=== PATIENT | female | born 1950 | race Caucasian/White ===

== ENCOUNTER 2019-12-02 22:12 | Emergency (ER) | payer MEDICARE, OTHER, SELFPAY ==
[2019-12-02 22:20] VITALS: BP 183/81; PULSE 78; RESP 16; TEMP 36.6; O2SAT 99; BMI 18.3
--- NOTE | 2019-12-03 00:01 | ED_ITS ---
Entered by Katina Raymundo, acting as scribe for Bill Lovelace MD Dec 02, 2019 22:12 HPI - General Adult General: Chief complaint: General Medical Stated complaint: sob, panic Time Seen by Provider: 12/02/19 23:56 Source: patient Mode of arrival: EMS Limitations: no limitations History of Present Illness: HPI narrative: 69 yo f came to the er pov with family for sob and panic attack. Onset was today. Pt states that she has also had a cough and that when she coughs it is tight. Pt denies a fever at this time. Pt states that she has had cancer in the past. MD complaint: shortness of breath, cough Onset (ago): day(s) (today) Radiation: non-radiation Relieving factors: none Exacerbating factors: none Associated symptoms: Reports chest pain, dyspnea and short of breath; Deny headache(s), rash or vomiting Treatments prior to arrival: none Review of Systems Const: Denies: fever or chills Eyes: Denies: change in vision ENMT: Denies: throat pain or mouth pain Card: Reports: chest pain Resp: Reports: shortness of breath GI: Denies: vomiting : Denies: difficulty urinating Musc: Denies: back pain or joint pain Skin/Breast: Denies: rash Neuro: Denies: headache Psych: Denies: depression Endo: Denies: excessive urination Leland/Lymph: Denies: easy bruising All/Imm: Denies: hives PFSH ED PFSH: Statuses (acute, chronic, etc) shown below reflect problem list status as previously entered and may not be historically accurate Social History Smoking and tobacco status: former smoker Physical Exam Const: COMMON NORMALS: no apparent distress and healthy appearing HENMT: COMMON NORMALS: normocephalic and external nose normal HEAD & SCALP: normocephalic NOSE: external nose normal and no nasal discharge (nasal dischage) Eye: COMMON NORMALS: PERRL PUPIL: Yes PERRL Neck/C-Spine: COMMON NORMALS: full ROM and no lymphadenopathy Chest: COMMONS NORMALS: inspection of chest normal Resp: COMMON NORMALS: normal respiratory effort and clear to auscultation bilaterally AUSCULTATION: clear to auscultation bilaterally Cardio: COMMON NORMALS: regular rate and regular rhythm RATE: regular rate RHYTHM: regular rhythm GI: COMMON NORMALS: soft to palpation PALPATION: Yes soft Extremity: COMMON NORMALS: normal to inspection, full ROM and normal capillary refill Psych: COMMON NORMALS: mental status grossly normal and cooperative Skin: COMMON NORMALS: no rashes or lesions noted GENERAL SKIN EXAM: no rashes or lesions noted Course Vital Signs: Vital signs: Vital Signs Temperature 97.9 F 12/02/19 22:20 Pulse Rate 84 12/03/19 00:30 Respiratory Rate 16 12/03/19 00:30 Blood Pressure 183/81 12/02/19 22:20 Pulse Oximetry 98 12/03/19 00:30 MDM - General Adult MDM Narrative: Medical decision making narrative: Patient presents here with dyspnea along with chest pain is atypical in nature. She has had anxiety along with a slight cough. X-ray and EKG are normal and troponins are normal as well. She has no signs of acute coronary cause or pulmonary embolism. Patient is stable for discharge and is to follow-up with primary care doctor in 3 to 5 days and is return to ER if worsening. She understands and agrees to plan. Lab Data: Labs: Lab Results 12/03/19 12/03/19 12/03/19 Range/Units 00:22 00:22 00:22 WBC 2.6 L (4.0-10.0) 10^3/ uL RBC 3.24 L (4.1-5.3) 10^6/u L Hgb 11.0 L (11.5-15.3) g/dL Hct 32.7 L (37.0-47.0) % MCV 100.9 H (81-99) fL MCH 34.0 (28.0-34.0) pg MCHC 33.6 (30.0-36.0) g/dL RDW 12.2 (12.1-15.1) % Plt Count 133 (130-400) 10^3/c mm MPV 9.5 (7.4-10.4) fL Neut % (Auto) 73.0 % Lymph % (Auto) 9.7 % Laurens % (Auto) 13.5 % Eos % (Auto) 1.5 % Baso % (Auto) 0.8 % Neut # (Auto) 1.9 (1.8-7.7) 10^3/u L Lymph # (Auto) 0.3 L (0.8-4.8) 10^3/u L Laurens # (Auto) 0.4 (0.2-0.9) 10^3/u L Eos # (Auto) 0.0 (0.0-0.8) 10^3/u L Baso # (Auto) 0.0 (0.0-0.1) 10^3/u L Nucleated RBC % (a uto) 0 % Nucleated RBCs # 0.0 /100WBC Sodium 138 (136-145) mmol/L Potassium 3.7 (3.5-5.1) mmol/L Chloride 102 (98-107) mmol/L Carbon Dioxide 23 (22-29) mmol/L Anion Gap 16.7 (5-19) BUN 14 (8-23) mg/dL Creatinine 1.1 H (0.5-0.9) mg/dL GFR Calculation 49.5 L (90-130) mL/min Glucose 101 (74-106) mg/dL Calcium 9.8 (8.8-10.2) mg/Dl Total Bilirubin 0.2 (0.15-1.2) mg/dL AST 20 (0-32) U/L ALT 17 (0-33) U/L Alkaline Phosphata se 42 (35-105) IU/L Troponin T Baselin e 13 H (0-10) ng/mL Troponin T 120 Min mary (0-10) ng/mL Delta Troponin T (0-10) ABS# Total Protein 6.7 (6.6-8.7) g/dL Albumin 4.9 (3.5-5.2) g/dL Globulin 1.8 (1.3-4.6) g/dL 12/03/19 Range/Units 02:06 WBC (4.0-10.0) 10^3/ uL RBC (4.1-5.3) 10^6/u L Hgb (11.5-15.3) g/dL Hct (37.0-47.0) % MCV (81-99) fL MCH (28.0-34.0) pg MCHC (30.0-36.0) g/dL RDW (12.1-15.1) % Plt Count (130-400) 10^3/c mm MPV (7.4-10.4) fL Neut % (Auto) % Lymph % (Auto) % Laurens % (Auto) % Eos % (Auto) % Baso % (Auto) % Neut # (Auto) (1.8-7.7) 10^3/u L Lymph # (Auto) (0.8-4.8) 10^3/u L Laurens # (Auto) (0.2-0.9) 10^3/u L Eos # (Auto) (0.0-0.8) 10^3/u L Baso # (Auto) (0.0-0.1) 10^3/u L Nucleated RBC % (a uto) % Nucleated RBCs # /100WBC Sodium (136-145) mmol/L Potassium (3.5-5.1) mmol/L Chloride (98-107) mmol/L Carbon Dioxide (22-29) mmol/L Anion Gap (5-19) BUN (8-23) mg/dL Creatinine (0.5-0.9) mg/dL GFR Calculation (90-130) mL/min Glucose (74-106) mg/dL Calcium (8.8-10.2) mg/Dl Total Bilirubin (0.15-1.2) mg/dL AST (0-32) U/L ALT (0-33) U/L Alkaline Phosphata se (35-105) IU/L Troponin T Baselin e (0-10) ng/mL Troponin T 120 Min mary 9.63 (0-10) ng/mL Delta Troponin T -3.37 L (0-10) ABS# Total Protein (6.6-8.7) g/dL Albumin (3.5-5.2) g/dL Globulin (1.3-4.6) g/dL Imaging Data^: CXR: Attestation: I personally reviewed and interpreted this imaging study as follows: My impression: no acute abnormality EKG Data^: EKG 1: Attestation: I personally reviewed and interpreted this EKG as follows: EKG interpretation date: 12/03/19 EKG interpretation time: 00:16 Interpretation: nsr hr [address] or t wave abnormalities qrs 106 qtc 412 EKG 2: EKG interpretation date: 12/03/19 EKG interpretation time: 02:18 Interpretation: nsr hr [address] or t wave abnormalities qrs 103 qtc 411 Discharge Plan Discharge Patient Disposition: Home, Self-Care Clinical Impression: Atypical chest pain Condition: Stable Prescriptions: No Action alprazolam 1 mg Tablet 1 mg PO DAILY RF: 0 Discharge Orders: Discharge Order (Routine); Ordered 12/03/19 Ordered By: Bill Lovelace Referrals: Ruy Haro MD [Primary Care Provider] - 4-7 days () Discharge Diet: Advance as tolerated Discharge Activity: Resume usual activity Patient Instructions: Chest Pain (ED) Coding Level of Care Code ED Corn Breeder for Chg Fwd Exam Problem Focused The documentation recorded by the Zackary delcid Stephanie Lyn, accurately reflects the service I personally performed and the decisions made by Radu nunes Korby, MD Dec 02, 2019 22:12
--- NOTE | 2019-12-03 00:04 | XR_ITS ---
WS: [id number] PORTABLE CHEST HISTORY: dyspnea COMPARISON: 11/08/2018 Hyperexpanded lungs with changes suspicious for emphysema. Similar to prior studies. No pneumonia. No rmal vasculature. No pleural effusion or pneumothorax. Cardiac size: Normal. Mediastinum/Aorta: Normal mediastinum. No osseous abnormality seen. XR/XR chest 1V portable [id number] IMPRESSION: Chronic emphysema with no pneumonia.
[2019-12-03] MEDS: LORazepam 2 mg/mL INJ 1 mL 0.5 MG IVP (00:05)
[2019-12-03 00:30] VITALS: PULSE 84; RESP 16; O2SAT 98
[2019-12-03 00:48] LABS: Alanine Aminotransferase 17 U/L (0-33); Albumin Level 4.9 g/dL (3.5-5.2); Alkaline Phosphatase 42 IU/L (35-105); Anion Gap 16.7 (5-19); Aspartate Amino Transferase 20 U/L (0-32); Blood Urea Nitrogen 14 mg/dL (8-23); Calcium 9.8 mg/Dl (8.8-10.2); Carbon Dioxide 23 mmol/L (22-29); Chloride 102 mmol/L (98-107); Globulin 1.8 g/dL (1.3-4.6); Glomerular Filtration Rate 49.5 mL/min (90-130); Glucose 101 mg/dL (74-106); Potassium 3.7 mmol/L (3.5-5.1); Sodium 138 mmol/L (136-145); Total Bilirubin 0.2 mg/dL (0.15-1.2); Total Protein 6.7 g/dL (6.6-8.7)
[2019-12-03 00:52] LABS: Troponin(5th) Baseline 13 ng/mL (0-10)
[2019-12-03 01:16] LABS: Basophils % 0.8 %; Eosinophils % 1.5 %; Hematocrit 32.7 % (37.0-47.0); Lymphocytes # 0.3 10^3/uL (0.8-4.8); Lymphocytes % 9.7 %; Mean Corpuscular HGB Conc 33.6 g/dL (30.0-36.0); Mean Corpuscular Volume 100.9 fL (81-99); Mean Platelet Volume 9.5 fL (7.4-10.4); Monocytes # 0.4 10^3/uL (0.2-0.9); Monocytes % 13.5 %; Neutrophils # 1.9 10^3/uL (1.8-7.7); Nucleated Red Blood Cells % 0 %; Platelet Count 133 10^3/cmm (130-400); Red Blood Count 3.24 10^6/uL (4.1-5.3); Red Cell Distribution Width 12.2 % (12.1-15.1); White Blood Count 2.6 10^3/uL (4.0-10.0)
--- NOTE | 2019-12-03 02:05 | ECG_ITS ---
Measurements Intervals Frannie Rate: 66 P: 72 IN: 105 QRS: -27 QRSD: 103 T: 64 QT: 398 QTc: 417 SINUS RHYTHM WITH SHORT IN INTERVAL BORDERLINE LEFT AXIS DEVIATION [QRS AXIS < -20] Compared to ECG 11/08/2018 09:36:08 Short IN interval now present Electronically Signed On 12-03-2019 19:23:03 SCREW MACHINE HAND by Triston Livingston M.D. [email or web address]
[2019-12-03 03:39] LABS: Troponin 5 2HR 9.63 ng/mL (0-10)
[2019-12-03 03:43] LABS: Troponin 5 2HR Delta -3.37 ABS# (0-10)
[2019-12-03 03:57] VITALS: BP 158/75; PULSE 78; RESP 19; TEMP 36.4; O2SAT 96
--- NOTE | 2019-12-03 06:05 | ECG_ITS ---
Measurements Intervals Witten Rate: 61 P: 71 OH: 108 QRS: -20 QRSD: 106 T: 64 QT: 409 QTc: 414 SINUS RHYTHM WITH SHORT OH INTERVAL Compared to ECG 11/08/2018 09:36:08 Short OH interval now present Electronically Signed On 12-03-2019 19:22:54 RESPIRATORY THERAPY INSTRUCTOR by Triston Livingston M.D. [email or web address]
== END 2019-12-03 03:58 | disposition home or self-care (01) ==
PROVIDERS: Emergency Provider Emergency Medicine; Family Provider Family Medicine; PCP Family Medicine
DX: R07.89 Other chest pain (principal); Z87.891 Personal history of nicotine dependence
CPT/HCPCS: 36415; 71045; 80053; 84484; 85025; 93005; 99282; 99283; J2060

== ENCOUNTER → 2019-12-10 11:13 | Outpatient (BNVA) | payer MEDICARE, OTHER, SELFPAY | PROVIDERS: Family Provider Family Medicine; PCP Family Medicine; Visit Provider Otolaryngology | DX: H93.93 Unspecified disorder of ear, bilateral (principal); H60.503 Unspecified acute noninfective otitis externa, bilateral; H61.23 Impacted cerumen, bilateral; H92.03 Otalgia, bilateral; H90.2 Conductive hearing loss, unspecified | CPT/HCPCS: 69210; 99214 ==

== ENCOUNTER 2019-12-12 08:14 | Outpatient (CLI) | payer MEDICARE, OTHER, SELFPAY ==
[2019-12-12 08:54] LABS: Basophils % 0.8 %; Hematocrit 32.2 % (37.0-47.0); Hemoglobin 10.6 g/dL (11.5-15.3); Lymphocytes # 0.4 10^3/uL (0.8-4.8); Lymphocytes % 11.1 %; Mean Corpuscular HGB Conc 32.9 g/dL (30.0-36.0); Mean Corpuscular Hemoglobin 32.6 pg (28.0-34.0); Mean Corpuscular Volume 99.1 fL (81-99); Monocytes # 0.5 10^3/uL (0.2-0.9); Monocytes % 12.9 %; Neutrophils # 2.9 10^3/uL (1.8-7.7); Neutrophils % 73.2 %; Nucleated Red Blood Cells % 0 %; Platelet Count 170 10^3/cmm (130-400); Red Blood Count 3.25 10^6/uL (4.1-5.3); Red Cell Distribution Width 12.2 % (12.1-15.1); White Blood Count 3.9 10^3/uL (4.0-10.0)
[2019-12-12 09:49] LABS: Alanine Aminotransferase 11 U/L (0-33); Albumin Level 4.3 g/dL (3.5-5.2); Alkaline Phosphatase 37 IU/L (35-105); Aspartate Amino Transferase 15 U/L (0-32); Blood Urea Nitrogen 10 mg/dL (8-23); Calcium 9.5 mg/Dl (8.8-10.2); Carbon Dioxide 22 mmol/L (22-29); Chloride 104 mmol/L (98-107); Globulin 2.1 g/dL (1.3-4.6); Glomerular Filtration Rate 62.5 mL/min (90-130); Glucose 87 mg/dL (74-106); Sodium 137 mmol/L (136-145); Total Bilirubin 0.2 mg/dL (0.15-1.2); Total Protein 6.4 g/dL (6.6-8.7)
[2019-12-12] MEDS: diphenhydrAMINE 25 mg Capsule PO (09:49)
[2019-12-12] MEDS: acetaminophen 325 mg Tablet 650 MG PO (09:49)
[2019-12-12] MEDS: sodium chloride 0.9% 250 ML 75 ML IV (09:59)
[2019-12-12] MEDS: dexamethasone 20 MG in sodium chloride 0.9% 50 ML 187 MG IV (09:59)
[2019-12-12 12:13] LABS: Ferritin 58 ng/mL (15-150); Iron 59 ug/dL (37-145); Percent Saturation 20.2 % (20-50); Total Iron Binding Capacity 291 mg/dL; Unsaturated Iron Binding 232 ug/dL (112-347)
[2019-12-12 12:29] LABS: Vitamin B12 529 pg/mL (232-1245)
== END 2019-12-12 08:15 | disposition home or self-care (01) ==
LOC: ONCMED 08:20
PROVIDERS: Internal Medicine Medical Oncology; Family Provider Family Medicine; PCP Family Medicine; Visit Provider Nurse Practitioner
DX: D80.1 Nonfamilial hypogammaglobulinemia (principal); C83.33 Diffuse large B-cell lymphoma, intra-abdominal lymph nodes
CPT/HCPCS: 80053; 82607; 82728; 83540; 83550; 85025; 96365; 96366; 96367; J1100; J1561; J7050

== ENCOUNTER → 2019-12-19 10:05 | Outpatient (BNVA) | payer MEDICARE, OTHER, SELFPAY | PROVIDERS: Family Provider Family Medicine; PCP Family Medicine; Referring Provider Family Medicine; Visit Provider Otolaryngology | DX: H60.393 Other infective otitis externa, bilateral (principal); H61.23 Impacted cerumen, bilateral; H92.03 Otalgia, bilateral; H90.2 Conductive hearing loss, unspecified | CPT/HCPCS: 69210; 99214 ==

== ENCOUNTER → 2019-12-26 10:51 | Outpatient (BNVA) | payer MEDICARE, OTHER, SELFPAY | PROVIDERS: Family Provider Family Medicine; PCP Family Medicine; Referring Provider Family Medicine; Visit Provider Otolaryngology | DX: H92.01 Otalgia, right ear (principal); H93.91 Unspecified disorder of right ear; H61.21 Impacted cerumen, right ear; H60.393 Other infective otitis externa, bilateral | CPT/HCPCS: 69210; 99214 ==

== ENCOUNTER 2020-01-13 10:00 | Outpatient (CLI) | payer MEDICARE, OTHER, SELFPAY ==
[2020-01-13] MEDS: dexamethasone 20 MG in sodium chloride 0.9% 50 ML 150 MG IV (10:37)
[2020-01-13] MEDS: diphenhydrAMINE 25 mg Capsule PO (10:37)
[2020-01-13] MEDS: acetaminophen 325 mg Tablet 650 MG PO (10:37)
[2020-01-13] MEDS: sodium chloride 0.9% 250 ML IV (10:37)
== END 2020-01-13 10:01 | disposition home or self-care (01) ==
LOC: ONCMED 10:01
PROVIDERS: Family Provider Family Medicine; PCP Family Medicine; Visit Provider Internal Medicine Medical Oncology
DX: D80.1 Nonfamilial hypogammaglobulinemia (principal)
CPT/HCPCS: 96365; 96366; 96367; J1100; J1561; J7050

== ENCOUNTER 2020-02-11 08:47 | Outpatient (CLI) | payer MEDICARE, OTHER, SELFPAY ==
[2020-02-11] MEDS: diphenhydrAMINE 25 mg Capsule PO (09:15)
[2020-02-11] MEDS: acetaminophen 325 mg Tablet 650 MG PO (09:15)
[2020-02-11] MEDS: sodium chloride 0.9% 250 ML 75 ML IV (09:20)
[2020-02-11] MEDS: dexamethasone 20 MG in sodium chloride 0.9% 50 ML 150 MG IV (09:20)
== END 2020-02-11 08:48 | disposition home or self-care (01) ==
LOC: ONCMED 08:47
PROVIDERS: Family Provider Family Medicine; PCP Family Medicine; Visit Provider Internal Medicine Medical Oncology
DX: D80.1 Nonfamilial hypogammaglobulinemia (principal)
CPT/HCPCS: 96365; J1100; J1561; J7050

== ENCOUNTER 2020-03-18 15:55 | Outpatient (CLI) | payer MEDICARE, OTHER, SELFPAY ==
[2020-03-18 19:31] LABS: Basophils % 0.6 %; Eosinophils # 0.1 10^3/uL (0.0-0.8); Eosinophils % 1.6 %; Hematocrit 31.4 % (37.0-47.0); Hemoglobin 10.5 g/dL (11.5-15.3); Lymphocytes # 0.5 10^3/uL (0.8-4.8); Lymphocytes % 15.1 %; Mean Corpuscular HGB Conc 33.4 g/dL (30.0-36.0); Mean Corpuscular Hemoglobin 35.1 pg (28.0-34.0); Monocytes # 0.4 10^3/uL (0.2-0.9); Monocytes % 13.5 %; Neutrophils # 2.1 10^3/uL (1.8-7.7); Neutrophils % 68.2 %; Nucleated Red Blood Cells % 0 %; Platelet Count 143 10^3/cmm (130-400); Red Blood Count 2.99 10^6/uL (4.1-5.3); White Blood Count 3.1 10^3/uL (4.0-10.0)
[2020-03-18 20:02] LABS: Alanine Aminotransferase 11 U/L (0-33); Albumin Level 4.1 g/dL (3.5-5.2); Alkaline Phosphatase 32 IU/L (35-105); Aspartate Amino Transferase 15 U/L (0-32); Blood Urea Nitrogen 15 mg/dL (8-23); Calcium 9.2 mg/dL (8.5-10.5); Carbon Dioxide 24 mmol/L (22-29); Chloride 106 mmol/L (98-107); Globulin 2.4 g/dL (1.3-4.6); Glomerular Filtration Rate 62.5 mL/min (90-130); Glucose 71 mg/dL (65-115); Lactate Dehydrogenase 186 U/L (135-214); Osmolality Calculated 289 mOsm/kg (285-295); Sodium 142 mmol/L (136-145); Total Bilirubin 0.2 mg/dL (0.15-1.2); Total Protein 6.5 g/dL (6.6-8.7)
[2020-03-19 10:11] LABS: Vitamin B12 337 pg/mL (232-1245)
== END 2020-03-18 15:56 | disposition home or self-care (01) ==
LOC: ONCMED 03-19 09:42
PROVIDERS: Family Provider Family Medicine; PCP Family Medicine; Visit Provider Internal Medicine Medical Oncology
DX: C83.33 Diffuse large B-cell lymphoma, intra-abdominal lymph nodes (principal); D80.1 Nonfamilial hypogammaglobulinemia
CPT/HCPCS: 80053; 82607; 83615; 85025

== ENCOUNTER 2020-03-19 08:00 | Outpatient (CLI) | payer MEDICARE, OTHER, SELFPAY ==
[2020-03-19] MEDS: dexamethasone 20 MG in sodium chloride 0.9% 50 ML 150 MG IV (09:00)
[2020-03-19] MEDS: diphenhydrAMINE 25 mg Capsule PO (10:09)
[2020-03-19] MEDS: acetaminophen 325 mg Tablet 650 MG PO (10:11)
--- NOTE | 2020-03-21 08:21 | ONC FU_ITS ---
Dr. Fontanez Patient Follow-Up Note Patient: Kaylah Arce Unit #: [id number]: 1950 Dicatated By: Nghia Fontanez M.D.Date of Visit:Mar 19, 2020 Onc Med Follow-up/Prog Note Chief Complaint: Non-Hodgkin's lymphoma. History of Present Illness: This is a 69 year-old woman with relapsed diffuse large B-cell lymphoma. In May 2017 she had presented to the emergency room with complaints of feeling nauseated and sick. She thought she was having a reaction to medication. She was found to be significantly hypokalemic. A contrast-enhanced CT of the abdomen/pelvis showed moderate colonic fecal debris and prominent abdominal aortic vessel calcifications. There were no other acute findings. Her symptoms continued to worsen, and she eventually became aware of a knot in her abdomen, which she thought was a hernia. She was then seen by Dr. Haro, and a repeat CT of the abdomen on 08/18/2017 showed interval development of extensive retroperitoneal and periaortic lymphadenopathy, felt to be most consistent with lymphoma. The largest lymph node measured in the range of 3-[address] directed core needle biopsy of the abdominal mass on 08/28/2017. The final pathology report indicated diffuse large B-cell lymphoma, germinal center phenotype. The tumor cells were positive for CD20, CD10, BCL 6, MUM1, and BCL-2. They were negative for CD3, CD5, cyclin D1, and FANG. The Ki-67 was estimated at 60-80%. Bone marrow aspiration/biopsy on 09/08/2017 showed no obvious involvement with lymphoma. Staging PET/CT on 09/09/2017 showed bulky retroperitoneal adenopathy and matted mesenteric adenopathy with greatest axial dimension of 9.3 cm, SUV 30.2. Also noted was a 1.1 cm mediastinal lymph node with SUV 11.9, a 1.2 cm slightly higher posterior mediastinal lymph node with SUV 11.4, and a 1.2 cm retrocrural node with SUV 14.6. She began a course of treatment R-CHOP chemotherapy, cycle 1 beginning on 09/14/2017. She did receive first cycle prophylaxis with Neulasta. She was severely neutropenic at day 8 with absolute neutrophil count 100. She recovered uneventfully, and she was able to proceed with cycle 2 on 10/05/2017. She was seen for a scheduled visit on 10/26/2017. Her blood counts at that point were adequate, but her treatment was delayed one week due to poor performance status. At that point she did start on prednisone 20 mg daily. She had restaging PET/CT on 10/28/2017. It showed significant response to chemotherapy with only retroperitoneal lymph nodes remaining as represented by 1.5 cm left sided infrarenal node with SUV 2.9 compared to 4.1 cm with SUV 22.8 on the pretreatment study. She continued with cycle 3 of R-CHOP on 11/01/2017 and was cycle 4 on 01/23/2017. Following cycle 4, she had significant worsening of fatigue, nausea/vomiting, and anorexia, requiring admission to the hospital on 11/29/2017. She was severely neutropenic, ANC 100. She was not febrile at that time. She was started on prophylactic antibiotic therapy, and by 12/03/2017 her white count was back up to 7700. She was still moderately anemic, which she was feeling better and she was then discharged home. On 12/06/2017 she was readmitted to the hospital with persistent nausea, severe fatigue, and low-grade fever. Her white cell count was elevated at 10,900. Her urine culture grew Escherichia coli, ESBL. Her blood cultures were negative. She was discharged on 12/08/2017. Her fever persisted, and her port was subsequently removed as an outpatient. I had seen her for a follow-up visit on 12/20/2017. At that point she was still very weak. She had significant nausea/anorexia. I opted to stop her chemotherapy, as I did not feel she would be able to tolerate further treatment. She did agree to try Compazine in combination with Marinol for the nausea/anorexia. She had restaging CT of the chest, abdomen, and pelvis on 12/22/2017. There was no evidence of lymphadenopathy in the chest. There were multiple indeterminate pulmonary nodules, all less than 5 mm, felt to most likely represent benign lesions. There was markedly improved mesenteric and retroperitoneal lymphadenopathy, but with residual left periaortic and central mesenteric soft tissue measuring 1.7 x 1.8 cm and 1.3 x 3.1 cm respectively. At that time she declined any further evaluation. A repeat PET/CT on 03/10/2018 showed abnormal activity in the retroperitoneum and mesenteric territories consistent with recurrent lymphoma. Hypermetabolic lymph nodes were noted in the retrocaval, left periaortic, and mesenteric territories. An index left periaortic lymph node measured 2.3 cm at SUV 22.0. At that point she did agree to referral to [facility]. She then underwent salvage chemotherapy with R-ICE in preparation for high-dose chemotherapy/stem cell transplant. She began cycle 1 on 04/11/2018. She required hospital admission on 04/15/2018 for nausea/vomiting. She then became severely neutropenic, but she recovered uneventfully. She continued with cycle 2 on 05/02/2018. Repeat PET/CT on 05/23/2018 showed progressive disease. In May she began the process of Car T therapy with pheresis of lymphocytes on 06/14/2018. She then underwent lymphodepleting chemotherapy 07/11- 07/13/2018 and she received Yescarta infusion on 07/16/2018. She had evidence of complete remission on her day 64 PET/CT. Her treatment was complicated by pancytopenia and persistent neutropenia, requiring growth factor support with Neupogen. She did show significant recovery of her neutrophil count in the latter part of October. Her other medical illnesses include hypertension and GERD. She has history of smoking 1 pack of cigarettes daily for 25 years. She quit smoking in 2013. INTERIM HISTORY: Her restaging PET/CT on 12/01/2018 continued to show FDG negative retroperitoneal and mesenteric lymph nodes and no findings to indicate active lymphoma. At her follow-up visit at [facility] on 12/31/2018 she had complained of double vision, and arrangements were made for neurology referral to evaluate for myasthenia gravis. Her blood counts were adequate. However, she was found to have hypogammaglobulinemia with her IgG level low at 341 mg/dL, and she was recommended to receive replacement IVIG monthly for 6 months. She received the initial infusion on 01/14/2019. She tolerated it well, and she then continued the IVIG infusions monthly. She completed her 6th infusion on 06/03/2019. She had a follow-up visit at [facility] on 05/27/2019. Her PET/CT at that time showed continued complete response. She continued on observation/expectant management. She was recommended to have one more PET/CT at a 3-month follow-up interval, but that was denied by her insurance. At her follow-up visit at [facility] in November 2019 they found no evidence of recurrence of her lymphoma. She still had significant hypogammaglobulinemia, and it was recommended that she continue replacement IVIG for another 6 months. She is seen for a scheduled visit. She has now completed 3 of 6 planned monthly IVIG infusions. She has been tolerating the treatment well. She has been feeling good generally, though she has not been very active. Her ECOG score is 1. She has good appetite. She has no fever or night sweats. She still is having double vision, and she does seem to have headache associated with it. She recently had an episode of shortness of breath which lasted for 2 to 3 days. She was having cough with it. She was seen in the emergency room and her evaluation was unrevealing. Those symptoms have improved, though she still has some sinus drainage and cough. She does not complain of chest pain. She still has a little nausea. She has a tinge of heartburn. Bowel function has been okay. She has no complaints. She has a little bit of joint pain. She has some orthostatic lightheadedness. She has occasional tingling. She has no other focal neurologic symptoms. She does have significant anxiety, but it is managed adequately with alprazolam. Medications: ALPRAZolam 1 Tablet (of 1 mg) Oral at bedtime PRN, Excedrin Extra Strength 2 Tablet (of 250-250-65 mg) Oral daily Allergies: BACTRIM and Metoprolol Tartrate. Review of Systems: Constitutional - Her energy is OK, but she is not very activy. Appetite is good and weight is stable. No fever, night sweats, or hot flashes. ECOG score is 1, Eyes - She still has double vision, ENMT - She has some sinus drainage. No mouth sores. No sore throat or difficulty swallowing, Hematologic/Lymphatic - She has easy bruising, Respiratory - She recently had shortness of breath lasting 2 or 3 days. She also has had some cough. No pleuritic pain or hemoptysis, Cardiovascular - No angina pain. No palpitations, Gastrointestinal - She still has a little nausea. She has a tinge of heartburn. Bowels have been OK. No blood in the stool or black stools, Genitourinary (F) - No dysuria or hematuria. No urinary frequency. No urgency or incontinence, Musculoskeletal - She has a little bit of joint pain, Integumentary - No skin complications, Neurologic - She has headaches. She has some orthostatic lightheadedness. She occasionally has tingling, Psychiatric - She has anxiety. She has insomnia. Vital Signs: Performed on Mar 19, 2020 08:06 Height - 65.50 in Weight - 117.6 lbs (HIGH) BSA - 1.59 sq.m BMI - 19.27 Temperature - 98.4 F Pulse - 62 /min Respiration - 18 /min BP - 133/64 mm(hg) O2 Sat - 100 % Pain - 0 Physical Examination: Constitutional - She looks pretty good generally, Eyes - Sclerae nonicteric. Conjunctivae clear, ENMT - No lesions noted in the oral cavity, Hematologic/Lymphatic - She has slightly prominent submandibular glands. There is no cervical, clavicular, or axillary adenopathy, Respiratory - Lungs are clear with good air movement bilaterally, Cardiovascular - Heart rhythm is regular. There is no murmur, gallop, or rub noted, Abdomen - Soft. Liver and spleen are not enlarged. There is no abdominal mass or ascites noted. There is no inguinal adenopathy, Extremities - No edema, Neurologic - No focal neurologic deficits noted. Lab/Imaging: Test performed on Mar 18, 2020 15:55 LDH (Total) 186 U/L Sodium 142 mmol/L Potassium 4.0 mmol/L Chloride 106 mmol/L CO2 24 mmol/L Anion Gap 16.0 BUN 15 mg/dL Creatinine 0.9 mg/dL Cr Clearance (Est) 49.6900 mL/min eGFR 62.5 mL/min Glucose 71 mg/dL Calcium 9.2 mg/dL Protein, Total 6.5 g/dL Albumin 4.1 g/dL Globulin 2.4 g/dL Bilirubin, Total 0.2 mg/dL ALT (SGPT) 11 U/L AST (SGOT) 15 U/L Alkaline Phosphatase 32 IU/L WBC 3.1 10 3/uL RBC 2.99 10 6/uL HGB 10.5 g/dL HCT 31.4 % MCV 105.0 fL MCH 35.1 pg MCHC 33.4 g/dL RDW 12.0 % Platelet Count 143 10 3/cmm MPV 10.0 fL Neutrophils 2.1 10 3/uL Lymphocytes 0.5 10 3/uL Monocytes 0.4 10 3/uL Eosinophils 0.1 10 3/uL Basophils 0.0 10 3/uL Neutrophil % 68.2 % Lymphocyte % 15.1 % Monocyte % 13.5 % Eosinophil % 1.6 % Basophils % 0.6 % Impression: 1. Patient with diffuse large B-cell lymphoma, germinal center phenotype, presenting as rapidly enlarging abdominal mass. By clinical evaluation her disease was stage IIIB. It was high risk with NCCN-IPI score of 6. 2. She was treated with R-CHOP chemotherapy beginning in August 2017. She appeared to have complete response by follow-up PET/CT after 3 cycles. She had multiple treatment related toxicities, and her chemotherapy was stopped after the 4th cycle, which she received on 11/22/2018. 3. Repeat CT on 12/22/2017 showed evidence of residual left periaortic and central mesenteric soft tissue suggestive of residual lymphadenopathy. She initially declined further evaluation. Restaging PET/CT on 03/10/2018 showed abnormal activity in the retroperitoneum and mesenteric territories consistent with recurrent lymphoma. 4. With her PET/CT showing evidence of disease progression, she was referred to [facility]. She underwent salvage chemotherapy with 2 cycles of R-ICE in preparation for high-dose chemotherapy/stem cell transplant. However, her restaging PET/CT on 05/23/2018 showed disease progression. 5. She then underwent Car T therapy with pheresis of lymphocytes for Yescarta production on 06/14/2018, infusion of lymphodepleting chemotherapy 07/11 -07/13/2018, and Yescarta infusion on 07/16/2018. Her other medical illnesses include: 6. Hypertension. 7. GERD. 8. Chronic anxiety. She had developed pancytopenia and prolonged neutropenia following the Car T therapy, requiring growth factor support with Neupogen, but her neutrophil count did recover in the latter part of October. Her restaging PET/CT on 12/01/2018 showed sustained complete response to the Car T therapy. At her follow-up visit at [facility] in December 2018 she was found to have hypogammaglobulinemia. This was presumed to be secondary to the Car T therapy. She was given replacement IVIG monthly for 6 cycles, which she completed last month. Her restaging PET/CT at [facility] on 05/27/2019 showed continued complete response. She had gradual recovery following the Car T therapy. Her main problem has been persistent double vision. She was recommended to have additional evaluation including nerve conduction studies and MRI, which she has thus far declined. A 3-month interval restaging PET/CT was also recommended, but that study was denied by her insurance. At her follow-up visit at [facility] in November 2019 there was no evidence of recurrence of the lymphoma, but she still had significant hypogammaglobulinemia, and she was recommended to continue monthly replacement IVIG for an additional 6 months. She has been tolerating this well. Overall, she appears to be doing very well clinically. Plan: She remains on observation/expectant management for the lymphoma. She will continue with her 4th of 6 planned monthly IVIG infusions. She will return monthly for her IVIG. I will see her again in 3 months. Signed By: Nghia Fontanez M.D. <<Signature on File>>
== END 2020-03-19 08:01 | disposition home or self-care (01) ==
LOC: ONCMED 08:01
PROVIDERS: Family Provider Family Medicine; PCP Family Medicine; Visit Provider Internal Medicine Medical Oncology
DX: D80.1 Nonfamilial hypogammaglobulinemia (principal); C83.33 Diffuse large B-cell lymphoma, intra-abdominal lymph nodes; I10 Essential (primary) hypertension; K21.9 Gastro-esophageal reflux disease without esophagitis; F41.9 Anxiety disorder, unspecified; Z92.21 Personal history of antineoplastic chemotherapy; Z79.899 Other long term (current) drug therapy
CPT/HCPCS: 96365; 96366; 96367; G0463; J1100; J1561

== ENCOUNTER → 2020-04-06 08:37 | Outpatient (BNVA) | payer MEDICARE, OTHER, SELFPAY | PROVIDERS: Family Provider Family Medicine; PCP Family Medicine; Visit Provider Social Worker | DX: F33.1 Major depressive disorder, recurrent, moderate (principal); F41.1 Generalized anxiety disorder | CPT/HCPCS: 90834 ==

== ENCOUNTER 2020-04-17 07:57 | Outpatient (CLI) | payer MEDICARE, OTHER, SELFPAY ==
[2020-04-17] MEDS: sodium chloride 0.9% 250 ML 999 ML IV (08:30)
[2020-04-17] MEDS: acetaminophen 325 mg Tablet 650 MG PO (08:45)
[2020-04-17] MEDS: dexamethasone 20 MG in sodium chloride 0.9% 50 ML 187 MG IV (08:50)
[2020-04-17] MEDS: diphenhydrAMINE 25 mg Capsule PO (10:32)
== END 2020-04-17 07:58 | disposition home or self-care (01) ==
LOC: ONCMED 08:02
PROVIDERS: PCP Family Medicine; Visit Provider Internal Medicine Medical Oncology
DX: D80.1 Nonfamilial hypogammaglobulinemia (principal); C83.33 Diffuse large B-cell lymphoma, intra-abdominal lymph nodes; R19.00 Intra-abdominal and pelvic swelling, mass and lump, unspecified site; R11.0 Nausea; R63.0 Anorexia
CPT/HCPCS: 96361; 96365; 96366; 96367; J1100; J1561; J7050

== ENCOUNTER 2020-06-04 09:19 | Outpatient (CLI) | payer MEDICARE, OTHER, SELFPAY ==
--- NOTE | 2020-06-04 09:27 | MM_ITS ---
WS: [id number] BILATERAL DIGITAL SCREENING MAMMOGRAPHY WITH CAD CLINICAL INFORMATION: SCREENING HISTORY: Screening mammogram. No current complaints. COMPARISON: TECHNIQUE: Bilateral CC and MLO views. FINDINGS: The breasts are composed of heterogeneous fibroglandular density tissue, which can limit the detectio n of small underlying mass lesions. No suspicious mass, asymmetry, calcifications, or architectural d istortion. No evidence of malignancy. Vascular calcification MM/[id number] IMPRESSION: BI-RADS: 2-Benign FOLLOW UP: 1 Year Follow-up Recommend return to annual screening mammography.
== END 2020-06-04 09:20 | disposition home or self-care (01) ==
LOC: RADSHAW 09:24
PROVIDERS: PCP Family Medicine; Visit Provider Family Medicine
DX: Z12.31 Encounter for screening mammogram for malignant neoplasm of breast (principal)
CPT/HCPCS: 77067

== ENCOUNTER → 2020-06-10 14:00 | Outpatient (BNVA) | payer MEDICARE, OTHER, SELFPAY | PROVIDERS: PCP Family Medicine; Visit Provider Obstetrics & Gynecology | DX: Z12.4 Encounter for screening for malignant neoplasm of cervix (principal) | CPT/HCPCS: 88175 ==

== ENCOUNTER 2020-08-12 13:47 | Outpatient (CLI) | payer MEDICARE, OTHER, SELFPAY ==
[2020-08-12 14:11] LABS: Basophils % 1.6 %; Eosinophils # 0.1 10^3/uL (0.0-0.8); Eosinophils % 2.7 %; Hematocrit 34.8 % (37.0-47.0); Hemoglobin 11.6 g/dL (11.5-15.3); Lymphocytes # 0.5 10^3/uL (0.8-4.8); Mean Corpuscular HGB Conc 33.3 g/dL (30.0-36.0); Mean Corpuscular Hemoglobin 34.1 pg (28.0-34.0); Mean Corpuscular Volume 102.4 fL (81-99); Mean Platelet Volume 9.3 fL (7.4-10.4); Monocytes # 0.3 10^3/uL (0.2-0.9); Monocytes % 11.7 %; Neutrophils # 1.67 10^3/uL (1.8-7.7); Neutrophils % 65.2 %; Nucleated Red Blood Cells % 0 %; Platelet Count 140 10^3/cmm (130-400); White Blood Count 2.6 10^3/uL (4.0-10.0)
[2020-08-12 14:36] LABS: Alanine Aminotransferase 13 U/L (0-33); Albumin Level 4.4 g/dL (3.5-5.2); Alkaline Phosphatase 34 IU/L (35-105); Anion Gap 15.1 (5-19); Aspartate Amino Transferase 13 U/L (0-32); Blood Urea Nitrogen 13 mg/dL (8-23); Calcium 9.5 mg/dL (8.5-10.5); Carbon Dioxide 24 mmol/L (22-29); Chloride 104 mmol/L (98-107); Globulin 2.2 g/dL (1.3-4.6); Glomerular Filtration Rate 55.3 mL/min (90-130); Glucose 101 mg/dL (65-115); Immunoglobulin IGG 444 mg/dL (700-1600); Immunoglobulin IGM 28 mg/dL (40-230); Osmolality Calculated 288 mOsm/kg (285-295); Potassium 4.1 mmol/L (3.5-5.1); Sodium 139 mmol/L (136-145); Total Bilirubin 0.2 mg/dL (0.15-1.2); Total Protein 6.6 g/dL (6.6-8.7)
[2020-08-12 14:47] LABS: Lactate Dehydrogenase 187 U/L (135-214); Thyroid Stimulating Hormone 1.07 uIU/mL (0.27-4.20)
[2020-08-12 15:09] LABS: Ferritin 69 ng/mL (15-150); Iron 95 ug/dL (37-145); Percent Saturation 32.4 % (20-50); Total Iron Binding Capacity 293 mcg/dl; Unsaturated Iron Binding 198 ug/dL (112-347)
[2020-08-12 15:39] LABS: Immunoglobulin IGA < 50 mg/dL (70-400)
[2020-08-12 16:33] LABS: Folate Level > 20.0 ng/mL (4.8-37.3)
--- NOTE | 2020-08-19 11:02 | ONC FU_ITS ---
[facility] Patient Note Patient: Kaylah Arce Unit #: [id number]: 1950 Dictated By: Kristie CasillasDate of Visit: Aug 12, 2020 Onc MED Follow-Up/Prog Note Chief Complaint: Non-Hodgkin's lymphoma. History of Present Illness: Ms Arce is a 69 year-old woman with relapsed diffuse large B-cell lymphoma. In May 2017 she had presented to the emergency room with complaints of feeling nauseated and sick. She thought she was having a reaction to medication. She was found to be significantly hypokalemic. A contrast-enhanced CT of the abdomen/pelvis showed moderate colonic fecal debris and prominent abdominal aortic vessel calcifications. There were no other acute findings. Her symptoms continued to worsen, and she eventually became aware of a knot in her abdomen, which she thought was a hernia. She was then seen by Dr. Haro, and a repeat CT of the abdomen on 08/18/2017 showed interval development of extensive retroperitoneal and periaortic lymphadenopathy, felt to be most consistent with lymphoma. The largest lymph node measured in the range of 3-[address] directed core needle biopsy of the abdominal mass on 08/28/2017. The final pathology report indicated diffuse large B-cell lymphoma, germinal center phenotype. The tumor cells were positive for CD20, CD10, BCL 6, MUM1, and BCL-2. They were negative for CD3, CD5, cyclin D1, and FANG. The Ki-67 was estimated at 60-80%. Bone marrow aspiration/biopsy on 09/08/2017 showed no obvious involvement with lymphoma. Staging PET/CT on 09/09/2017 showed bulky retroperitoneal adenopathy and matted mesenteric adenopathy with greatest axial dimension of 9.3 cm, SUV 30.2. Also noted was a 1.1 cm mediastinal lymph node with SUV 11.9, a 1.2 cm slightly higher posterior mediastinal lymph node with SUV 11.4, and a 1.2 cm retrocrural node with SUV 14.6. She began a course of treatment R-CHOP chemotherapy, cycle 1 beginning on 09/14/2017. She did receive first cycle prophylaxis with Neulasta. She was severely neutropenic at day 8 with absolute neutrophil count 100. She recovered uneventfully, and she was able to proceed with cycle 2 on 10/05/2017. She was seen for a scheduled visit on 10/26/2017. Her blood counts at that point were adequate, but her treatment was delayed one week due to poor performance status. At that point she did start on prednisone 20 mg daily. She had restaging PET/CT on 10/28/2017. It showed significant response to chemotherapy with only retroperitoneal lymph nodes remaining as represented by 1.5 cm left sided infrarenal node with SUV 2.9 compared to 4.1 cm with SUV 22.8 on the pretreatment study. She continued with cycle 3 of R-CHOP on 11/01/2017 and was cycle 4 on 01/23/2017. Following cycle 4, she had significant worsening of fatigue, nausea/vomiting, and anorexia, requiring admission to the hospital on 11/29/2017. She was severely neutropenic, ANC 100. She was not febrile at that time. She was started on prophylactic antibiotic therapy, and by 12/03/2017 her white count was back up to 7700. She was still moderately anemic, which she was feeling better and she was then discharged home. On 12/06/2017 she was readmitted to the hospital with persistent nausea, severe fatigue, and low-grade fever. Her white cell count was elevated at 10,900. Her urine culture grew Escherichia coli, ESBL. Her blood cultures were negative. She was discharged on 12/08/2017. Her fever persisted, and her port was subsequently removed as an outpatient. I had seen her for a follow-up visit on 12/20/2017. At that point she was still very weak. She had significant nausea/anorexia. Dr Fontanez opted to stop her chemotherapy, as it was felt that she would not be able to tolerate any further treatment. She did agree to try Compazine in combination with Marinol for the nausea/anorexia. She had restaging CT of the chest, abdomen, and pelvis on 12/22/2017. There was no evidence of lymphadenopathy in the chest. There were multiple indeterminate pulmonary nodules, all less than 5 mm, felt to most likely represent benign lesions. There was markedly improved mesenteric and retroperitoneal lymphadenopathy, but with residual left periaortic and central mesenteric soft tissue measuring 1.7 x 1.8 cm and 1.3 x 3.1 cm respectively. At that time she declined any further evaluation. A repeat PET/CT on 03/10/2018 showed abnormal activity in the retroperitoneum and mesenteric territories consistent with recurrent lymphoma. Hypermetabolic lymph nodes were noted in the retrocaval, left periaortic, and mesenteric territories. An index left periaortic lymph node measured 2.3 cm at SUV 22.0. At that point she did agree to referral to [facility]. She then underwent salvage chemotherapy with R-ICE in preparation for high-dose chemotherapy/stem cell transplant. She began cycle 1 on 04/11/2018. She required hospital admission on 04/15/2018 for nausea/vomiting. She then became severely neutropenic, but she recovered uneventfully. She continued with cycle 2 on 05/02/2018. Repeat PET/CT on 05/23/2018 showed progressive disease. In May she began the process of Car T therapy with pheresis of lymphocytes on 06/14/2018. She then underwent lymphodepleting chemotherapy 07/11- 07/13/2018 and she received Yescarta infusion on 07/16/2018. She had evidence of complete remission on her day 64 PET/CT. Her treatment was complicated by pancytopenia and persistent neutropenia, requiring growth factor support with Neupogen. She did show significant recovery of her neutrophil count in the latter part of October. Her other medical illnesses include hypertension and GERD. She has history of smoking 1 pack of cigarettes daily for 25 years. She quit smoking in 2013. INTERIM HISTORY: Her restaging PET/CT on 12/01/2018 continued to show FDG negative retroperitoneal and mesenteric lymph nodes and no findings to indicate active lymphoma. At her follow-up visit at [facility] on 12/31/2018 she had complained of double vision, and arrangements were made for neurology referral to evaluate for myasthenia gravis. Her blood counts were adequate. However, she was found to have hypogammaglobulinemia with her IgG level low at 341 mg/dL, and she was recommended to receive replacement IVIG monthly for 6 months. She received the initial infusion on 01/14/2019. She tolerated it well, and she then continued the IVIG infusions monthly. She completed her 6th infusion on 06/03/2019. She had a follow-up visit at [facility] on 05/27/2019. Her PET/CT at that time showed continued complete response. She continued on observation/expectant management. She was recommended to have one more PET/CT at a 3-month follow-up interval, but that was denied by her insurance. At her follow-up visit at [facility] in November 2019 they found no evidence of recurrence of her lymphoma. She still had significant hypogammaglobulinemia, and it was recommended that she continue replacement IVIG for another 6 months. Ms. Arce request a urgent unscheduled visit. She states that she is just having severe fatigue and just does not feel that she is bouncing back like she should be. She denies any fever or chills. She has had no exposure that she is aware of to COVID-19 and displays no current symptoms. She states she is just tired. She states she walks about 1.1 miles a day and has done this for several weeks and does does not feel she is gaining any strength. She has no specific complaints other than just being tired. She denies any new pain. She is had no fever or chills. She states her appetite is good. Her energy at home is fair-she can get her chores done but has to rest in between at times. She denies any new shortness of breath or orthopnea. She denies chest pain or palpitations. She states her bowels and bladder are normal for her. She denies any lower extremity edema. She is had no abdominal pain. She denies headaches or vision changes. She has had no speech problems or new forgetfulness. She denies any mouth sores or sore throat. She is had no skin rashes or lesions. She states she is had some non-specific, generalized muscle discomfort off and on the discomfort comes and goes. She states she cannot pinpoint any particular pattern and is goes away on its own as well. But she states is just been muscle aches off and on but this is gone on for the last several months and has not worsened. She has no specific complaints other than just significant fatigue. She states she is due to be seen back in [place] within the next month or so and believe she is scheduled for follow-up PET/CT at that time. Her ECOG is 1 Past Medical History: Gastroesophageal reflux disease Hypertension Past Surgical History: Breast biopsy - BENIGN [facility] Allergies: BACTRIM and Metoprolol Tartrate. Medications: ALPRAZolam 1 Tablet (of 1 mg) Oral at bedtime PRN B-12 1 Tablet (of 500 mcg) Oral daily C 1000 1 Tablet (of 1000 mg) Oral daily Excedrin Extra Strength 2 Tablet (of 250-250-65 mg) Oral daily Family History: Ms. Arce's mother is alive. Ms. Arce's father is : coronary artery disease. Her paternal grandmother is . Ms. Arce has 2 brothers: 2 alive. Her father had heart disease and he of cancer, possibly kidney cancer, but that is uncertain. Her mother still living at age 88. Two brothers are in good health. Social History: Ms. Arce is single. Ms. Arce quit smoking 4 years ago but had smoked 1.0 pack/day for 25 years. She has no history of drinking. She has history of smoking 1 pack of cigarettes daily for 25 years. She quit smoking in 2013. She does not drink alcohol. Review Of Symptoms: Constitutional Denies fevers, chills, night sweats, or weight loss. Fatigue-see above Allergic/Immunologic No reactions. Eyes Denies significant visual changes. No diplopia. No amaurosis. ENMT Denies changes in hearing, sore throat, mouth sores, difficulty or changes in swallowing ability, and/or sinus drainage. Endocrine No diabetes, thyroid disease or hormone replacement. Denies hot flashes or night sweats. Hematologic/Lymphatic Denies easy bruising or bleeding. The patient denies any tender or palpable lymph nodes. Respiratory Denies dyspnea on exertion, chest pain, cough or hemoptysis. Denies orthopnea. Cardiovascular Denies anginal chest pain, palpitations or orthopnea. Gastrointestinal Denies nausea, vomiting, diarrhea, GI bleeding, or constipation. Denies change in bowel habits and/or stool color, no heartburn or early satiety. Genitourinary (F) No hematuria, hesitancy, incontinence, vaginal bleeding, discharge or other problems with urination. Musculoskeletal Denies joint pain, swelling or redness. No decreased range of motion. Intermittent, random muscle pain for several months-no worse-no better. Integumentary Denies chronic rashes, inflammation, ulcerations or skin changes. Neurologic Denies headache, blurred vision, and no areas of focal weakness or numbness. Normal gait. No sensory problems. Psychiatric Denies insomnia, depression, melodie or mood swings. Vital Signs: Performed on Aug 12, 2020 14:34 Height - 65.50 in Weight - 116.4 lbs (LOW) BSA - 1.58 sq.m BMI - 19.08 Temperature - 98.0 F (LOW) Pulse - 64 /min Respiration - 16 /min BP - 137/64 mm(hg) O2 Sat - 98 % Pain - 0,1 - No physically strenuous activity, but ambulatory and able to carry out light or sedentary work (e.g. office work, light house work). (ECOG) Physical Examination: Constitutional Alert, oriented, no acute distress. Skin pink, warm and dry. Weak overall. Head Normocephalic; atraumatic. Eyes Conjunctivae and sclerae are clear and without icterus. Pupils are reactive and equal. ENMT No oral exudates, ulcers, masses, thrush or mucositis. Oropharynx clear. Tongue normal. Neck Supple without masses or thyromegaly. No jugular venous distension. Hematologic/Lymphatic No petechiae or purpura. No tender or palpable lymph nodes in the cervical, supraclavicular, or axillary area. Respiratory Lungs are clear to auscultation without rhonchi or wheezing. Cardiovascular Regular rate and rhythm of heart without murmurs,clicks, gallops or rubs. Abdomen Non-tender, non-distended, no masses, ascites/ Good bowel sounds noted in all quads. No guarding or rebound tenderness. No pulsatile masses. Back/Spine Non-tender to palpation. Extremities No visible deformities, no cyanosis, clubbing or edema. Musculoskeletal No tenderness or swelling, normal range of motion. Normal gait. Integumentary No rashes or lesions. Neurologic No sensory or motor deficits, normal cerebellar function, normal gait. Psychiatric Alert and oriented times three. Coherent speech. Verbalizes understanding of our discussions today. Laboratory:Test performed on Aug 12, 2020 14:00 Ferritin 69 ng/mL Folate, Serum > 20.0 ng/mL Iron 95 mcg/dL LDH (Total) 187 U/L Sodium 139 mmol/L TSH 1.07 uIU/mL Iron Binding Capacity (TIBC) 293 mcg/dl Potassium 4.1 mmol/L % Iron Saturation 32.4 % Chloride 104 mmol/L CO2 24 mmol/L UIBC 198 mcg/dL Anion Gap 15.1 BUN 13 mg/dL Creatinine 1.0 mg/dL Cr Clearance (Est) 45.5000 mL/min eGFR 55.3 mL/min Glucose 101 mg/dL Osmolality - Calculated 288 mOsm/kg Calcium 9.5 mg/dL Protein, Total 6.6 g/dL Albumin 4.4 g/dL Globulin 2.2 g/dL Bilirubin, Total 0.2 mg/dL ALT (SGPT) 13 U/L AST (SGOT) 13 U/L Alkaline Phosphatase 34 IU/L WBC 2.6 10 3/uL RBC 3.40 10 6/uL HGB 11.6 g/dL HCT 34.8 % MCV 102.4 fL MCH 34.1 pg MCHC 33.3 g/dL RDW 12.0 % Platelet Count 140 10 3/cmm MPV 9.3 fL Neutrophils 1.67 10 3/uL Lymphocytes 0.5 10 3/uL Monocytes 0.3 10 3/uL Eosinophils 0.1 10 3/uL Basophils 0.0 10 3/uL Neutrophil % 65.2 % Lymphocyte % 18.0 % Monocyte % 11.7 % Eosinophil % 2.7 % Basophils % 1.6 % NRBC % 0 % IgA < 50 mg/dL IgG 444 mg/dL IgM 28 mg/dL Test performed on Mar 18, 2020 15:55 Vitamin B12 337 pg/mL Impression: 1. Patient with diffuse large B-cell lymphoma, germinal center phenotype, presenting as rapidly enlarging abdominal mass. By clinical evaluation her disease was stage IIIB. It was high risk with NCCN-IPI score of 6. 2. She was treated with R-CHOP chemotherapy beginning in August 2017. She appeared to have complete response by follow-up PET/CT after 3 cycles. She had multiple treatment related toxicities, and her chemotherapy was stopped after the 4th cycle, which she received on 11/22/2018. 3. Repeat CT on 12/22/2017 showed evidence of residual left periaortic and central mesenteric soft tissue suggestive of residual lymphadenopathy. She initially declined further evaluation. Restaging PET/CT on 03/10/2018 showed abnormal activity in the retroperitoneum and mesenteric territories consistent with recurrent lymphoma. 4. With her PET/CT showing evidence of disease progression, she was referred to [facility]. She underwent salvage chemotherapy with 2 cycles of R-ICE in preparation for high-dose chemotherapy/stem cell transplant. However, her restaging PET/CT on 05/23/2018 showed disease progression. 5. She then underwent Car T therapy with pheresis of lymphocytes for Yescarta production on 06/14/2018, infusion of lymphodepleting chemotherapy 07/11 -07/13/2018, and Yescarta infusion on 07/16/2018. Her other medical illnesses include: 6. Hypertension. 7. GERD. 8. Chronic anxiety. She had developed pancytopenia and prolonged neutropenia following the Car T therapy, requiring growth factor support with Neupogen, but her neutrophil count did recover in the latter part of October. Her restaging PET/CT on 12/01/2018 showed sustained complete response to the Car T therapy. At her follow-up visit at [facility] in December 2018 she was found to have hypogammaglobulinemia. This was presumed to be secondary to the Car T therapy. She was given replacement IVIG monthly for 6 cycles, which she completed last month. Her restaging PET/CT at [facility] on 05/27/2019 showed continued complete response. She had gradual recovery following the Car T therapy. Her main problem has been persistent double vision. She was recommended to have additional evaluation including nerve conduction studies and MRI, which she has thus far declined. A 3-month interval restaging PET/CT was also recommended, but that study was denied by her insurance. At her follow-up visit at [facility] in November 2019 there was no evidence of recurrence of the lymphoma, but she still had significant hypogammaglobulinemia, and she was recommended to continue monthly replacement IVIG for an additional 6 months. She has been tolerating this well. Overall, she appears to be doing very well clinically. She completed her second 6-month dosing of IVIG in March 2020. Plan: 1. In anticipation of her visit for fatigue, I had requested a CBC CMP type and ask her if no globulin levels iron studies as she has been iron deficient in the past, TSH and LDH. It was noted on her CBC that her MCV is 102.4 and MCHC is 34. I did request a vitamin B12 MMA and homocystine be added to the blood lab if possible. I did also add a vitamin D level for myalgia and weakness. 2. Her hemoglobin is 11.6, platelets 148,000 ANC is 1700, creatinine 1.0 random glucose 101 LFTs were normal her IgA remains low at 50 IgG is 444, and IgM was 28. Her iron saturation is 32.4% ferritin 69 TSH was normal at 1.07 and her LDH was normal at 187. 3. She is due for follow-up PET/CT imaging with [facility] within the next 4 to 6 weeks and she states she is comfortable waiting for this that she has no specific complaints. 4. We discussed at length the possibility of adding cancer rehab to see if this will help her energy and build up some stamina for her. She states this has helped her in the past and she is willing to pursue this if her insurance will help cover it. A referral was made to cancer rehab here at [facility]. 5. She is current on her bilateral digital screening mammogram. This was last performed on June 04, 2020 with BI-RADS 2???benign follow-up in 1 year. Signed By: Kristie Casillas-, [facility] Nghia Fontanez MD <<Signature on File>>
== END 2020-08-12 13:48 | disposition home or self-care (01) ==
LOC: ONCMED 13:49
PROVIDERS: PCP Family Medicine; Visit Provider Nurse Practitioner
DX: C83.33 Diffuse large B-cell lymphoma, intra-abdominal lymph nodes (principal); D80.1 Nonfamilial hypogammaglobulinemia; D64.9 Anemia, unspecified; R53.83 Other fatigue; R53.1 Weakness; M79.10 Myalgia, unspecified site; I10 Essential (primary) hypertension; K21.9 Gastro-esophageal reflux disease without esophagitis; F41.9 Anxiety disorder, unspecified; Z86.39 Personal history of other endocrine, nutritional and metabolic disease; Z87.891 Personal history of nicotine dependence
CPT/HCPCS: 36415; 80053; 82728; 82746; 82784; 83540; 83550; 83615; 84443; 85025; 99214

== ENCOUNTER 2020-08-18 06:00 | Outpatient (RCR) | payer MEDICARE, OTHER, SELFPAY | END 2020-08-26 23:59 | disposition home or self-care (01) | LOC: SPT 06:00 | PROVIDERS: PCP Family Medicine; Referring Provider Nurse Practitioner; Visit Provider Nurse Practitioner | DX: C85.90 Non-Hodgkin lymphoma, unspecified, unspecified site (principal) | CPT/HCPCS: 97110; 97161 ==

== ENCOUNTER 2020-08-27 06:00 | Outpatient (RCR) | payer MEDICARE, OTHER, SELFPAY | END 2020-09-26 23:59 | disposition home or self-care (01) | LOC: SPT 06:00 | PROVIDERS: PCP Family Medicine; Referring Provider Nurse Practitioner; Visit Provider Nurse Practitioner | DX: C85.90 Non-Hodgkin lymphoma, unspecified, unspecified site (principal) | CPT/HCPCS: 97110 ==

== ENCOUNTER 2020-09-27 06:00 | Outpatient (RCR) | payer MEDICARE, OTHER, SELFPAY | END 2020-10-20 23:00 | disposition home or self-care (01) | LOC: SPT 06:00 | PROVIDERS: PCP Family Medicine; Referring Provider Nurse Practitioner; Visit Provider Nurse Practitioner | DX: Z51.89 Encounter for other specified aftercare (principal); C85.90 Non-Hodgkin lymphoma, unspecified, unspecified site | CPT/HCPCS: 97110 ==

== ENCOUNTER → 2020-10-13 12:46 | Outpatient (BNVA) | payer MEDICARE, OTHER, SELFPAY | PROVIDERS: PCP Family Medicine; Visit Provider Family Medicine | DX: Z20.828 Contact with and (suspected) exposure to other viral communicable diseases (principal) | CPT/HCPCS: 87635 ==

== ENCOUNTER 2021-01-26 14:27 | Outpatient (CLI) | payer MEDICARE, OTHER, SELFPAY ==
--- NOTE | 2021-01-26 14:38 | CT_ITS ---
WS: [id number] CT HEAD NONCONTRAST AND CONTRAST TECHNIQUE: Noncontrast and contrast-enhanced CT of the head. CLINICAL INFORMATION: HEADACHE ATYPICAL, VERTIGO COMPARISON: CT October 2018 DLP: 1984.[address] scans at [facility] use at least one of these dose optimization techniques: automat ed exposure control; mA and/or kV adjustment per patient size (includes targeted exams where dose is matched to clinical indication); or iterative reconstruction. FINDINGS: No evidence of intracranial hemorrhage or mass effect. Ventricular system and basal cisterns are kelly nt. Mild small vessel changes. Moderate parenchymal volume loss. Mastoid air cells are well aerated. Paranasal sinuses are well aerated. No abnormal intracranial enhancement. Intracranial vascular calcification. No other significant findings. CT/CT head wo/w con [id number] IMPRESSION: 1. No evidence of intracranial hemorrhage or mass effect. 2. Mild small vessel changes with moderate parenchymal volume loss. 3. No abnormal intracranial enhancement. 4. No acute intracranial findings.
[2021-01-26 15:09] LABS: Blood Urea Nitrogen 12 mg/dL (8-23); Glomerular Filtration Rate 62.3 mL/min (90-130)
[2021-01-26] MEDS: iohexol 300 mg/mL 100 mL Btl IV (15:23)
== END 2021-01-26 14:28 | disposition home or self-care (01) ==
LOC: RADWPI 14:31
PROVIDERS: PCP Family Medicine; Visit Provider Family Medicine
DX: R51.9 Headache, unspecified (principal); R42 Dizziness and giddiness
CPT/HCPCS: 70470; 82565; 84520; Q9967

== ENCOUNTER 2021-05-25 13:22 | Outpatient (CLI) | payer MEDICARE, OTHER, SELFPAY ==
[2021-05-25 14:40] LABS: Basophils % 1.3 %; Eosinophils # 0.1 10^3/uL (0.0-0.8); Eosinophils % 3.5 %; Hematocrit 35.7 % (37.0-47.0); Hemoglobin 11.9 g/dL (11.5-15.3); Lymphocytes # 0.5 10^3/uL (0.8-4.8); Lymphocytes % 21.6 %; Mean Corpuscular HGB Conc 33.3 g/dL (30.0-36.0); Mean Corpuscular Hemoglobin 33.4 pg (28.0-34.0); Mean Corpuscular Volume 100.3 fL (81-99); Mean Platelet Volume 9.8 fL (7.4-10.4); Monocytes # 0.4 10^3/uL (0.2-0.9); Monocytes % 15.6 %; Neutrophils # 1.33 10^3/uL (1.8-7.7); Neutrophils % 57.6 %; Nucleated Red Blood Cells % 0 %; Platelet Count 129 10^3/cmm (130-400); Red Blood Count 3.56 10^6/uL (4.1-5.3); Red Cell Distribution Width 11.7 % (12.1-15.1); White Blood Count 2.3 10^3/uL (4.0-10.0)
[2021-05-25 15:21] LABS: Alanine Aminotransferase 11 U/L (0-33); Albumin Level 4.4 g/dL (3.5-5.2); Alkaline Phosphatase 35 IU/L (35-105); Anion Gap 17.2 (5-19); Aspartate Amino Transferase 18 U/L (0-32); Blood Urea Nitrogen 10 mg/dL (8-23); Calcium 9.3 mg/dL (8.5-10.5); Carbon Dioxide 24 mmol/L (22-29); Chloride 103 mmol/L (98-107); Globulin 1.8 g/dL (1.3-4.6); Glomerular Filtration Rate 71.3 mL/min (90-130); Glucose 86 mg/dL (65-115); Lactate Dehydrogenase 206 U/L (135-214); Osmolality Calculated 288 mOsm/kg (285-295); Potassium 4.2 mmol/L (3.5-5.1); Sodium 140 mmol/L (136-145); Thyroid Stimulating Hormone 0.93 uIU/mL (0.27-4.20); Total Bilirubin 0.2 mg/dL (0.15-1.2); Total Protein 6.2 g/dL (6.6-8.7)
[2021-05-25 15:28] LABS: Erythrocyte Sedimentation Rate 26 mm/hr (0-15)
--- NOTE | 2021-05-28 14:26 | ONC FU_ITS ---
Dr. Fontanez Patient Follow-Up Note Patient: Kaylah Arce Unit #: [id number]: 1950 Dicatated By: Nghia Fontanez M.D.Date of Visit:May 25, 2021 Onc Med Follow-up/Prog Note Chief Complaint: Non-Hodgkin's lymphoma. History of Present Illness: This is a 70 year-old woman with relapsed diffuse large B-cell lymphoma. In May 2017 she had presented to the emergency room with complaints of feeling nauseated and sick. She thought she was having a reaction to medication. She was found to be significantly hypokalemic. A contrast-enhanced CT of the abdomen/pelvis showed moderate colonic fecal debris and prominent abdominal aortic vessel calcifications. There were no other acute findings. Her symptoms continued to worsen, and she eventually became aware of a knot in her abdomen, which she thought was a hernia. She was then seen by Dr. Haro, and a repeat CT of the abdomen on 08/18/2017 showed interval development of extensive retroperitoneal and periaortic lymphadenopathy, felt to be most consistent with lymphoma. The largest lymph node measured in the range of 3-[address] directed core needle biopsy of the abdominal mass on 08/28/2017. The final pathology report indicated diffuse large B-cell lymphoma, germinal center phenotype. The tumor cells were positive for CD20, CD10, BCL 6, MUM1, and BCL-2. They were negative for CD3, CD5, cyclin D1, and FANG. The Ki-67 was estimated at 60-80%. Bone marrow aspiration/biopsy on 09/08/2017 showed no obvious involvement with lymphoma. Staging PET/CT on 09/09/2017 showed bulky retroperitoneal adenopathy and matted mesenteric adenopathy with greatest axial dimension of 9.3 cm, SUV 30.2. Also noted was a 1.1 cm mediastinal lymph node with SUV 11.9, a 1.2 cm slightly higher posterior mediastinal lymph node with SUV 11.4, and a 1.2 cm retrocrural node with SUV 14.6. She began a course of treatment R-CHOP chemotherapy, cycle 1 beginning on 09/14/2017. She did receive first cycle prophylaxis with Neulasta. She was severely neutropenic at day 8 with absolute neutrophil count 100. She recovered uneventfully, and she was able to proceed with cycle 2 on 10/05/2017. She was seen for a scheduled visit on 10/26/2017. Her blood counts at that point were adequate, but her treatment was delayed one week due to poor performance status. At that point she did start on prednisone 20 mg daily. She had restaging PET/CT on 10/28/2017. It showed significant response to chemotherapy with only retroperitoneal lymph nodes remaining as represented by 1.5 cm left sided infrarenal node with SUV 2.9 compared to 4.1 cm with SUV 22.8 on the pretreatment study. She continued with cycle 3 of R-CHOP on 11/01/2017 and was cycle 4 on 01/23/2017. Following cycle 4, she had significant worsening of fatigue, nausea/vomiting, and anorexia, requiring admission to the hospital on 11/29/2017. She was severely neutropenic, ANC 100. She was not febrile at that time. She was started on prophylactic antibiotic therapy, and by 12/03/2017 her white count was back up to 7700. She was still moderately anemic, which she was feeling better and she was then discharged home. On 12/06/2017 she was readmitted to the hospital with persistent nausea, severe fatigue, and low-grade fever. Her white cell count was elevated at 10,900. Her urine culture grew Escherichia coli, ESBL. Her blood cultures were negative. She was discharged on 12/08/2017. Her fever persisted, and her port was subsequently removed as an outpatient. I had seen her for a follow-up visit on 12/20/2017. At that point she was still very weak. She had significant nausea/anorexia. I opted to stop her chemotherapy, as I did not feel she would be able to tolerate further treatment. She did agree to try Compazine in combination with Marinol for the nausea/anorexia. She had restaging CT of the chest, abdomen, and pelvis on 12/22/2017. There was no evidence of lymphadenopathy in the chest. There were multiple indeterminate pulmonary nodules, all less than 5 mm, felt to most likely represent benign lesions. There was markedly improved mesenteric and retroperitoneal lymphadenopathy, but with residual left periaortic and central mesenteric soft tissue measuring 1.7 x 1.8 cm and 1.3 x 3.1 cm respectively. At that time she declined any further evaluation. A repeat PET/CT on 03/10/2018 showed abnormal activity in the retroperitoneum and mesenteric territories consistent with recurrent lymphoma. Hypermetabolic lymph nodes were noted in the retrocaval, left periaortic, and mesenteric territories. An index left periaortic lymph node measured 2.3 cm at SUV 22.0. At that point she did agree to referral to [facility]. She then underwent salvage chemotherapy with R-ICE in preparation for high-dose chemotherapy/stem cell transplant. She began cycle 1 on 04/11/2018. She required hospital admission on 04/15/2018 for nausea/vomiting. She then became severely neutropenic, but she recovered uneventfully. She continued with cycle 2 on 05/02/2018. Repeat PET/CT on 05/23/2018 showed progressive disease. In May she began the process of Car T therapy with pheresis of lymphocytes on 06/14/2018. She then underwent lymphodepleting chemotherapy 07/11- 07/13/2018 and she received Yescarta infusion on 07/16/2018. She had evidence of complete remission on her day 64 PET/CT. Her treatment was complicated by pancytopenia and persistent neutropenia, requiring growth factor support with Neupogen. She did show significant recovery of her neutrophil count in the latter part of October. Her restaging PET/CT on 12/01/2018 continued to show FDG negative retroperitoneal and mesenteric lymph nodes and no findings to indicate active lymphoma. At her follow-up visit at [facility] on 12/31/2018 she had complained of double vision, and arrangements were made for neurology referral to evaluate for myasthenia gravis. Her blood counts were adequate. However, she was found to have hypogammaglobulinemia with her IgG level low at 341 mg/dL, and she was recommended to receive replacement IVIG monthly for 6 months. She received the initial infusion on 01/14/2019. She tolerated it well, and she then continued the IVIG infusions monthly. She completed her 6th infusion on 06/03/2019. She had a follow-up visit at [facility] on 05/27/2019. Her PET/CT at that time showed continued complete response. She continued on observation/expectant management. She was recommended to have one more PET/CT at a 3-month follow-up interval, but that was denied by her insurance. At her follow-up visit at [facility] in November 2019 they found no evidence of recurrence of her lymphoma. She still had significant hypogammaglobulinemia, and it was recommended that she continue replacement IVIG for another 6 months. She completed that treatment in March 2020. Her other medical illnesses include hypertension and GERD. She has history of smoking 1 pack of cigarettes daily for 25 years. She quit smoking in 2013. INTERIM HISTORY: As of her follow-up visit at [facility] on 02/03/2021 there was no evidence of recurrence of lymphoma, and it was recommended that she continue expectant management. She is seen for a scheduled visit. She has been feeling pretty good generally. Her energy has been getting better gradually, but her activity tolerance is still limited, as she tends to get tired and does not have good stamina. Her ECOG score is 1. She has good appetite. She has no fever or night sweats. She continues to have some double vision, which she describes as an up-and-down rather than [id number] phenomenon. She complains that her nose runs a lot and she sometimes has sore throat. She also has some associated cough. She does not complain of shortness of breath or chest pain. She still has nausea occasionally and she has occasional acid reflux. She also still has some constipation. Bladder function remains adequate, though she sometimes has hesitancy with urination. She has a little bit of joint pain. She has a pounding headache a lot of the time. She manages it with Excedrin. She also has had dizziness, but that has improved significantly with physical therapy. She has numbness/tingling in her feet and toes and she also has some numbness in the ulnar distribution of the left hand. Medications: ALPRAZolam 1 Tablet (of 1 mg) Oral at bedtime PRN, B-12 1 Tablet (of 500 mcg) Oral daily, C 1000 1 Tablet (of 1000 mg) Oral daily, Excedrin Extra Strength 2 Tablet (of 250-250-65 mg) Oral daily Allergies: BACTRIM and Metoprolol Tartrate. Vital Signs: Performed on May 25, 2021 14:23 Height - 65.50 in Weight - 117.6 lbs (HIGH) BSA - 1.59 sq.m BMI - 19.27 Temperature - 97.2 F (LOW) Pulse - 86 /min Respiration - 18 /min BP - 131/84 mm(hg) O2 Sat - 98 % Pain - 2 Fatigue - 3 Physical Examination: Constitutional - She looks pretty good generally, Eyes - Sclerae nonicteric. Conjunctivae clear, ENMT - No lesions noted in the oral cavity, Hematologic/Lymphatic - No cervical, clavicular, or axillary adenopathy, Respiratory - Lungs are clear with good air movement bilaterally, Cardiovascular - Heart rhythm is regular. There is no murmur, gallop, or rub noted, Abdomen - Soft. Liver and spleen are not enlarged. There is no abdominal mass or ascites noted. There is no inguinal adenopathy, Extremities - No edema, Neurologic - No focal neurologic deficits noted. Lab/Imaging: Test performed on May 25, 2021 14:25 LDH (Total) 206 U/L Sodium 140 mmol/L TSH 0.93 uIU/mL Potassium 4.2 mmol/L Chloride 103 mmol/L CO2 24 mmol/L Anion Gap 17.2 BUN 10 mg/dL Creatinine 0.8 mg/dL Cr Clearance (Est) 56.6800 mL/min eGFR 71.3 mL/min Glucose 86 mg/dL Osmolality - Calculated 288 mOsm/kg Calcium 9.3 mg/dL Protein, Total 6.2 g/dL Albumin 4.4 g/dL Globulin 1.8 g/dL Bilirubin, Total 0.2 mg/dL ALT (SGPT) 11 U/L AST (SGOT) 18 U/L Alkaline Phosphatase 35 IU/L ESR (Sed Rate) 26 mm/hr WBC 2.3 10 3/uL RBC 3.56 10 6/uL HGB 11.9 g/dL HCT 35.7 % MCV 100.3 fL MCH 33.4 pg MCHC 33.3 g/dL RDW 11.7 % Platelet Count 129 10 3/cmm MPV 9.8 fL Neutrophils 1.33 10 3/uL Lymphocytes 0.5 10 3/uL Monocytes 0.4 10 3/uL Eosinophils 0.1 10 3/uL Basophils 0.0 10 3/uL Neutrophil % 57.6 % Lymphocyte % 21.6 % Monocyte % 15.6 % Eosinophil % 3.5 % Basophils % 1.3 % NRBC % 0 % Problem List: 1. Diffuse large B-cell lymphoma, germinal center phenotype, presenting as rapidly enlarging abdominal mass. By clinical evaluation her disease was stage IIIB at initial diagnosis in August 2017. Her disease was high risk with NCCN-IPI score of 6. 2. She developed treatment related hypogammaglobulinemia, requiring replacement therapy. 3. Hypertension. 4. GERD. 5. Chronic anxiety. Problems Addressed with this Encounter and Plan: 1. Patient with diffuse large B-cell lymphoma, germinal center phenotype, presenting as rapidly enlarging abdominal mass. By clinical evaluation her disease was stage IIIB. It was high risk with NCCN-IPI score of 6. She was treated with R-CHOP chemotherapy beginning in August 2017. She appeared to have complete response by follow-up PET/CT after 3 cycles. She had multiple treatment related toxicities, and her chemotherapy was stopped after the 4th cycle, which she received on 11/22/2018. Restaging PET/CT on 03/10/2018 showed abnormal activity in the retroperitoneum and mesenteric territories consistent with recurrent lymphoma. She was referred to [facility]. She underwent salvage chemotherapy with 2 cycles of R-ICE in preparation for high-dose chemotherapy/stem cell transplant. However, her restaging PET/CT on 05/23/2018 showed disease progression. She then underwent Car T therapy with pheresis of lymphocytes for Yescarta production on 06/14/2018, infusion of lymphodepleting chemotherapy 07/11 -07/13/2018, and Yescarta infusion on 07/16/2018. She had developed pancytopenia and prolonged neutropenia following the Car T therapy, requiring growth factor support with Neupogen, but her neutrophil count did recover in the latter part of October 2018. As of November 2019 her restaging PET/CT continued to show sustained complete response to the Car T therapy. During follow-up she has had ongoing complaints of fatigue, headache, and double vision, but she has had gradual improvement in her performance status. Overall, under the circumstances, she is doing very well clinically, thus far with no evidence for any further recurrence of her lymphoma. She continues on expectant management. We are not planning any further routine surveillance imaging. I will see her again in 3 months. 2. At her follow-up visit at [facility] in December 2018 she was found to have hypogammaglobulinemia. This was presumed to be secondary to the Car T therapy. She was given replacement IVIG monthly, which she eventually completed in March 2020. Signed By: Nghia Fontanez M.D. <<Signature on File>>
== END 2021-05-25 13:23 | disposition home or self-care (01) ==
PROVIDERS: PCP Family Medicine; Visit Provider Internal Medicine Medical Oncology
DX: Z08 Encounter for follow-up examination after completed treatment for malignant neoplasm (principal); Z85.72 Personal history of non-Hodgkin lymphomas; D80.1 Nonfamilial hypogammaglobulinemia; I10 Essential (primary) hypertension; K21.9 Gastro-esophageal reflux disease without esophagitis; F41.9 Anxiety disorder, unspecified; Z79.899 Other long term (current) drug therapy; Z92.21 Personal history of antineoplastic chemotherapy
CPT/HCPCS: 36415; 80053; 83615; 84443; 85025; 85651; G0463

== ENCOUNTER 2021-08-23 09:24 | Outpatient (CLI) | payer MEDICARE, OTHER, SELFPAY ==
[2021-08-23 10:50] LABS: Basophils % 1.7 %; Eosinophils # 0.1 10^3/uL (0.0-0.8); Eosinophils % 2.6 %; Hematocrit 35.5 % (37.0-47.0); Hemoglobin 11.9 g/dL (11.5-15.3); Lymphocytes # 0.4 10^3/uL (0.8-4.8); Lymphocytes % 15.9 %; Mean Corpuscular HGB Conc 33.5 g/dL (30.0-36.0); Mean Corpuscular Hemoglobin 34.6 pg (28.0-34.0); Mean Corpuscular Volume 103.2 fl (81-99); Mean Platelet Volume 9.7 fL (7.4-10.4); Monocytes # 0.4 10^3/uL (0.2-0.9); Monocytes % 15.1 %; Neutrophils # 1.46 10^3/uL (1.8-7.7); Nucleated Red Blood Cells % 0 %; Platelet Count 151 10^3/cmm (130-400); Red Blood Count 3.44 10^6/uL (4.1-5.3); Red Cell Distribution Width 11.9 % (12.1-15.1); White Blood Count 2.3 10^3/uL (4.0-10.0)
--- NOTE | 2021-08-23 10:52 | ONC FU_ITS ---
Dr. Fontanez Patient Follow-Up Note Patient: Kaylah Arce Unit #: [id number]: 1950 Dicatated By: Nghia Fontanez M.D.Date of Visit:Aug 23, 2021 Onc Med Follow-up/Prog Note Chief Complaint: Non-Hodgkin's lymphoma. History of Present Illness: This is a 70 year-old woman with relapsed diffuse large B-cell lymphoma. In May 2017 she had presented to the emergency room with complaints of feeling nauseated and sick. She thought she was having a reaction to medication. She was found to be significantly hypokalemic. A contrast-enhanced CT of the abdomen/pelvis showed moderate colonic fecal debris and prominent abdominal aortic vessel calcifications. There were no other acute findings. Her symptoms continued to worsen, and she eventually became aware of a knot in her abdomen, which she thought was a hernia. She was then seen by Dr. Haro, and a repeat CT of the abdomen on 08/18/2017 showed interval development of extensive retroperitoneal and periaortic lymphadenopathy, felt to be most consistent with lymphoma. The largest lymph node measured in the range of 3-[address] directed core needle biopsy of the abdominal mass on 08/28/2017. The final pathology report indicated diffuse large B-cell lymphoma, germinal center phenotype. The tumor cells were positive for CD20, CD10, BCL 6, MUM1, and BCL-2. They were negative for CD3, CD5, cyclin D1, and FANG. The Ki-67 was estimated at 60-80%. Bone marrow aspiration/biopsy on 09/08/2017 showed no obvious involvement with lymphoma. Staging PET/CT on 09/09/2017 showed bulky retroperitoneal adenopathy and matted mesenteric adenopathy with greatest axial dimension of 9.3 cm, SUV 30.2. Also noted was a 1.1 cm mediastinal lymph node with SUV 11.9, a 1.2 cm slightly higher posterior mediastinal lymph node with SUV 11.4, and a 1.2 cm retrocrural node with SUV 14.6. She began a course of treatment R-CHOP chemotherapy, cycle 1 beginning on 09/14/2017. She did receive first cycle prophylaxis with Neulasta. She was severely neutropenic at day 8 with absolute neutrophil count 100. She recovered uneventfully, and she was able to proceed with cycle 2 on 10/05/2017. She was seen for a scheduled visit on 10/26/2017. Her blood counts at that point were adequate, but her treatment was delayed one week due to poor performance status. At that point she did start on prednisone 20 mg daily. She had restaging PET/CT on 10/28/2017. It showed significant response to chemotherapy with only retroperitoneal lymph nodes remaining as represented by 1.5 cm left sided infrarenal node with SUV 2.9 compared to 4.1 cm with SUV 22.8 on the pretreatment study. She continued with cycle 3 of R-CHOP on 11/01/2017 and was cycle 4 on 01/23/2017. Following cycle 4, she had significant worsening of fatigue, nausea/vomiting, and anorexia, requiring admission to the hospital on 11/29/2017. She was severely neutropenic, ANC 100. She was not febrile at that time. She was started on prophylactic antibiotic therapy, and by 12/03/2017 her white count was back up to 7700. She was still moderately anemic, which she was feeling better and she was then discharged home. On 12/06/2017 she was readmitted to the hospital with persistent nausea, severe fatigue, and low-grade fever. Her white cell count was elevated at 10,900. Her urine culture grew Escherichia coli, ESBL. Her blood cultures were negative. She was discharged on 12/08/2017. Her fever persisted, and her port was subsequently removed as an outpatient. I had seen her for a follow-up visit on 12/20/2017. At that point she was still very weak. She had significant nausea/anorexia. I opted to stop her chemotherapy, as I did not feel she would be able to tolerate further treatment. She did agree to try Compazine in combination with Marinol for the nausea/anorexia. She had restaging CT of the chest, abdomen, and pelvis on 12/22/2017. There was no evidence of lymphadenopathy in the chest. There were multiple indeterminate pulmonary nodules, all less than 5 mm, felt to most likely represent benign lesions. There was markedly improved mesenteric and retroperitoneal lymphadenopathy, but with residual left periaortic and central mesenteric soft tissue measuring 1.7 x 1.8 cm and 1.3 x 3.1 cm respectively. At that time she declined any further evaluation. A repeat PET/CT on 03/10/2018 showed abnormal activity in the retroperitoneum and mesenteric territories consistent with recurrent lymphoma. Hypermetabolic lymph nodes were noted in the retrocaval, left periaortic, and mesenteric territories. An index left periaortic lymph node measured 2.3 cm at SUV 22.0. At that point she did agree to referral to [facility]. She then underwent salvage chemotherapy with R-ICE in preparation for high-dose chemotherapy/stem cell transplant. She began cycle 1 on 04/11/2018. She required hospital admission on 04/15/2018 for nausea/vomiting. She then became severely neutropenic, but she recovered uneventfully. She continued with cycle 2 on 05/02/2018. Repeat PET/CT on 05/23/2018 showed progressive disease. In May she began the process of Car T therapy with pheresis of lymphocytes on 06/14/2018. She then underwent lymphodepleting chemotherapy 07/11- 07/13/2018 and she received Yescarta infusion on 07/16/2018. She had evidence of complete remission on her day 64 PET/CT. Her treatment was complicated by pancytopenia and persistent neutropenia, requiring growth factor support with Neupogen. She did show significant recovery of her neutrophil count in the latter part of October. Her restaging PET/CT on 12/01/2018 continued to show FDG negative retroperitoneal and mesenteric lymph nodes and no findings to indicate active lymphoma. At her follow-up visit at [facility] on 12/31/2018 she had complained of double vision, and arrangements were made for neurology referral to evaluate for myasthenia gravis. Her blood counts were adequate. However, she was found to have hypogammaglobulinemia with her IgG level low at 341 mg/dL, and she was recommended to receive replacement IVIG monthly for 6 months. She received the initial infusion on 01/14/2019. She tolerated it well, and she then continued the IVIG infusions monthly. She completed her 6th infusion on 06/03/2019. She had a follow-up visit at [facility] on 05/27/2019. Her PET/CT at that time showed continued complete response. She continued on observation/expectant management. She was recommended to have one more PET/CT at a 3-month follow-up interval, but that was denied by her insurance. At her follow-up visit at [facility] in November 2019 they found no evidence of recurrence of her lymphoma. She still had significant hypogammaglobulinemia, and it was recommended that she continue replacement IVIG for another 6 months. She completed that treatment in March 2020. Her other medical illnesses include hypertension and GERD. She has history of smoking 1 pack of cigarettes daily for 25 years. She quit smoking in 2013. INTERIM HISTORY: As of her follow-up visit at [facility] on 02/03/2021 there was no evidence of recurrence of lymphoma, and it was recommended that she continue expectant management. She is seen for a scheduled visit. She says she is feeling a lot better now, she is continued to have gradual improvement in her energy/activity tolerance. She still has occasional periods where she does not feel good, but she is pretty much back to normal activity now. ECOG score is 0. Her appetite is very good. She does not have fever or night sweats. She still has some double vision. She says her nose runs all the time. She has not had sore mouth or throat. She does have some cough. She does not complain of shortness of breath or chest pain. She occasionally has nausea. She has some acid indigestion at times. She takes Prevacid as needed. Her bowels tend to move frequently when she eats a lot of fruit. She is otherwise prone to having constipation. She has had occasional episodes with symptoms of urinary tract infection, though with no associated findings on urinalysis. The symptoms, though, have improved with empiric antibiotic therapy. She has been having arthritis pain in her hands and other joints. Thus far she has just been taking Excedrin when she needs to. She says she has headaches all the time and she has some ongoing issues with balance/equilibrium. She has some residual numbness in her toes and fingertips. She still has some anxiety, that is also much better now. Medications: ALPRAZolam 1 Tablet (of 1 mg) Oral at bedtime PRN, B-12 1 Tablet (of 500 mcg) Oral daily, C 1000 1 Tablet (of 1000 mg) Oral daily, Excedrin Extra Strength 2 Tablet (of 250-250-65 mg) Oral daily Allergies: BACTRIM and Metoprolol Tartrate. Vital Signs: Performed on Aug 23, 2021 10:27 Height - 65.50 in Weight - 119 lbs (HIGH) BSA - 1.60 sq.m BMI - 19.50 Temperature - 96.6 F (LOW) Pulse - 64 /min Respiration - 18 /min BP - 132/80 mm(hg) O2 Sat - 98 % Pain - 6 Fatigue - 5 Physical Examination: Constitutional - She looks good generally, Eyes - Sclerae nonicteric. Conjunctivae clear, ENMT - No lesions noted in the oral cavity, Hematologic/Lymphatic - No cervical, clavicular, or axillary adenopathy, Respiratory - Lungs are clear with good air movement bilaterally, Cardiovascular - Heart rhythm is regular. There is no murmur, gallop, or rub noted, Abdomen - Soft. Liver and spleen are not enlarged. There is no abdominal mass or ascites noted. There is no inguinal adenopathy, Extremities - No edema, Neurologic - No focal neurologic deficits noted. Problem List: 1. Diffuse large B-cell lymphoma, germinal center phenotype, presenting as rapidly enlarging abdominal mass. By clinical evaluation her disease was stage IIIB at initial diagnosis in August 2017. Her disease was high risk with NCCN-IPI score of 6. 2. She developed treatment related hypogammaglobulinemia, requiring replacement therapy. 3. Hypertension. 4. GERD. 5. Chronic anxiety. Problems Addressed with this Encounter and Plan: 1. Patient with diffuse large B-cell lymphoma, germinal center phenotype, presenting as rapidly enlarging abdominal mass. By clinical evaluation her disease was stage IIIB. It was high risk with NCCN-IPI score of 6. She was treated with R-CHOP chemotherapy beginning in August 2017. She appeared to have complete response by follow-up PET/CT after 3 cycles. She had multiple treatment related toxicities, and her chemotherapy was stopped after the 4th cycle, which she received on 11/22/2018. Restaging PET/CT on 03/10/2018 showed abnormal activity in the retroperitoneum and mesenteric territories consistent with recurrent lymphoma. She was referred to [facility]. She underwent salvage chemotherapy with 2 cycles of R-ICE in preparation for high-dose chemotherapy/stem cell transplant. However, her restaging PET/CT on 05/23/2018 showed disease progression. She then underwent Car T therapy with pheresis of lymphocytes for Yescarta production on 06/14/2018, infusion of lymphodepleting chemotherapy 07/11 -07/13/2018, and Yescarta infusion on 07/16/2018. She had developed pancytopenia and prolonged neutropenia following the Car T therapy, requiring growth factor support with Neupogen, but her neutrophil count did recover in the latter part of October 2018. As of November 2019 her restaging PET/CT continued to show sustained complete response to the Car T therapy. During follow-up she has had ongoing complaints of fatigue, headache, and double vision. She also has reported having significant joint pain. However, she has continued to show gradual improvement and at this point she is feeling a lot better. Thus far there has been no evidence for any further recurrence of her lymphoma. In the absence of any significant changes in her lab studies, I will just plan to see her again in 6 months. She will be due for follow-up at [facility] in October or November. 2. At her follow-up visit at [facility] in December 2018 she was found to have hypogammaglobulinemia. This was presumed to be secondary to the Car T therapy. She was given replacement IVIG monthly, which she eventually completed in March 2020. Signed By: Nghia Fontanez M.D. <<Signature on File>>
[2021-08-23 11:26] LABS: Alanine Aminotransferase 11 U/L (0-33); Albumin Level 4.1 g/dL (3.5-5.2); Alkaline Phosphatase 32 IU/L (35-105); Aspartate Amino Transferase 16 U/L (0-32); Blood Urea Nitrogen 10 mg/dL (8-23); Calcium 8.9 mg/dL (8.5-10.5); Carbon Dioxide 25 mmol/L (22-29); Chloride 103 mmol/L (98-107); Globulin 1.9 g/dL (1.3-4.6); Glomerular Filtration Rate 71.3 mL/min (90-130); Glucose 82 mg/dL (65-115); Lactate Dehydrogenase 186 U/L (135-214); Osmolality Calculated 284 mOsm/kg (285-295); Sodium 138 mmol/L (136-145); Thyroid Stimulating Hormone 1.65 uIU/mL (0.27-4.20); Total Bilirubin 0.2 mg/dL (0.15-1.2)
== END 2021-08-23 09:25 | disposition home or self-care (01) ==
LOC: ONCMED 09:28
PROVIDERS: PCP Family Medicine; Visit Provider Internal Medicine Medical Oncology
DX: C83.39 Diffuse large B-cell lymphoma, extranodal and solid organ sites (principal); D80.1 Nonfamilial hypogammaglobulinemia; I10 Essential (primary) hypertension; K21.9 Gastro-esophageal reflux disease without esophagitis; F41.8 Other specified anxiety disorders; Z79.899 Other long term (current) drug therapy
CPT/HCPCS: 36415; 80053; 83615; 84443; 85025; 99214

== ENCOUNTER → 2021-10-01 10:45 | Outpatient (BNVA) | payer MEDICARE, OTHER, SELFPAY | PROVIDERS: PCP Family Medicine; Visit Provider Obstetrics & Gynecology | DX: R30.0 Dysuria (principal) | CPT/HCPCS: 81000; 87086 ==

== ENCOUNTER → 2021-12-10 09:40 | Outpatient (BNVA) | payer MEDICARE, OTHER, SELFPAY | PROVIDERS: PCP Family Medicine; Visit Provider Obstetrics & Gynecology | DX: R39.15 Urgency of urination (principal) | CPT/HCPCS: 81000; 87077; 87086; 87184 ==

== ENCOUNTER → 2022-01-13 10:07 | Outpatient (BNVA) | payer MEDICARE, OTHER, SELFPAY | PROVIDERS: PCP Family Medicine; Visit Provider Obstetrics & Gynecology | DX: N39.0 Urinary tract infection, site not specified (principal) | CPT/HCPCS: 81000; 87086 ==

== ENCOUNTER → 2022-02-02 18:32 | Outpatient (BNVA) | payer MEDICARE, OTHER, SELFPAY | PROVIDERS: PCP Family Medicine; Visit Provider Nurse Practitioner Family | DX: N39.0 Urinary tract infection, site not specified (principal) | CPT/HCPCS: 81000 ==

== ENCOUNTER → 2022-02-08 09:59 | Outpatient (BNVA) | payer MEDICARE, OTHER, SELFPAY | PROVIDERS: PCP Family Medicine; Visit Provider Obstetrics & Gynecology | DX: R39.9 Unspecified symptoms and signs involving the genitourinary system (principal) | CPT/HCPCS: 81000; 87086 ==

== ENCOUNTER 2022-02-18 10:51 | Outpatient (CLI) | payer MEDICARE, OTHER, SELFPAY ==
[2022-02-18 11:25] LABS: Basophils % 1.1 %; Eosinophils # 0.1 10^3/uL (0.0-0.8); Eosinophils % 2.6 %; Hematocrit 36.7 % (37.0-47.0); Hemoglobin 12.3 g/dL (11.5-15.3); Lymphocytes # 0.5 10^3/uL (0.8-4.8); Lymphocytes % 18.8 %; Mean Corpuscular HGB Conc 33.5 g/dL (30.0-36.0); Mean Corpuscular Hemoglobin 34.1 pg (28.0-34.0); Mean Corpuscular Volume 101.7 fl (81-99); Mean Platelet Volume 9.3 fL (7.4-10.4); Monocytes # 0.4 10^3/uL (0.2-0.9); Neutrophils # 1.67 10^3/uL (1.8-7.7); Neutrophils % 61.3 %; Nucleated Red Blood Cells % 0 %; Platelet Count 155 10^3/cmm (130-400); Red Blood Count 3.61 10^6/uL (4.1-5.3); Red Cell Distribution Width 11.9 % (12.1-15.1); White Blood Count 2.7 10^3/uL (4.0-10.0)
[2022-02-18 11:47] LABS: Alanine Aminotransferase 10 U/L (0-33); Albumin Level 4.4 g/dL (3.5-5.2); Alkaline Phosphatase 31 IU/L (35-105); Anion Gap 15.1 (5-19); Aspartate Amino Transferase 15 U/L (0-32); Blood Urea Nitrogen 10 mg/dL (8-23); Carbon Dioxide 23 mmol/L (22-29); Chloride 100 mmol/L (98-107); Globulin 2.5 g/dL (1.3-4.6); Glomerular Filtration Rate 71.1 mL/min (90-130); Glucose 90 mg/dL (65-115); Lactate Dehydrogenase 191 U/L (135-214); Osmolality Calculated 277 mOsm/kg (285-295); Potassium 4.1 mmol/L (3.5-5.1); Sodium 134 mmol/L (136-145); Total Bilirubin 0.2 mg/dL (0.15-1.2); Total Protein 6.9 g/dL (6.6-8.7)
== END 2022-02-18 10:52 | disposition home or self-care (01) ==
PROVIDERS: PCP Family Medicine; Visit Provider Internal Medicine Medical Oncology
DX: C83.33 Diffuse large B-cell lymphoma, intra-abdominal lymph nodes (principal); D80.1 Nonfamilial hypogammaglobulinemia; I10 Essential (primary) hypertension; K21.9 Gastro-esophageal reflux disease without esophagitis; F41.9 Anxiety disorder, unspecified; Z79.899 Other long term (current) drug therapy; Z87.891 Personal history of nicotine dependence
CPT/HCPCS: 36415; 80053; 83615; 85025

== ENCOUNTER 2022-02-21 13:49 | Outpatient (CLI) | payer MEDICARE, OTHER, SELFPAY ==
--- NOTE | 2022-02-22 06:54 | ONC FU_ITS ---
Dr. Fontanez Patient Follow-Up Note Patient: Kaylah Arce Unit #: [id number]: 1950 Dicatated By: Nghia Fontanez M.D.Date of Visit:Feb 21, 2022 Onc Med Follow-up/Prog Note Chief Complaint: Non-Hodgkin's lymphoma. History of Present Illness: This is a 71 year-old woman with relapsed diffuse large B-cell lymphoma. In May 2017 she had presented to the emergency room with complaints of feeling nauseated and sick. She thought she was having a reaction to medication. She was found to be significantly hypokalemic. A contrast-enhanced CT of the abdomen/pelvis showed moderate colonic fecal debris and prominent abdominal aortic vessel calcifications. There were no other acute findings. Her symptoms continued to worsen, and she eventually became aware of a knot in her abdomen, which she thought was a hernia. She was then seen by Dr. Haro, and a repeat CT of the abdomen on 08/18/2017 showed interval development of extensive retroperitoneal and periaortic lymphadenopathy, felt to be most consistent with lymphoma. The largest lymph node measured in the range of 3-[address] directed core needle biopsy of the abdominal mass on 08/28/2017. The final pathology report indicated diffuse large B-cell lymphoma, germinal center phenotype. The tumor cells were positive for CD20, CD10, BCL 6, MUM1, and BCL-2. They were negative for CD3, CD5, cyclin D1, and FANG. The Ki-67 was estimated at 60-80%. Bone marrow aspiration/biopsy on 09/08/2017 showed no obvious involvement with lymphoma. Staging PET/CT on 09/09/2017 showed bulky retroperitoneal adenopathy and matted mesenteric adenopathy with greatest axial dimension of 9.3 cm, SUV 30.2. Also noted was a 1.1 cm mediastinal lymph node with SUV 11.9, a 1.2 cm slightly higher posterior mediastinal lymph node with SUV 11.4, and a 1.2 cm retrocrural node with SUV 14.6. She began a course of treatment R-CHOP chemotherapy, cycle 1 beginning on 09/14/2017, administered with Neulasta. She was severely neutropenic at day 8 with absolute neutrophil count 100. She recovered uneventfully, and she was able to proceed with cycle 2 on 10/05/2017. She was seen for a scheduled visit on 10/26/2017. Her further treatment was delayed due to poor performance status. Restaging PET/CT on 10/28/2017 showed significant response to chemotherapy with only small retroperitoneal lymph nodes remaining as represented by 1.5 cm left sided infrarenal node with SUV 2.9 compared to 4.1 cm with SUV 22.8 on the pretreatment study. She continued with cycle 3 of R-CHOP on 11/01/2017 and was cycle 4 on 01/23/2017. Following cycle 4, she had significant worsening of fatigue, nausea/vomiting, and anorexia, requiring admission to the hospital on 11/29/2017. She was severely neutropenic, ANC 100. She was not febrile at that time. She was started on prophylactic antibiotic therapy, and by 12/03/2017 her white count was back up to 7700. She was still moderately anemic, which she was feeling better and she was then discharged home. On 12/06/2017 she was readmitted to the hospital with persistent nausea, severe fatigue, and low-grade fever. Her white cell count was elevated at 10,900. Her urine culture grew Escherichia coli, ESBL. Her blood cultures were negative. She was discharged on 12/08/2017. Her fever persisted, and her port was subsequently removed as an outpatient. I had seen her for a follow-up visit on 12/20/2017. At that point she was still very weak. She had significant nausea/anorexia. I opted to stop her chemotherapy, as I did not feel she would be able to tolerate further treatment. She did agree to try Compazine in combination with Marinol for the nausea/anorexia. Restaging CT of the chest, abdomen, and pelvis on 12/22/2017 showed no evidence of lymphadenopathy in the chest. There were multiple indeterminate pulmonary nodules, all less than 5 mm, felt to most likely represent benign lesions. There was markedly improved mesenteric and retroperitoneal lymphadenopathy, but with residual left periaortic and central mesenteric soft tissue measuring 1.7 x 1.8 cm and 1.3 x 3.1 cm respectively. At that time she declined any further evaluation. A repeat PET/CT on 03/10/2018 showed abnormal activity in the retroperitoneum and mesenteric territories consistent with recurrent lymphoma. Hypermetabolic lymph nodes were noted in the retrocaval, left periaortic, and mesenteric territories. An index left periaortic lymph node measured 2.3 cm at SUV 22.0. At that point she did agree to referral to [facility]. She then underwent salvage chemotherapy with R-ICE in preparation for high-dose chemotherapy/stem cell transplant. She began cycle 1 on 04/11/2018. She required hospital admission on 04/15/2018 for nausea/vomiting. She then became severely neutropenic, but she recovered uneventfully. She continued with cycle 2 on 05/02/2018. Repeat PET/CT on 05/23/2018 showed progressive disease. In May 2018 she began the process of Car-T therapy with pheresis of lymphocytes on 06/14/2018. She then underwent lymphodepleting chemotherapy 07/11- 07/13/2018 and she received Yescarta infusion on 07/16/2018. She had evidence of complete remission on her day 64 PET/CT. Her treatment was complicated by pancytopenia and persistent neutropenia, requiring growth factor support with Neupogen. She did show significant recovery of her neutrophil count in the latter part of October 2018. Her restaging PET/CT on 12/01/2018 continued to show FDG negative retroperitoneal and mesenteric lymph nodes and no findings to indicate active lymphoma. At her follow-up visit at [facility] on 12/31/2018 she had complained of double vision, and arrangements were made for neurology referral to evaluate for myasthenia gravis. Her blood counts were adequate. However, she was found to have hypogammaglobulinemia with her IgG level low at 341 mg/dL, and she was recommended to receive replacement IVIG monthly for 6 months. She received the initial infusion on 01/14/2019. She tolerated it well, and she then continued the IVIG infusions monthly. She completed her 6th infusion on 06/03/2019. She had a follow-up visit at [facility] on 05/27/2019. Her PET/CT at that time showed continued complete response. She continued on observation/expectant management. She was recommended to have one more PET/CT at a 3-month follow-up interval, but that was denied by her insurance. At her follow-up visit at [facility] in November 2019 they found no evidence of recurrence of her lymphoma. She still had significant hypogammaglobulinemia, and it was recommended that she continue replacement IVIG for another 6 months. She completed that treatment in March 2020. Her other medical illnesses include hypertension and GERD. She has history of smoking 1 pack of cigarettes daily for 25 years. She quit smoking in 2013. INTERIM HISTORY: As of her follow-up visit at [facility] on 02/03/2021 there was no evidence of recurrence of lymphoma, and it was recommended that she continue expectant management. She is seen for a scheduled visit. She has been doing pretty well generally, though she does complain that she just does not feel good when she first gets up in the morning. Once she gets going she has reasonably good energy/activity tolerance. Her ECOG score is 1. Her appetite is still not real good. Her weight is stable. She does not have fever or night sweats. She has ongoing complaints with double vision, but that problem had started even prior to her CAR-T therapy. She also complains that she keeps a headache. It is mainly in the frontal area. She says it never goes away. She also complains of being lightheaded all the time. She has a runny nose a lot. She has not had sore mouth or throat. She intermittently has dry cough. She does not complain of shortness of breath or chest pain. She has a little bit of nausea. She takes Prevacid for acid reflux, but not on a consistent basis. Her bowel function is pretty regular, though she has to watch what she eats. She has had ongoing problems with recurrent urinary tract infections. She has been seeing Dr. Peralta, and she is now scheduled to see Dr. Altamirano. She has some joint pain, mainly in the hands. She also has some pain in the ball of her right foot and she has slight tingling in her fingers. She also has ongoing problems with anxiety/stress. She takes alprazolam at bedtime to help her sleep. Medications: ALPRAZolam 1 Tablet (of 1 mg) Oral at bedtime PRN, C 1000 1 Tablet (of 1000 mg) Oral daily, Excedrin Extra Strength 2 Tablet (of 250-250-65 mg) Oral daily Allergies: BACTRIM and Metoprolol Tartrate. Vital Signs: Performed on Feb 21, 2022 14:20 Height - 65.50 in Weight - 117.4 lbs (LOW) BSA - 1.59 sq.m BMI - 19.24 Temperature - 97.4 F (LOW) Pulse - 71 /min Respiration - 16 /min BP - 149/72 mm(hg) (HIGH) O2 Sat - 99 % Pain - 3 Fatigue - 2 Physical Examination: Constitutional - She looks good generally, Eyes - Sclerae nonicteric. Conjunctivae clear, ENMT - No lesions noted in the oral cavity, Hematologic/Lymphatic - No cervical, clavicular, or axillary adenopathy, Respiratory - Lungs are clear with good air movement bilaterally, Cardiovascular - Heart rhythm is regular. There is no murmur, gallop, or rub noted, Abdomen - Soft. Liver and spleen are not enlarged. There is an area of firmness palpble in the upper abdomen/epigastrium, and it is pulsatile. There is no other abdominal mass or ascites noted. There is no inguinal adenopathy, Extremities - No edema, Neurologic - No focal neurologic deficits noted. Lab/Imaging: CBC shows hemoglobin 12.3 g, white blood cell count 2700, and platelet count 155,000. Comprehensive metabolic profile shows normal renal function with BUN 10 and creatinine 0.8 mg/dL. Bilirubin and liver enzymes are normal. LDH is normal 191 U/L. Problem List: 1. Diffuse large B-cell lymphoma, germinal center phenotype, presenting as rapidly enlarging abdominal mass. By clinical evaluation her disease was stage IIIB at initial diagnosis in August 2017. Her disease was high risk with NCCN-IPI score of 6. 2. She developed treatment related hypogammaglobulinemia, requiring replacement therapy. 3. Hypertension. 4. GERD. 5. Chronic anxiety. Problems Addressed with this Encounter and Plan: 1. Patient with diffuse large B-cell lymphoma, germinal center phenotype, presenting as rapidly enlarging abdominal mass. By clinical evaluation her disease was stage IIIB. It was high risk with NCCN-IPI score of 6. She was treated with R-CHOP chemotherapy beginning in August 2017. She appeared to have complete response by follow-up PET/CT after 3 cycles. She had multiple treatment related toxicities, and her chemotherapy was stopped after the 4th cycle, which she received on 11/22/2018. Restaging PET/CT on 03/10/2018 showed abnormal activity in the retroperitoneum and mesenteric territories consistent with recurrent lymphoma. She was referred to [facility]. She underwent salvage chemotherapy with 2 cycles of R-ICE in preparation for high-dose chemotherapy/stem cell transplant. However, her restaging PET/CT on 05/23/2018 showed disease progression. She then underwent Car-T therapy with pheresis of lymphocytes for Yescarta production on 06/14/2018, infusion of lymphodepleting chemotherapy 07/11 -07/13/2018, and Yescarta infusion on 07/16/2018. She had developed pancytopenia and prolonged neutropenia following the Car T therapy, requiring growth factor support with Neupogen, but her neutrophil count did recover in the latter part of October 2018. As of November 2019 her restaging PET/CT continued to show sustained complete response to the Car-T therapy. During follow-up she has had ongoing complaints of fatigue, headache, and double vision. She also has been having recurrent urinary tract infection, for which she will be seeing Dr. Altamirano. However, thus far there has been no evidence of recurrence of the lymphoma, now more than 3-1/2 years following completion of CAR-T therapy. She remains on expectant management. I will see her again in 6 months. 2. She has ongoing complaints of anxiety and stress. She has been taking alprazolam at bedtime. I suggested that she cut back on that and try using Benadryl instead. I also discussed the possibility of trying an antidepressant. However, she prefers not to do that, she did try Effexor once in the past and she had significant side effects with it. Signed By: Nghia Fontanez M.D. <<Signature on File>>
== END 2022-02-21 13:50 | disposition home or self-care (01) ==
PROVIDERS: PCP Family Medicine; Visit Provider Internal Medicine Medical Oncology
DX: C83.33 Diffuse large B-cell lymphoma, intra-abdominal lymph nodes (principal); D80.1 Nonfamilial hypogammaglobulinemia; I10 Essential (primary) hypertension; K21.9 Gastro-esophageal reflux disease without esophagitis; F41.9 Anxiety disorder, unspecified; Z79.899 Other long term (current) drug therapy; Z87.891 Personal history of nicotine dependence
CPT/HCPCS: 99214

== ENCOUNTER → 2022-03-09 08:42 | Outpatient (BNVA) | payer MEDICARE, OTHER, SELFPAY | PROVIDERS: PCP Family Medicine; Visit Provider Nurse Practitioner Family | DX: N39.0 Urinary tract infection, site not specified (principal) | CPT/HCPCS: 81003 ==

== ENCOUNTER 2022-03-23 22:16 | Emergency (ER) | payer MEDICARE, OTHER, SELFPAY ==
[2022-03-23 22:21] VITALS: BP 138/81; PULSE 82; RESP 20; TEMP 37.1; O2SAT 99
--- NOTE | 2022-03-23 22:33 | ECG_ITS ---
[facility] Test Date: 2022-03-23 Pat Name: Kaylah Arce Department: Room: Gender: Female Conference Planner: : 1950 Requested By: Bill Lovelace Order Number: [id number] Jerilyn MD: Steve Lucia M.D. Measurements Intervals [place] Rate: 66 P: 74 CT: 98 QRS: -15 QRSD: 104 T: 76 QT: 371 QTc: 391 Interpretive Statements SINUS RHYTHM WITH SHORT CT INTERVAL Compared to ECG 12/03/2019 02:18:20 No significant changes Electronically Signed On 03-24-2022 17:00:08 CDT by Steve Lucia M.D. [id number]
--- NOTE | 2022-03-23 22:33 | XRR_ITS ---
PROCEDURE INFORMATION: Exam: XR Chest Exam date and time: 03/23/2022 10:57 PM Age: 71 years old Clinical indication: Cough and shortness of breath; Patient HX: C/O cough with SOB. History of lymphoma. Ex smoker. TECHNIQUE: Imaging protocol: XR of the chest. Views: 1 view. COMPARISON: CR XR chest 1V portable [id number] 12/03/2019 1:01 AM FINDINGS: Lungs: Unremarkable. No consolidation. Pleural spaces: Unremarkable. No pleural effusion. No pneumothorax. Heart/Mediastinum: Unremarkable. No cardiomegaly. Bones/joints: Unremarkable. XR/XR chest 1V portable [id number] IMPRESSION: No acute findings.
--- NOTE | 2022-03-23 22:42 | ED_ITS ---
HPI - SOB/Dyspnea General: Chief Complaint: Shortness of Breath/Dyspnea Stated Complaint: SOB Time Seen by Provider: 03/23/22 22:17 Source: patient Mode of arrival: ambulatory Limitations: no limitations History of Present Illness: HPI Narrative: 71-year-old female who has a history of lymphoma its been in remission for years and states over the last 2 to 3 days she has been having increasing cough. She states that she feels like she is trying to cough something up but just cannot get it out. States that over the last day she started having sharp chest pain to she states it does not seem to be associated with her cough denies any tenderness denies any radiation of her pain. She has had no fevers no history any lung issues and is a non-smoker. Associated symptoms: Reports chest pain; Deny abdominal pain, fever(s), nausea or vomiting Review of Systems Const: Denies: fever(s), chills, body aches or change in appetite Eyes: Denies: blurry vision or eye discomfort ENMT: Denies: throat pain or dental pain Card: Reports: chest pain Resp: Reports: dyspnea and non-productive cough GI: Denies: abdominal pain, nausea, vomiting or diarrhea : Denies: dysuria Musc: Denies: neck pain or back pain Skin/Breast: Denies: rash Neuro: Denies: headache(s) Psych: Denies: depression Leland/Lymph: Denies: easy bruising All/Imm: Denies: urticaria PFSH ED PFSH: Medical History Anxiety Since diagnosis of lymphoma in 2017. Lymphoma Diagnosed in 2017 and she states that she had chemotherapy and T-cell replacement in [place]. Continues to follow with [facility] every 3 months [address] with [address] Fontanez at [facility]. No pertinent past medical history Denies: Hypertension, hypercholesterolemia, diabetes, heart, lung, liver, thyroid or kidney problems, DVT/PE. Primary Care Provider: Dr. Haro Recurrent UTI Surgical History History of bilateral breast biopsy 1994--benign per patient Hx of cataract surgery 2017--bilateral S/P tubal ligation 1989--laparoscopic Family History Father Heart disease Mother Asthma Grandmother Diabetes maternal Cervical cancer paternal Family/Other Diabetes Maternal uncles Son Thyroid condition Denies family history of Colon cancer Ovarian cancer Hyperlipidemia Breast cancer Hypertension Uterine cancer Stroke Social History Smoking and tobacco status: former smoker Alcohol intake: current Alcohol intake frequency: few times a month Marital status: Current occupational status: retired History of recent travel: No Physical Exam Const: COMMON NORMALS: no acute distress, patient oriented x3 and healthy appearing HENMT: COMMON NORMALS: normocephalic and atraumatic HEAD & SCALP: normocephalic and atraumatic Eye: COMMON NORMALS: Equal, round and reactive pupils present and EOMs intact bilaterally PUPIL: Yes Equal, round and reactive pupils present Neck/C-Spine: COMMON NORMALS: full ROM and supple Chest: COMMONS NORMALS: normal inspection of the chest and normal palpation of entire chest wall Resp: COMMON NORMALS: normal respiratory effort, No retractions, No use of accessory muscles and clear to auscultation bilaterally AUSCULTATION: clear to auscultation bilaterally Cardio: COMMON NORMALS: regular rate, regular rhythm and No murmurs present (Cardio) RATE: regular rate RHYTHM: regular rhythm GI: COMMON NORMALS: Normal to inspection, nondistended, normoactive bowel sounds present, Soft to palpation, non-tender and no masses PALPATION: Yes Soft to palpation Extremity: COMMON NORMALS: normal to inspection and full ROM Neuro: COMMON NORMALS: patient oriented x3, moves all extremities and no focal motor deficits Psych: COMMON NORMALS: mental status grossly normal, Normal thought process present and cooperative THOUGHT PROCESS: Normal thought process present Skin: COMMON NORMALS: no rashes or lesions noted and no wounds GENERAL SKIN EXAM: no rashes or lesions noted Course Vital Signs: Vital signs: Vital Signs Temperature 98.7 F 03/23/22 22:21 Pulse Rate 68 03/24/22 01:00 Respiratory Rate 19 H 03/24/22 01:00 Blood Pressure 138/70 03/24/22 01:00 Pulse Oximetry 98 03/24/22 01:00 MDM - SOB/Dyspnea Medical Decision Making Patient presents here with cough likely bronchitis no signs of acute coronary syndrome troponins are normal x-ray shows known big pneumonia we will start her on antibiotics give her one-time steroid here will prescribe her albuterol for home she is to follow-up PCP and return if worsening. Lab Data : 03/23/22 23:05 03/23/22 23:05 Labs/Radiology: Radiology Impressions Chest X-Ray 03/23/22 22:33 IMPRESSION: No acute findings. Laboratory Results WBC 3.2 10^3/uL (4.0-10.0) L 03/23/22 23:05 RBC 3.66 10^6/uL (4.1-5.3) L 03/23/22 23:05 Hgb 12.2 g/dL (11.5-15.3) 03/23/22 23:05 Hct 36.8 % (37.0-47.0) L 03/23/22 23:05 MCV 100.5 fl (81-99) H 03/23/22 23:05 MCH 33.3 pg (28.0-34.0) 03/23/22 23:05 MCHC 33.2 g/dL (30.0-36.0) 03/23/22 23:05 RDW 11.9 % (12.1-15.1) L 03/23/22 23:05 Plt Count 147 10^3/cmm (130-400) 03/23/22 23:05 MPV 9.7 fL (7.4-10.4) 03/23/22 23:05 Lymph % (Auto) Not Reportable 03/23/22 23:05 [place] % (Auto) Not Reportable 03/23/22 23:05 Lymph # (Auto) Not Reportable 03/23/22 23:05 [place] # (Auto) Not Reportable 03/23/22 23:05 Total Counted 100 (0-100) 03/23/22 23:05 Atypical Lymphs % 4.0 % (0-5) 03/23/22 23:05 Absolute Neutrophils 2.3 10^3/cmm (1.4-6.5) 03/23/22 23:05 Segmented Neutrophils 72 % 03/23/22 23:05 Abs Segm Neuts (Man) 2.3 10/cmm (1.6-7.1) 03/23/22 23:05 Band Neutrophils 1.0 % 03/23/22 23:05 Abs Band Neuts (Man) 0.0 10^3/cmm (0.0-1.2) 03/23/22 23:05 Absolute Lymphocytes 0.5 10^3/cmm (1.2-3.4) L 03/23/22 23:05 Lymphocytes (Manual) 13 % 03/23/22 23:05 Monocytes (Manual) 7.0 % 03/23/22 23:05 Absolute Monocytes 0.2 10^3/cmm (0.1-0.6) 03/23/22 23:05 Eosinophils (Manual) 2 % 03/23/22 23:05 Absolute Eosinophils 0.0 10^3/cmm (0.0-0.7) 03/23/22 23:05 Basophils (Manual) 1.0 % 03/23/22 23:05 Absolute Basophils 0.0 10^3/cmm (0.0-0.2) 03/23/22 23:05 Platelet Estimate Decreased (Normal) L 03/23/22 23:05 Poikilocytosis Trace 03/23/22 23:05 Macrocytosis Trace 03/23/22 23:05 Ovalocytes Trace 03/23/22 23:05 D-Dimer 0.51 ug/mIFEU (0-0.59) 03/23/22 23:05 Sodium 134 mmol/L (136-145) L 03/23/22 23:05 Potassium 3.8 mmol/L (3.5-5.1) 03/23/22 23:05 Chloride 98 mmol/L (98-107) 03/23/22 23:05 Carbon Dioxide 20 mmol/L (22-29) L 03/23/22 23:05 Anion Gap 19.8 (5-19) H 03/23/22 23:05 BUN 13 mg/dL (8-23) 03/23/22 23:05 Creatinine 1.0 mg/dL (0.5-0.9) H 03/23/22 23:05 GFR Calculation 55.0 mL/min (90-130) L 03/23/22 23:05 Glucose 89 mg/dL (65-115) 03/23/22 23:05 Calculated Osmolality 278 mOsm/kg (285-295) L 03/23/22 23:05 Calcium 8.6 mg/dL (8.5-10.5) 03/23/22 23:05 Total Bilirubin 0.2 mg/dL (0.15-1.2) 03/23/22 23:05 AST 22 U/L (0-32) 03/23/22 23:05 ALT 18 U/L (0-33) 03/23/22 23:05 Alkaline Phosphatase 29 IU/L (35-105) L 03/23/22 23:05 Troponin T Baseline 12 ng/L (0-10) H 03/23/22 23:05 Troponin T 120 Minute 9.58 ng/L (0-10) 03/24/22 00:49 Delta Troponin T -2.42 ABS# (0-10) L 03/24/22 00:49 NT-Pro-B Natriuret Pep 65 pg/mL (0-125) 03/23/22 23:05 Total Protein 6.4 g/dL (6.6-8.7) L 03/23/22 23:05 Albumin 4.4 g/dL (3.5-5.2) 03/23/22 23:05 Globulin 2.0 g/dL (1.3-4.6) 03/23/22 23:05 EKG Data EKG 1: I personally reviewed and interpreted this EKG as follows: EKG Interpretation Date: 03/23/22 EKG interpretation time: 22:50 Interpretation: nsr hr [address] or t wave abnormalities qrs 104 qtc 385 Discharge Plan Discharge Patient Disposition: Home Clinical Impression: Bronchitis Condition: Stable Prescriptions: New cephalexin 500 mg capsule 500 mg PO TID 7 Days Qty: 21 0RF albuterol sulfate 90 mcg/actuation HFA aerosol inhaler 2 inh INHALATION Q6H PRN (Reason: shortness of breath or wheezing) Qty: 8 0RF No Action lansoprazole [Prevacid] 30 mg capsule,delayed release(DR/EC) 30 mg PO DAILY PRN0RF bisacodyl [Dulcolax (bisacodyl)] 5 mg tablet,delayed release (DR/EC) 5 mg PO DAILY PRN0RF cholecalciferol (vitamin D3) 25 mcg (1,000 unit) capsule 25 mcg PO DAILY 0RF ascorbic acid (vitamin C) 500 mg capsule 2,000 mg PO DAILY 0RF Excedrin Extra Strength 250-250-65 mg tablet 1 tab PO Q6H PRN0RF nitrofurantoin monohyd/m-cryst [Macrobid] 100 mg capsule 100 mg PO Q12H Qty: 60 2RF Rx Instructions: must administer with a meal/food alprazolam 1 mg Tablet 1 mg PO DAILY 0RF Discharge Orders: Discharge ED (Routine); Ordered 03/24/22 Ordered By: Bill Lovelace Referrals: Ruy Haro MD [Primary Care Provider] - Discharge Diet: Advance as tolerated Discharge Activity: Resume usual activity Patient Instructions: Acute Bronchitis (ED) Coding Level of Care Code ED Hand Almond Blancher for Chg Fwd Exam Comprehensive
[2022-03-23] MEDS: ipratropium-albuterol 3 mL Neb INHALATION (23:04)
[2022-03-23 23:05] VITALS: PULSE 72; RESP 18; O2SAT 98
[2022-03-23 23:07] VITALS: PULSE 77
[2022-03-23 23:15] LABS: Hematocrit 36.8 % (37.0-47.0); Hemoglobin 12.2 g/dL (11.5-15.3); Mean Corpuscular HGB Conc 33.2 g/dL (30.0-36.0); Mean Corpuscular Hemoglobin 33.3 pg (28.0-34.0); Mean Corpuscular Volume 100.5 fl (81-99); Mean Platelet Volume 9.7 fL (7.4-10.4); Platelet Count 147 10^3/cmm (130-400); Red Blood Count 3.66 10^6/uL (4.1-5.3); Red Cell Distribution Width 11.9 % (12.1-15.1); White Blood Count 3.2 10^3/uL (4.0-10.0)
[2022-03-23 23:28] LABS: D Dimer 0.51 ug/mIFEU (0-0.59)
[2022-03-23 23:30] VITALS: BP 131/64; PULSE 78; RESP 22; O2SAT 98
[2022-03-23] MEDS: sodium chloride 0.9% 1,000 ML 999 ML IV (23:34)
[2022-03-23 23:37] LABS: Troponin(5th) Baseline 12 ng/L (0-10)
[2022-03-23 23:41] LABS: Alanine Aminotransferase 18 U/L (0-33); Albumin Level 4.4 g/dL (3.5-5.2); Alkaline Phosphatase 29 IU/L (35-105); Aspartate Amino Transferase 22 U/L (0-32); Blood Urea Nitrogen 13 mg/dL (8-23); Calcium 8.6 mg/dL (8.5-10.5); Carbon Dioxide 20 mmol/L (22-29); Chloride 98 mmol/L (98-107); Glucose 89 mg/dL (65-115); NT Pro B Type Natriuretic Pept 65 pg/mL (0-125); Osmolality Calculated 278 mOsm/kg (285-295); Sodium 134 mmol/L (136-145); Total Bilirubin 0.2 mg/dL (0.15-1.2); Total Protein 6.4 g/dL (6.6-8.7)
[2022-03-23 23:42] LABS: Total Cells Counted 100 (0-100)
[2022-03-23 23:43] LABS: Absolute Neutrophil 2.3 10^3/cmm (1.4-6.5); Absolute Segmented Neutrophil 2.3 10/cmm (1.6-7.1); Eosinophils 2 %; Lymphocytes 13 %; Lymphocytes Absolute 0.5 10^3/cmm (1.2-3.4); Monocytes Absolute 0.2 10^3/cmm (0.1-0.6); Platelet Estimate Decreased (Normal); Segmented Neutrophils 72 %
[2022-03-23 23:44] LABS: Macrocytosis Trace; Ovalocytes Trace; Poikilocytosis Trace
[2022-03-23 23:45] LABS: Creatinine Clr Calc Pharmacy 47.1602
[2022-03-23 23:46] LABS: Anion Gap 19.8 (5-19); Potassium 3.8 mmol/L (3.5-5.1)
[2022-03-24] VITALS: BP 132/58; PULSE 74; RESP 26; O2SAT 98
[2022-03-24 00:30] VITALS: BP 131/64; PULSE 87; RESP 22; O2SAT 99
--- NOTE | 2022-03-24 00:33 | ECG_ITS ---
[facility] Test Date: 2022-03-24 Pat Name: Kaylah Arce Department: Room: Gender: Female Senior Asp Net Developer: : 1950 Requested By: Bill Lovelace Order Number: [id number] Jerilyn MD: Steve Lucia M.D. Measurements Intervals [place] Rate: 77 P: 69 VT: 99 QRS: -18 QRSD: 103 T: 74 QT: 381 QTc: 433 Interpretive Statements SINUS RHYTHM WITH SHORT VT INTERVAL Compared to ECG 03/23/2022 22:50:06 No significant changes Electronically Signed On 03-24-2022 17:02:38 CDT by Steve Lucia M.D. [id number]
[2022-03-24 01:00] VITALS: BP 138/70; PULSE 68; RESP 19; O2SAT 98
[2022-03-24 01:23] LABS: Troponin 5 2HR 9.58 ng/L (0-10)
[2022-03-24 01:26] LABS: Troponin 5 2HR Delta -2.42 ABS# (0-10)
[2022-03-24] MEDS: dexamethasone 10 mg/mL INJ IVP (01:47)
[2022-03-24 02:13] VITALS: BP 152/78; PULSE 86; RESP 20; O2SAT 98
[2022-03-24 02:22] VITALS: BP 134/74; PULSE 80; RESP 20; O2SAT 99
== END 2022-03-24 02:24 | disposition home or self-care (01) ==
PROVIDERS: Emergency Provider Emergency Medicine; PCP Family Medicine
DX: J40 Bronchitis, not specified as acute or chronic (principal); F41.9 Anxiety disorder, unspecified; Z87.891 Personal history of nicotine dependence
CPT/HCPCS: 71045; 80053; 83880; 84484; 85007; 85025; 85378; 93005; 94640; 96361; 96374; 99284; J1100; J7030

== ENCOUNTER → 2022-05-20 09:26 | Outpatient (BNVA) | payer MEDICARE, OTHER, SELFPAY | PROVIDERS: PCP Family Medicine; Visit Provider Urology | DX: N39.0 Urinary tract infection, site not specified (principal) | CPT/HCPCS: 81003; 99213 ==

== ENCOUNTER → 2022-07-07 13:30 | Outpatient (BNVA) | payer MEDICARE, OTHER, SELFPAY | PROVIDERS: PCP Family Medicine; Visit Provider Surgery | DX: K59.00 Constipation, unspecified (principal); R11.2 Nausea with vomiting, unspecified | CPT/HCPCS: 99203 ==

== ENCOUNTER 2022-07-20 12:50 | Oncology outpatient (recurring) (ONCR) | payer MEDICARE, OTHER, SELFPAY ==
[2022-07-20 13:56] LABS: Eosinophils # 0.2 10^3/uL (0.0-0.8); Eosinophils % 3.9 %; Hematocrit 37.2 % (37.0-47.0); Hemoglobin 11.9 g/dL (11.5-15.3); Lymphocytes # 0.7 10^3/uL (0.8-4.8); Lymphocytes % 17.4 %; Mean Corpuscular Hemoglobin 33.5 pg (28.0-34.0); Mean Corpuscular Volume 104.8 fl (81-99); Mean Platelet Volume 9.4 fL (7.4-10.4); Monocytes # 0.5 10^3/uL (0.2-0.9); Monocytes % 13.5 %; Neutrophils # 2.44 10^3/uL (1.8-7.7); Neutrophils % 63.4 %; Nucleated Red Blood Cells % 0 %; Platelet Count 164 10^3/cmm (130-400); Red Blood Count 3.55 10^6/uL (4.1-5.3); Red Cell Distribution Width 11.9 % (12.1-15.1); White Blood Count 3.9 10^3/uL (4.0-10.0)
[2022-07-20 14:11] LABS: Alanine Aminotransferase 9 U/L (0-33); Albumin Level 4.2 g/dL (3.5-5.2); Alkaline Phosphatase 42 U/L (35-105); Anion Gap 15.2 (5-19); Aspartate Amino Transferase 15 U/L (0-32); Blood Urea Nitrogen 10 mg/dL (8-23); Calcium 9.1 mg/dL (8.5-10.5); Carbon Dioxide 22 mmol/L (22-29); Chloride 97 mmol/L (98-107); Globulin 1.9 g/dL (1.3-4.6); Glucose 76 mg/dL (65-115); Lactate Dehydrogenase 206 U/L (135-214); Osmolality Calculated 268 mOsm/kg (285-295); Potassium 4.2 mmol/L (3.5-5.1); Sodium 130 mmol/L (136-145); Total Bilirubin 0.2 mg/dL (0.15-1.2); Total Protein 6.1 g/dL (6.6-8.7)
[2022-07-20 18:14] LABS: Vitamin B12 483 pg/mL (232-1245)
== END 2022-07-27 23:59 | disposition home or self-care (01) ==
PROVIDERS: PCP Family Medicine; Visit Provider Internal Medicine Medical Oncology
DX: Z08 Encounter for follow-up examination after completed treatment for malignant neoplasm (principal); D80.1 Nonfamilial hypogammaglobulinemia; F41.9 Anxiety disorder, unspecified; R53.83 Other fatigue; D64.9 Anemia, unspecified; Z87.891 Personal history of nicotine dependence; Z85.72 Personal history of non-Hodgkin lymphomas
CPT/HCPCS: 80053; 82607; 83615; 84443; 85025; 99214

== ENCOUNTER 2022-08-10 14:01 | Oncology outpatient (recurring) (ONCR) | payer MEDICARE, OTHER, SELFPAY ==
--- NOTE | 2022-08-10 14:19 | CT_ITS ---
WS: [id number] CT ABDOMEN PELVIS TECHNIQUE: Contrast-enhanced CT of the abdomen and pelvis with coronal and sagittal reformatted image s. CLINICAL INFORMATION: compare to previous COMPARISON: CT 5 20,[address] 8 31,019, PET CT 12/01/18 DLP: 751.[address] scans at [facility] use at least one of these dose optimization techniques: automated e xposure control; mA and/or kV adjustment per patient size (includes targeted exams where dose is matc hed to clinical indication); or iterative reconstruction. FINDINGS: Diffuse fatty infiltration liver. Normal portal vein and splenic vein. Normal GE junction. Normal spl een. Adrenal glands are normal. Splenic artery calcification. Portal vein and splenic vein are patent . No abdominal or mesenteric lymphadenopathy. Mesenteric and para-aortic adenopathy described 2018 hicks s resolved. Lung bases are well aerated. Atrophic pancreas. Normal caliber abdominal aorta. Vascular calcificati on. Adrenal glands are normal. Normal renal parenchymal enhancement. Prominent extrarenal pelvis bila terally. No hydronephrosis. Lumbar scoliosis convex LEFT. Pelvic phleboliths. Tiny fat-containing umb ilical hernia. No inguinal lymphadenopathy. CT/CT abdomen pelvis w con* [id number] IMPRESSION: 1. No evidence of recurrent or progressive disease. 2. No adenopathy in the abdomen or pelvis. 3. No mesenteric lymphadenopathy. 4. Mild diffuse fatty infiltration liver. 5. Lumbar scoliosis. 6. No other remarkable findings.
[2022-08-10] MEDS: barium sulfate 450 mL Oral Susp PO (15:12)
[2022-08-10] MEDS: iohexol 350 mg/mL 100 mL Btl IV (15:35)
== END 2022-08-26 23:59 | disposition home or self-care (01) ==
LOC: RAD 08-11 08:50 → ONCMED 08-17 13:26
PROVIDERS: PCP Family Medicine; Visit Provider Internal Medicine Medical Oncology
DX: C83.33 Diffuse large B-cell lymphoma, intra-abdominal lymph nodes (principal); D80.1 Nonfamilial hypogammaglobulinemia
CPT/HCPCS: 74177

== ENCOUNTER 2022-11-07 13:08 | Outpatient (CLI) | payer MEDICARE, OTHER, SELFPAY ==
--- NOTE | 2022-11-07 13:22 | MM_ITS ---
WS: [id number] BILATERAL SCREENING DIGITAL TOMOSYNTHESIS MAMMOGRAM WITH CAD HISTORY: SCREENING COMPARISON: 06/04/2020, 05/10/2017 Bilateral CC and MLO views with tomosynthesis and synthetic mammography submitted. Computer aided det ection analyzed. Breast composition: There are scattered areas of fibroglandular density. No suspicious masses, microc alcifications or architectural distortion. MM/[place] [id number] IMPRESSION: BI-RADS: 1-Negative FOLLOW UP: 1 Year Follow-up
== END 2022-11-07 13:09 | disposition home or self-care (01) ==
LOC: RAD 13:12
PROVIDERS: PCP Family Medicine; Visit Provider Family Medicine
DX: Z12.31 Encounter for screening mammogram for malignant neoplasm of breast (principal)
CPT/HCPCS: 77063; 77067

== ENCOUNTER 2023-01-18 15:11 | Inpatient (IN) | payer MEDICARE, OTHER, SELFPAY ==
[2023-01-18] VITALS (17 sets, daily range): BP systolic 104–142; BP diastolic 60–80; PULSE 91–109; RESP 15–23; TEMP 36.8; O2SAT 93–96; BMI 19.3
--- NOTE | 2023-01-18 15:37 | ECG_ITS ---
[facility] Test Date: 2023-01-18 Pat Name: Kaylah Arce Department: Room: Gender: Female Local Flatbed Driver: : 1950 Requested By: Clare Pelayo Order Number: [id number] Jerilyn MD: Steve Lucia M.D. Measurements Intervals [place] Rate: 84 P: 66 AK: 117 QRS: -19 QRSD: 94 T: 64 QT: 358 QTc: 424 Interpretive Statements SINUS RHYTHM WITH SHORT AK INTERVAL POSSIBLE RIGHT VENTRICULAR CONDUCTION DELAY [RSR (QR) IN V1/V2] Compared to ECG 03/24/2022 01:41:34 No significant changes Electronically Signed On 01-18-2023 17:26:49 DIE SINKER by Steve Lucia M.D. [id number]
--- NOTE | 2023-01-18 15:43 | XRR_ITS ---
PROCEDURE INFORMATION: Exam: XR Chest Exam date and time: 01/18/2023 5:10 PM Age: 72 years old Clinical indication: Pain; Right-sided; Additional info: Chest/rib pain/syncope TECHNIQUE: Imaging protocol: Radiologic exam of the chest. Views: 1 view. COMPARISON: CR XR chest 1V portable [id number] 03/23/2022 10:57 PM FINDINGS: Lungs: Patchy right lung field airspace opacity suggestive of a pneumonic infiltrate. Emphysematous changes suspected. Pleural spaces: Small right pleural effusion. Heart/Mediastinum: Unremarkable. No cardiomegaly. Bones/joints: Right posterior 7th, 8th and 9th mildly displaced rib fractures. Subcutaneous emphysema seen over the right chest. XR/XR chest 1V portable [id number] IMPRESSION: 1. Small right pleural effusion. 2. Patchy right lung field airspace opacity suggestive of a pneumonic infiltrate. 3. Emphysematous changes suspected. 4. Right posterior 7th, 8th and 9th mildly displaced rib fractures. 5. Subcutaneous emphysema seen over the right chest. Consider further evaluation with a chest CT.
--- NOTE | 2023-01-18 15:43 | CTR_ITS ---
PROCEDURE INFORMATION: Exam: CT Chest With Contrast; Diagnostic Exam date and time: 01/18/2023 5:20 PM Age: 72 years old Clinical indication: Abdominal pain; On breathing; Additional info: Fall, R sided rib pain, hypotension/syncope. HX of lymphoma- now in remission TECHNIQUE: Imaging protocol: Diagnostic computed tomography of the chest with contrast. Radiation optimization: All CT scans at this facility use at least one of these dose optimization techniques: automated exposure control; mA and/or kV adjustment per patient size (includes targeted exams where dose is matched to clinical indication); or iterative reconstruction. Contrast material: OMNIPAQUE 350; Contrast volume: 95 ml; Contrast route: INTRAVENOUS (IV); REPORTING DATA: Count of CT and Cardiac NM exams in prior 12 months: This patient has received [address] and 0 known cardiac nuclear medicine studies in the 12 months prior to the current study. COMPARISON: CR (CHEST, ) 01/18/2023 5:10 PM RADIATION DOSE METRICS: Total DLP (mGy-cm): 1028.51 FINDINGS: Lungs: Right-sided pneumothorax with 14.4 mm separation between the lung and pleura with some mild leftward mediastinal shift. Right lower lobe atelectasis versus infiltrate. Pleural spaces: Large right pleural effusion containing some suspected blood products. Heart: Unremarkable. No cardiomegaly. No pericardial effusion. Lymph nodes: Unremarkable. No enlarged lymph nodes. Vasculature: Unremarkable. No aortic aneurysm. Bones/joints: Same-day chest x-ray demonstrated several right rib fractures, however, these are not well characterized on this exam as portions of the ribs extend posteriorly off the field of view, however, at least a right posterior 9th rib fracture is suspected. Soft tissues: Subcutaneous emphysema over the right chest. COMMENTS: In the absence of a history or active diagnosis of lung cancer, it is recommended that this patient with emphysema be evaluated for enrollment in a low dose CT lung cancer screening program. PROCEDURE INFORMATION: Exam: CT Abdomen And Pelvis With Contrast Exam date and time: 01/18/2023 5:20 PM Age: 72 years old Clinical indication: Abdominal pain; On breathing; Additional info: Fall, R sided rib pain, hypotension/syncope. HX of lymphoma- now in remission TECHNIQUE: Imaging protocol: Computed tomography of the abdomen and pelvis with contrast. Radiation optimization: All CT scans at this facility use at least one of these dose optimization techniques: automated exposure control; mA and/or kV adjustment per patient size (includes targeted exams where dose is matched to clinical indication); or iterative reconstruction. Contrast material: OMNIPAQUE 350; Contrast volume: 95 ml; Contrast route: INTRAVENOUS (IV); REPORTING DATA: Count of CT and Cardiac NM exams in prior 12 months: This patient has received [address] and 0 known cardiac nuclear medicine studies in the 12 months prior to the current study. COMPARISON: CT abdomen pelvis w con* [id number] 08/10/2022 3:18 PM RADIATION DOSE METRICS: Total DLP (mGy-cm): 1028.51 FINDINGS: Liver: Normal. No mass. Gallbladder and bile ducts: Normal. No calcified stones. No ductal dilation. Pancreas: Normal. No ductal dilation. Spleen: Normal. No splenomegaly. Adrenal glands: Normal. No mass. Kidneys and ureters: Normal. No hydronephrosis. Stomach and bowel: Constipation. Appendix: No evidence of appendicitis. Intraperitoneal space: Unremarkable. No free air. No significant fluid collection. Vasculature: Unremarkable. No abdominal aortic aneurysm. Lymph nodes: Unremarkable. No enlarged lymph nodes. Urinary bladder: Unremarkable as visualized. Reproductive: Unremarkable as visualized. Bones/joints: Unremarkable. No acute fracture. Soft tissues: Unremarkable. CT/CT chest abdpel w/*[id number] IMPRESSION: 1. Right-sided pneumothorax with 14.4 mm separation between the lung and pleura with some mild leftward mediastinal shift. 2. Large right pleural effusion containing some suspected blood products. 3. Right lower lobe atelectasis versus infiltrate. 4. Subcutaneous emphysema over the right chest. 5. Same-day chest x-ray demonstrated several right rib fractures, however, these are not well characterized on this exam as portions of the ribs extend posteriorly off the field of view, however, at least a right posterior 9th rib fracture is suspected. IMPRESSION: 1. Negative for traumatic injury to the abdomen or pelvis 2. Constipation. THIS REPORT CONTAINS FINDINGS THAT MAY BE CRITICAL TO PATIENT CARE. The findings were verbally communicated via telephone conference with Dr. Liriano at 6:33 PM OPERATIONS LABEL CLERK on 01/18/2023. The findings were acknowledged and understood.
--- NOTE | 2023-01-18 15:44 | ED_ITS ---
Documented by User: PAT Hensley 01/20/23 07:15 HPI - Syncope General: Chief Complaint: Back Pain/Injury Stated Complaint: BACK PAIN, POST FALL Time Seen by Provider: 01/18/23 15:26 Source: patient and EMS Mode of arrival: EMS Limitations: no limitations History of Present Illness: Patient is a 72-year-old female presents to ED today via EMS after they were called in response to a syncope. Patient states she had seen her primary care provider earlier today for evaluation of a fall that occurred a few days ago (another syncopal episode). She was having some right rib pain at the time. Patient states after leaving that appointment she got home and began feeling dizzy and lightheaded and started having tunnel vision believes she passed out or almost passed out. She states while on the floor she was diaphoretic and very weak and felt like she was dying thus called an ambulance. Patient tells me she has a longstanding history of syncopal episodes dating back to when she was a child. She states she has had countless evaluations in regards to this. She reports I am just a fainter I have always been a fainter . EMS states upon arrival systolic blood pressures were 70s-90s. Upon arrival to the emergency department and during my initial examination blake benton tells me that she does feel better and feeling more like myself again . Patient does have right rib pain but no other discomforts at this time. She denies chest pain, shortness of breath, difficulty breathing. Denies palpitations. She is not currently having any lightheadedness or dizziness. MD complaint: felt faint and almost passed out Onset (ago): hour(s) -: minutes(s) Prodromal symptoms: vision changes and lightheaded Witnessed: No Context: at rest Injuries sustained associated with event: none Associated symptoms: Reports chest pain (R rib pain from previous fall/syncope) and lightheadedness; Deny abdominal pain, fever(s), headache(s) or nausea Review of Systems Const: Denies: fever(s), chills, body aches, fatigue or malaise Card: Reports: chest pain (R rib pain from previous fall/syncope), lightheadedness and pre-syncope; Denies: palpitations, irregular heart rhythm, edema, swelling of feet/ankles, dyspnea on exertion or orthopnea Resp: Denies: dyspnea GI: Denies: abdominal pain, nausea, vomiting or diarrhea : Denies: flank pain, dysuria or hematuria Musc: Denies: neck pain, back pain, extremity pain or joint pain Skin/Breast: Denies: rash Neuro: Reports: frequent falls and dizziness; Denies: headache(s), numbness in extremities, weakness in extremities, sensory changes, lack of coordination, difficulty walking, confusion, behavioral changes, Slurred speech present or difficulty communicating thoughts PFSH ED PFSH: Medical History Chronic anxiety Constipation Diffuse large B cell lymphoma History of ESBL E. coli infection Hypogammaglobulinemia History of treatment related hypogammaglobulinemia Recurrent UTI Surgical History History of bilateral breast biopsy 1994--benign per patient Hx of cataract surgery 2017--bilateral S/P tubal ligation 1989--laparoscopic Family History Father Heart disease Mother Asthma Grandmother Diabetes maternal Cervical cancer paternal Family/Other Diabetes Maternal uncles Son Thyroid condition Denies family history of Colon cancer Ovarian cancer Hyperlipidemia Breast cancer Hypertension Uterine cancer Stroke Social History Smoking and tobacco status: former smoker (smoked x 25 years) Alcohol intake: current Alcohol intake frequency: holidays/special occasions only Marital status: Current occupational status: retired Physical Exam Const: COMMON NORMALS: no acute distress, average body habitus, patient oriented x3, no limitations, healthy appearing, alert and well nourished GENERAL APPEARANCE: cooperative ORIENTATION/CONSCIOUSNESS: Yes awake, Yes oriented to person, Yes oriented to place and Yes oriented to time HENMT: COMMON NORMALS: normocephalic and atraumatic HEAD & SCALP: normal to inspection, normocephalic and atraumatic FACE & SINUS: normal facial exam Eye: GENERAL EYE: appearance normal, both eyes and all related structures Neck/C-Spine: COMMON NORMALS: full ROM, no lymphadenopathy, supple and no meningeal signs CERVICAL SPINE: Yes cervical ROM normal, No pain with cervical ROM, No Cervical spine tenderness and No step off deformity Chest: OTHER: mild ecchymosis to R lateral ribs with tenderness and slight crepitus suspicious for rib fractures Resp: COMMON NORMALS: normal respiratory effort and clear to auscultation bilaterally AUSCULTATION: clear to auscultation bilaterally Cardio: COMMON NORMALS: regular rate and regular rhythm RATE: regular rate RHYTHM: regular rhythm GI: COMMON NORMALS: Normal to inspection, nondistended, normoactive bowel sounds present, Soft to palpation, non-tender, No hepatosplenomegaly present and no masses PALPATION: Yes Soft to palpation and Yes No hepatosplenomegaly present Back/Pelvis: COMMON NORMALS: thoracic and lumbar spine normal to inspection, no thoracic nor lumbar tenderness and thoraco-lumbar ROM normal Extremity: COMMON NORMALS: normal to inspection and full ROM GENERAL: Yes normal exam except as noted Neuro: WILMAR COMA SCALE: document GCS findings Clawson coma scale eye opening: Spontaneous Clawson coma scale verbal response: Orientated Clawson coma scale motor response: Obey commands Clawson coma scale total score: 15 COMMON NORMALS: patient oriented x3, CN's II-XII intact bilaterally, moves all extre mities, no focal motor deficits and no sensory deficits noted SENSORIUM/ORIENTATION: Yes alert, Yes oriented to person, Yes oriented to place and Yes oriented to time MENINGEAL SIGNS: Yes no meningeal signs Skin: TRAUMA: no lacerations or abrasions Course ED course: Patient is a 72 yo female here after a syncopal episode. These seem to be chronic for her but something about this one seemed different per patient. On exam she has palpable crepitus to her R lateral chest concerning for rib fractures/subq emphysema from her fall 5 days ago. Vitals are stable. Care transferred to [facility] Morris pending labs, CXR, and CT chest/abdomen/pelvis imaging. ES 193, consulted Dr. Monzon regarding patient's abnormality on the CT scan he agreed for consult. 1939, Dr. Gómez was consulted for hospitalist admission requested CT of the head for further evaluation regarding syncopal episodes. Vital Signs: Vital signs: Vital Signs Temperature 98.5 F 01/19/23 19:30 Pulse Rate 80 01/19/23 19:30 Respiratory Rate 17 01/19/23 19:30 Blood Pressure 135/70 01/19/23 19:30 Pulse Oximetry 92 01/19/23 19:30 Oxygen Delivery Me thod 02/23/23 08:00 MDM - Syncope Lab Data 01/18/23 15:00 01/18/23 15:00 Radiology Impressions Chest/Abdomen/Pelvis CT 01/18/23 15:43 IMPRESSION: 1. Right-sided pneumothorax with 14.4 mm separation between the lung and pleura with some mild leftward mediastinal shift. 2. Large right pleural effusion containing some suspected blood products. 3. Right lower lobe atelectasis versus infiltrate. 4. Subcutaneous emphysema over the right chest. 5. Same-day chest x-ray demonstrated several right rib fractures, however, these are not well characterized on this exam as portions of the ribs extend posteriorly off the field of view, however, at least a right posterior 9th rib fracture is suspected. IMPRESSION: 1. Negative for traumatic injury to the abdomen or pelvis 2. Constipation. THIS REPORT CONTAINS FINDINGS THAT MAY BE CRITICAL TO PATIENT CARE. The findings were verbally communicated via telephone conference with Dr. Liriano at 6:33 PM BANKING MANAGER on 01/18/2023. The findings were acknowledged and understood. Head CT 01/18/23 19:28 IMPRESSION: Negative for intracranial hemorrhage or mass effect. Carotid Doppler Study 01/18/23 20:22 IMPRESSION: 1. Scattered atherosclerotic plaque throughout the carotid arterial systems. 2. Right internal carotid artery peak systolic velocity of 133 cm/s consistent with less than 50% stenosis. 3. Left internal carotid artery peak systolic velocity of 214 cm/s consistent with 50-75% stenosis. REFERENCES: SRU CRITERIA. The degree of internal carotid artery stenosis is based on criteria defined by the Society of Radiologists in Ultrasound (SRU). Normal is no stenosis. Mild is less than 50% stenosis. Moderate is 50-69% stenosis. Severe is greater than 69% stenosis to near occlusion. Near occlusion is a markedly narrowed lumen. Total occlusion is no detectable patent lumen. Abdomen Ultrasound 01/18/23 21:12 IMPRESSION: 1. Moderate right pleural effusion. 2. Negative for fluid about the liver. 3. Pericardial effusion incidentally noted by the technologist measuring up to 1.2 cm in thickness, however, this is not confirmed on recent CT scan. Chest X-Ray 01/19/23 06:00 IMPRESSION: 1. Stable exam of the chest since comparison. 2. Residual right chest hydropneumothorax. Continued radiographic surveillance recommended. Chest Ultrasound 01/19/23 08:44 IMPRESSION: Hemothorax within the RIGHT pleural space. Insufficient mobile fluid for thoracentesis. Laboratory Results WBC 7.4 10^3/uL (4.0-10.0) 01/18/23 15:00 RBC 3.07 10^6/uL (4.1-5.3) L 01/18/23 15:00 Hgb 10.0 g/dL (11.5-15.3) L 01/18/23 15:00 Hct 31.6 % (37.0-47.0) L 01/18/23 15:00 MCV 102.9 fl (81-99) H 01/18/23 15:00 MCH 32.6 pg (28.0-34.0) 01/18/23 15:00 MCHC 31.6 g/dL (30.0-36.0) 01/18/23 15:00 RDW 11.9 % (12.1-15.1) L 01/18/23 15:00 Plt Count 208 10^3/cmm (130-400) 01/18/23 15:00 MPV 10.3 fL (7.4-10.4) 01/18/23 15:00 Neut % (Auto) 66.3 % 01/18/23 15:00 Lymph % (Auto) 14.8 % 01/18/23 15:00 Archer % (Auto) 10.3 % 01/18/23 15:00 Eos % (Auto) 3.9 % 01/18/23 15:00 Baso % (Auto) 0.8 % 01/18/23 15:00 Neut # (Auto) 4.88 10^3/uL (1.8-7.7) 01/18/23 15:00 Lymph # (Auto) 1.1 10^3/uL (0.8-4.8) 01/18/23 15:00 Archer # (Auto) 0.8 10^3/uL (0.2-0.9) 01/18/23 15:00 Eos # (Auto) 0.3 10^3/uL (0.0-0.8) 01/18/23 15:00 Baso # (Auto) 0.1 10^3/uL (0.0-0.1) 01/18/23 15:00 Nucleated RBC % (auto) 0 % 01/18/23 15:00 Nucleated RBCs # 0.0 /100WBC 01/18/23 15:00 Sodium 134 mmol/L (136-145) L 01/18/23 15:00 Potassium 3.5 mmol/L (3.5-5.1) 01/18/23 15:00 Chloride 99 mmol/L (98-107) 01/18/23 15:00 Carbon Dioxide 20 mmol/L (22-29) L 01/18/23 15:00 Anion Gap 18.5 (5-19) 01/18/23 15:00 BUN 9 mg/dL (8-23) 01/18/23 15:00 Creatinine 1.1 mg/dL (0.5-0.9) H 01/18/23 15:00 GFR Calculation 49.1 mL/min (90-130) L 01/18/23 15:00 Glucose 158 mg/dL (65-115) H 01/18/23 15:00 Calculated Osmolality 280 mOsm/kg (285-295) L 01/18/23 15:00 Calcium 8.8 mg/dL (8.5-10.5) 01/18/23 15:00 Iron 25 ug/dL (37-145) L 01/18/23 15:00 TIBC 239 mcg/dl 01/18/23 15:00 % Saturation 10.4 % (20-50) L 01/18/23 15:00 Unsat Iron Binding 214 ug/dL (112-347) 01/18/23 15:00 Total Bilirubin 0.2 mg/dL (0.15-1.2) 01/18/23 15:00 AST 16 U/L (0-32) 01/18/23 15:00 ALT 9 U/L (0-33) 01/18/23 15:00 Alkaline Phosphatase 31 U/L (35-105) L 01/18/23 15:00 Troponin T Baseline 10 ng/L (0-10) 01/18/23 15:00 Troponin T 120 Minute 10.81 ng/L (0-10) H 01/18/23 18:23 Delta Troponin T 0.81 ABS# (0-10) 01/18/23 18:23 Troponin T Hi Sens 6Hr 12.45 ng/L (0-10) H 01/18/23 21:07 Troponin T Hi Sens 6Hr Delta 2.45 ng/L (0-12) 01/18/23 21:07 Total Protein 5.6 g/dL (6.6-8.7) L 01/18/23 15:00 Albumin 3.5 g/dL (3.5-5.2) 01/18/23 15:00 Globulin 2.1 g/dL (1.3-4.6) 01/18/23 15:00 Vitamin B12 1713 pg/mL (232-1245) H 01/18/23 15:00 Folate > 20.0 ng/mL (4.8-37.3) 01/18/23 15:00 Procalcitonin 0.13 ng/mL (0-0.5) 01/18/23 15:00 TSH 1.11 uIU/mL (0.27-4.20) 01/18/23 15:00 Nasal Influ A H1 2008 PCR Not detected (NOT DETECT) 01/18/23 21:50 Adenovirus (PCR) Not detected (NOT DETECT) 01/18/23 21:50 C. pneumoniae DNA (PCR) Not detected (NOT DETECT) 01/18/23 21:50 Coronavirus 229E (PCR) Not detected (NOT DETECT) 01/18/23 21:50 Human Metapneumovir PCR Not detected (NOT DETECT) 01/18/23 21:50 Influenza A (H1) PCR Not detected (NOT DETECT) 01/18/23 21:50 Influenza A (H3) PCR Not detected (NOT DETECT) 01/18/23 21:50 Influenza Type A (PCR) Not detected (NOT DETECT) 01/18/23 21:50 Influenza Type B (PCR) Not detected (NOT DETECT) 01/18/23 21:50 M. pneumoniae (PCR) Not detected (NOT DETECT) 01/18/23 21:50 Parainfluenza 1 (PCR) Not detected (NOT DETECT) 01/18/23 21:50 Parainfluenza 2 (PCR) Not detected (NOT DETECT) 01/18/23 21:50 Parainfluenza 3 (PCR) Not detected (NOT DETECT) 01/18/23 21:50 Parainfluenza 4 (PCR) Not detected (NOT DETECT) 01/18/23 21:50 RSV Type A (PCR) Not detected (NOT DETECT) 01/18/23 21:50 RSV Type B (PCR) Not detected (NOT DETECT) 01/18/23 21:50 Entero/Rhino (PCR) Detected (NOT DETECT) A 01/18/23 21:50 SARS-CoV-2 (PCR) Not detected (NOT DETECT) 01/18/23 21:50 Discharge Plan Discharge Patient Disposition: Admitted As Inpatient Admit Provider: Cristopher Page Clinical Impression: Pleural effusion, Near syncope Pneumonia Qualifiers: Pneumonia type: due to unspecified organism Laterality: right Lung location: lower lobe of lung Qualified Code(s): J18.9 - Pneumonia, unspecified organism Rib fractures Qualifiers: Encounter type: initial encounter Fracture type: closed Laterality: right Qualified Code(s): S22.41XA - Multiple fractures of ribs, right side, initial encounter for closed fracture Pneumothorax Qualifiers: Pneumothorax type: traumatic Encounter type: initial encounter Qualified Code(s): S27.0XXA - Traumatic pneumothorax, initial encounter Condition: Stable Sign Out Sign Out Data: Patient Sign Out occurred on 01/18/23 at 17:15. Patient's care was discussed, and care was transferred from to Geoff Liriano. Post-Handoff Eval: Patient was came in today due to a episode of syncope. Patient reports that she fell about 1 week ago and had injured her right ribs. Patient reported persistent pain in the right rib area. Patient has a history of lymphoma. Patient appears chronically ill. Reviewed chest x-ray notes to obvious anterior rib fractures with atelectasis and possible developing pneumonia. Coding Level of Care Code ED Exotic Dancer for Chg Fwd Documented by User: MORGAN River 01/18/23 21:01 HPI - Syncope General: Chief Complaint: Back Pain/Injury Stated Complaint: BACK PAIN, POST FALL Time Seen by Provider: 01/18/23 15:26 PFS ED 2 PFSH: Medical History Chronic anxiety Constipation Diffuse large B cell lymphoma History of ESBL E. coli infection Hypogammaglobulinemia History of treatment related hypogammaglobulinemia Recurrent UTI Surgical History History of bilateral breast biopsy 1994--benign per patient Hx of cataract surgery 2017--bilateral S/P tubal ligation 1989--laparoscopic Family History Father Heart disease Mother Asthma Grandmother Diabetes maternal Cervical cancer paternal Family/Other Diabetes Maternal uncles Son Thyroid condition Denies family history of Colon cancer Ovarian cancer Hyperlipidemia Breast cancer Hypertension Uterine cancer Stroke Social History Smoking and tobacco status: former smoker (smoked x 25 years) Alcohol intake: current Alcohol intake frequency: holidays/special occasions only Marital status: Current occupational status: retired Physical Exam Neuro: WILMAR COMA SCALE: document GCS findings Wilmar coma scale total score: 15 Course ED course: 1934, consulted Dr. Monzon regarding patient's abnormality on the CT scan he agreed for consult. 1939, Dr. Gómez was consulted for hospitalist admission requested CT of the head for further evaluation regarding syncopal episodes. Vital Signs: Vital signs: Vital Signs Temperature 98.5 F 01/19/23 19:30 Pulse Rate 80 01/19/23 19:30 Respiratory Rate 17 01/19/23 19:30 Blood Pressure 135/70 01/19/23 19:30 Pulse Oximetry 92 01/19/23 19:30 Oxygen Delivery Me thod 01/19/23 08:00 MDM - Syncope Medical Decision Making 72-year-old female comes in today with complaints of syncopal episode that occurred earlier today. Patient reports that she fell about 5 days ago and starting last night she had increased chest discomfort in the right lower ribs. Patient reports that the pain has been there for the last 5 days after her fall but worsened last night. Patient appears nontoxic. Patient appears in mild pain at rest. Patient has decreased air movement in the right lower lung. Tenderness is noted to the right anterior chest wall. Abdomen soft nontender. No edema is noted in the extremities. Patient does have a history of lymphoma. Differential diagnosis includes rib fracture, pneumonia, pneumothorax. 1 view chest x-ray noted to fractured ribs on the right lower ribs with atelectasis versus developing pneumonia, also noted was some subcu emphysema and [address] of the chest abdomen pelvis noted a right pleural effusion, early pneumonia, seventh eighth and ninth rib fracture, small pneumothorax and pleural effusion. Reviewed with Dr. Lovelace who agreed with plan that patient needs to be admitted. He recommended consulting with Dr. Monzon branch examiner. Dr. Gómez was consulted for hospitalist and admission. Patient reported understanding of care plan and agreed to admission for respiratory therapy, antibiotics, high risk of deterioration for respiratory failure. Lab Data 01/18/23 15:00 01/18/23 15:00 Radiology Impressions Chest/Abdomen/Pelvis CT 01/18/23 15:43 IMPRESSION: 1. Right-sided pneumothorax with 14.4 mm separation between the lung and pleura with some mild leftward mediastinal shift. 2. Large right pleural effusion containing some suspected blood products. 3. Right lower lobe atelectasis versus infiltrate. 4. Subcutaneous emphysema over the right chest. 5. Same-day chest x-ray demonstrated several right rib fractures, however, these are not well characterized on this exam as portions of the ribs extend posteriorly off the field of view, however, at least a right posterior 9th rib fracture is suspected. IMPRESSION: 1. Negative for traumatic injury to the abdomen or pelvis 2. Constipation. THIS REPORT CONTAINS FINDINGS THAT MAY BE CRITICAL TO PATIENT CARE. The findings were verbally communicated via telephone conference with Dr. Liriano at 6:33 PM BANKING MANAGER on 01/18/2023. The findings were acknowledged and understood. Head CT 01/18/23 19:28 IMPRESSION: Negative for intracranial hemorrhage or mass effect. Carotid Doppler Study 01/18/23 20:22 IMPRESSION: 1. Scattered atherosclerotic plaque throughout the carotid arterial systems. 2. Right internal carotid artery peak systolic velocity of 133 cm/s consistent with less than 50% stenosis. 3. Left internal carotid artery peak systolic velocity of 214 cm/s consistent with 50-75% stenosis. REFERENCES: SRU CRITERIA. The degree of internal carotid artery stenosis is based on criteria defined by the Society of Radiologists in Ultrasound (SRU). Normal is no stenosis. Mild is less than 50% stenosis. Moderate is 50-69% stenosis. Severe is greater than 69% stenosis to near occlusion. Near occlusion is a markedly narrowed lumen. Total occlusion is no detectable patent lumen. Abdomen Ultrasound 01/18/23 21:12 IMPRESSION: 1. Moderate right pleural effusion. 2. Negative for fluid about the liver. 3. Pericardial effusion incidentally noted by the technologist measuring up to 1.2 cm in thickness, however, this is not confirmed on recent CT scan. Chest X-Ray 01/19/23 06:00 IMPRESSION: 1. Stable exam of the chest since comparison. 2. Residual right chest hydropneumothorax. Continued radiographic surveillance recommended. Chest Ultrasound 01/19/23 08:44 IMPRESSION: Hemothorax within the RIGHT pleural space. Insufficient mobile fluid for thoracentesis. Laboratory Results WBC 7.4 10^3/uL (4.0-10.0) 01/18/23 15:00 RBC 3.07 10^6/uL (4.1-5.3) L 01/18/23 15:00 Hgb 10.0 g/dL (11.5-15.3) L 01/18/23 15:00 Hct 31.6 % (37.0-47.0) L 01/18/23 15:00 MCV 102.9 fl (81-99) H 01/18/23 15:00 MCH 32.6 pg (28.0-34.0) 01/18/23 15:00 MCHC 31.6 g/dL (30.0-36.0) 01/18/23 15:00 RDW 11.9 % (12.1-15.1) L 01/18/23 15:00 Plt Count 208 10^3/cmm (130-400) 01/18/23 15:00 MPV 10.3 fL (7.4-10.4) 01/18/23 15:00 Neut % (Auto) 66.3 % 01/18/23 15:00 Lymph % (Auto) 14.8 % 01/18/23 15:00 Archer % (Auto) 10.3 % 01/18/23 15:00 Eos % (Auto) 3.9 % 01/18/23 15:00 Baso % (Auto) 0.8 % 01/18/23 15:00 Neut # (Auto) 4.88 10^3/uL (1.8-7.7) 01/18/23 15:00 Lymph # (Auto) 1.1 10^3/uL (0.8-4.8) 01/18/23 15:00 Archer # (Auto) 0.8 10^3/uL (0.2-0.9) 01/18/23 15:00 Eos # (Auto) 0.3 10^3/uL (0.0-0.8) 01/18/23 15:00 Baso # (Auto) 0.1 10^3/uL (0.0-0.1) 01/18/23 15:00 Nucleated RBC % (auto) 0 % 01/18/23 15:00 Nucleated RBCs # 0.0 /100WBC 01/18/23 15:00 Sodium 134 mmol/L (136-145) L 01/18/23 15:00 Potassium 3.5 mmol/L (3.5-5.1) 01/18/23 15:00 Chloride 99 mmol/L (98-107) 01/18/23 15:00 Carbon Dioxide 20 mmol/L (22-29) L 01/18/23 15:00 Anion Gap 18.5 (5-19) 01/18/23 15:00 BUN 9 mg/dL (8-23) 01/18/23 15:00 Creatinine 1.1 mg/dL (0.5-0.9) H 01/18/23 15:00 GFR Calculation 49.1 mL/min (90-130) L 01/18/23 15:00 Glucose 158 mg/dL (65-115) H 01/18/23 15:00 Calculated Osmolality 280 mOsm/kg (285-295) L 01/18/23 15:00 Calcium 8.8 mg/dL (8.5-10.5) 01/18/23 15:00 Iron 25 ug/dL (37-145) L 01/18/23 15:00 TIBC 239 mcg/dl 01/18/23 15:00 % Saturation 10.4 % (20-50) L 01/18/23 15:00 Unsat Iron Binding 214 ug/dL (112-347) 01/18/23 15:00 Total Bilirubin 0.2 mg/dL (0.15-1.2) 01/18/23 15:00 AST 16 U/L (0-32) 01/18/23 15:00 ALT 9 U/L (0-33) 01/18/23 15:00 Alkaline Phosphatase 31 U/L (35-105) L 01/18/23 15:00 Troponin T Baseline 10 ng/L (0-10) 01/18/23 15:00 Troponin T 120 Minute 10.81 ng/L (0-10) H 01/18/23 18:23 Delta Troponin T 0.81 ABS# (0-10) 01/18/23 18: Troponin T Hi Sens 6Hr 12.45 ng/L (0-10) H 01/18/23 21:07 Troponin T Hi Sens 6Hr Delta 2.45 ng/L (0-12) 01/18/23 21:07 Total Protein 5.6 g/dL (6.6-8.7) L 01/18/23 15:00 Albumin 3.5 g/dL (3.5-5.2) 01/18/23 15:00 Globulin 2.1 g/dL (1.3-4.6) 01/18/23 15:00 Vitamin B12 1713 pg/mL (232-1245) H 01/18/23 15:00 Folate > 20.0 ng/mL (4.8-37.3) 01/18/23 15:00 Procalcitonin 0.13 ng/mL (0-0.5) 01/18/23 15:00 TSH 1.11 uIU/mL (0.27-4.20) 01/18/23 15:00 Nasal Influ A H1 2008 PCR Not detected (NOT DETECT) 01/18/23 21:50 Adenovirus (PCR) Not detected (NOT DETECT) 01/18/23 21:50 C. pneumoniae DNA (PCR) Not detected (NOT DETECT) 01/18/23 21:50 Coronavirus 229E (PCR) Not detected (NOT DETECT) 01/18/23 21:50 Human Metapneumovir PCR Not detected (NOT DETECT) 01/18/23 21:50 Influenza A (H1) PCR Not detected (NOT DETECT) 01/18/23 21:50 Influenza A (H3) PCR Not detected (NOT DETECT) 01/18/23 21:50 Influenza Type A (PCR) Not detected (NOT DETECT) 01/18/23 21:50 Influenza Type B (PCR) Not detected (NOT DETECT) 01/18/23 21:50 M. pneumoniae (PCR) Not detected (NOT DETECT) 01/18/23 21:50 Parainfluenza 1 (PCR) Not detected (NOT DETECT) 01/18/23 21:50 Parainfluenza 2 (PCR) Not detected (NOT DETECT) 01/18/23 21:50 Parainfluenza 3 (PCR) Not detected (NOT DETECT) 01/18/23 21:50 Parainfluenza 4 (PCR) Not detected (NOT DETECT) 01/18/23 21:50 RSV Type A (PCR) Not detected (NOT DETECT) 01/18/23 21:50 RSV Type B (PCR) Not detected (NOT DETECT) 01/18/23 21:50 Entero/Rhino (PCR) Detected (NOT DETECT) A 01/18/23 21:50 SARS-CoV-2 (PCR) Not detected (NOT DETECT) 01/18/23 21:50 Discharge Plan Discharge Patient Disposition: Admitted As Inpatient Admit Provider: Cristopher Page Clinical Impression: Pleural effusion, Near syncope Pneumonia Qualifiers: Pneumonia type: due to unspecified organism Laterality: right Lung location: lower lobe of lung Qualified Code(s): J18.9 - Pneumonia, unspecified organism Rib fractures Qualifiers: Encounter type: initial encounter Fracture type: closed Laterality: right Qualified Code(s): S22.41XA - Multiple fractures of ribs, right side, initial encounter for closed fracture Pneumothorax Qualifiers: Pneumothorax type: traumatic Encounter type: initial encounter Qualified Code(s): S27.0XXA - Traumatic pneumothorax, initial encounter Condition: Stable Sign Out Sign Out Data: Patient Sign Out occurred on 01/18/23 at 17:15. Patient's care was discussed, and care was transferred from to Geoff Liriano. Post-Handoff Eval: Patient was came in today due to a episode of syncope. Patient reports that she fell about 1 week ago and had injured her right ribs. Patient reported persistent pain in the right rib area. Patient has a history of lymphoma. Patient appears chronically ill. Reviewed chest x-ray notes to obvious anterior rib fractures with atelectasis and possible developing pneumonia. Coding Level of Care Code ED Exotic Dancer for Tiera Rosenthal
[2023-01-18 16:00] LABS: Basophils # 0.1 10^3/uL (0.0-0.1); Basophils % 0.8 %; Eosinophils # 0.3 10^3/uL (0.0-0.8); Eosinophils % 3.9 %; Hematocrit 31.6 % (37.0-47.0); Lymphocytes # 1.1 10^3/uL (0.8-4.8); Lymphocytes % 14.8 %; Mean Corpuscular HGB Conc 31.6 g/dL (30.0-36.0); Mean Corpuscular Hemoglobin 32.6 pg (28.0-34.0); Mean Corpuscular Volume 102.9 fl (81-99); Mean Platelet Volume 10.3 fL (7.4-10.4); Monocytes # 0.8 10^3/uL (0.2-0.9); Monocytes % 10.3 %; Neutrophils # 4.88 10^3/uL (1.8-7.7); Neutrophils % 66.3 %; Nucleated Red Blood Cells % 0 %; Platelet Count 208 10^3/cmm (130-400); Red Blood Count 3.07 10^6/uL (4.1-5.3); Red Cell Distribution Width 11.9 % (12.1-15.1); White Blood Count 7.4 10^3/uL (4.0-10.0)
[2023-01-18 16:24] LABS: Troponin(5th) Baseline 10 ng/L (0-10)
[2023-01-18 16:27] LABS: Alanine Aminotransferase 9 U/L (0-33); Albumin Level 3.5 g/dL (3.5-5.2); Alkaline Phosphatase 31 U/L (35-105); Aspartate Amino Transferase 16 U/L (0-32); Blood Urea Nitrogen 9 mg/dL (8-23); Calcium 8.8 mg/dL (8.5-10.5); Carbon Dioxide 20 mmol/L (22-29); Chloride 99 mmol/L (98-107); Globulin 2.1 g/dL (1.3-4.6); Glomerular Filtration Rate 49.1 mL/min (90-130); Glucose 158 mg/dL (65-115); Osmolality Calculated 280 mOsm/kg (285-295); Sodium 134 mmol/L (136-145); Total Bilirubin 0.2 mg/dL (0.15-1.2); Total Protein 5.6 g/dL (6.6-8.7)
[2023-01-18 16:30] LABS: Anion Gap 18.5 (5-19); Potassium 3.5 mmol/L (3.5-5.1)
--- NOTE | 2023-01-18 17:43 | ECG_ITS ---
[facility] Test Date: 2023-01-18 Pat Name: Kaylah Arce Department: Room: Gender: Female Isobutylene Operator Chief: : 1950 Requested By: Clare Pelayo Order Number: [id number] Jerilyn MD: Steve Lucia M.D. Measurements Intervals [place] Rate: 103 P: 68 MA: 117 QRS: -14 QRSD: 88 T: 72 QT: 340 QTc: 446 Interpretive Statements SINUS TACHYCARDIA WITH SHORT MA INTERVAL Compared to ECG 01/18/2023 15:48:51 Sinus rhythm no longer present Electronically Signed On 01-18-2023 22:51:37 STORAGE GARAGE MANAGER by Steve Lucia M.D. [email or web address]/store/OM/[id number]
[2023-01-18 19:23] LABS: Troponin 5 2HR 10.81 ng/L (0-10)
--- NOTE | 2023-01-18 19:28 | CTR_ITS ---
PROCEDURE INFORMATION: Exam: CT Head Without Contrast Exam date and time: 01/18/2023 10:05 PM Age: 72 years old Clinical indication: Injury or trauma; Blunt trauma (contusions or hematomas); Patient HX: C/O posterior head pain post fall today. History of lymphoma. TECHNIQUE: Imaging protocol: Computed tomography of the head without contrast. Radiation optimization: All CT scans at this facility use at least one of these dose optimization techniques: automated exposure control; mA and/or kV adjustment per patient size (includes targeted exams where dose is matched to clinical indication); or iterative reconstruction. REPORTING DATA: Count of CT and Cardiac NM exams in prior 12 months: This patient has received 2 known CTs and 0 known cardiac nuclear medicine studies in the 12 months prior to the current study. COMPARISON: CT head wo/w con [id number] 01/26/2021 3:13 PM RADIATION DOSE METRICS: Total DLP (mGy-cm): 1113.18 FINDINGS: Brain: Mild diffuse white matter disease likely reflecting chronic microvascular ischemic changes. Cerebral ventricles: No ventriculomegaly. Paranasal sinuses: Visualized sinuses are unremarkable. No fluid levels. Mastoid air cells: Visualized mastoid air cells are well aerated. Bones/joints: Unremarkable. No acute fracture. Soft tissues: Unremarkable. CT/CT head wo con* [id number] IMPRESSION: Negative for intracranial hemorrhage or mass effect.
[2023-01-18 19:32] LABS: Troponin 5 2HR Delta 0.81 ABS# (0-10)
--- NOTE | 2023-01-18 20:22 | USCV_ITS ---
Kaylah Arce Age: 72 Gender: F : 1950 Exam Date: 01/18/2023 21:14 Ordering Phys: Cristopher Page MD Technologist: TOO [place] [facility] [place]: syncope BP: 129 / 66 HR: 98 Rhythm: Sinus Technical Quality: Technically difficult study MEASUREMENTS (Male / Female) Normal Values 2D ECHO LV Diastolic Diameter PLAX 2.7 cm 4.2 - 5.9 / 3.9 - 5.3 cm LV Systolic Diameter PLAX 1.9 cm IVS Diastolic Thickness 1.5 cm 0.6 - 1.0 / 0.6 - 0.9 cm IVS Systolic Thickness 2.1 cm LVPW Diastolic Thickness 1.4 cm 0.6 - 1.0 / 0.6 - 0.9 cm LVPW Systolic Thickness 1.7 cm LVOT Diameter 2.0 cm LV Ejection Fraction 2D Teich 58.8 % LV Ejection Fraction MOD 2C 79.2 % LV Ejection Fraction 2C AL 79.0 % LA Diameter 2.0 cm LA Width 3.0 cm LA Height 3.1 cm RA Width 2.5 cm RA Height 2.4 cm Aorta at Sinotubular Diameter 2.3 cm IVC Diameter 1.0 cm M-MODE Aortic Annulus Diameter 3.0 cm LA Ao Ratio MM 0.7 MV E Point Septal Separation 0.3 cm DOPPLER AV Peak Velocity 132.0 cm/s LVOT Peak Velocity 102.0 cm/s AV Area Cont Eq vti 2.8 cm squared AV Area Cont Eq pk 2.4 cm squared MV Area PHT 2.3 cm squared Mitral E to A Ratio 0.8 MV E' Velocity 41.0 cm/s Mitral E to MV E' Ratio 6.7 Mitral E to LV E' Lateral Ratio 6.7 Mitral E to LV E' Septal Ratio 6.7 TR Peak Velocity 286.0 cm/s TR Peak Gradient 32.7 mmHg TV Peak E Velocity 46.0 cm/s Right Atrial Pressure 5.0 mmHg Pulmonary Artery Systolic Pressu 37.7 mmHg FINDINGS Left Ventricle Normal left ventricular size and systolic function, EF 77 %. No regional wall motion abnormalities. Grade I/IV diastolic dysfunction (abnormal relaxation filling pattern), normal to mildly elevated filling pressures. Right Ventricle Normal RV size ejection fraction. Right Atrium Normal right atrial size. Left Atrium Normal left atrial size. Mitral Valve No gross abnormalities noted Aortic Valve Thickened aortic valve. Tricuspid Valve No gross abnormalities noted Pulmonic Valve Pulmonic valve not well visualized. Pericardium Moderate echo-free space anteriorly Aorta Normal aortic annulus size. IVC Inferior vena cava not visualized. CONCLUSIONS Normal left ventricular size and systolic function, EF 77 %. No regional wall motion abnormalities. Grade I/IV diastolic dysfunction (abnormal relaxation filling pattern), normal to mildly elevated filling pressures. Moderate echo-free space anteriorly suggesting possible loculated pericardial effusion Thickened aortic valve. There are no intracardiac masses. Technically somewhat difficult study because of the poor apical window. Dr Patrick Yoo MD FAC (Electronically Signed) Final Date: 19 January 2023 14:20 S
--- NOTE | 2023-01-18 20:22 | USR_ITS ---
PROCEDURE INFORMATION: Exam: US Duplex Bilateral Extracranial Arteries, Carotid Arteries Exam date and time: 01/18/2023 8:43 PM Age: 72 years old Clinical indication: Dizziness and syncope and collapse; Patient HX: Long-standing history of multiple syncopal episodes since childhood. No dm. Quit smoking 2013 TECHNIQUE: Imaging protocol: Real-time Duplex ultrasound scan of the bilateral carotid and vertebral arteries combining gee scale, color Doppler and spectral waveform analysis. Bilateral exam. Exam focused on the carotid arteries. COMPARISON: CT head wo/w con [id number] 01/26/2021 3:13 PM FINDINGS: Right common carotid artery: Scattered atherosclerotic plaque throughout the carotid arterial systems. Right internal carotid artery: Right internal carotid artery peak systolic velocity of 133 cm/s consistent with less than 50% stenosis. Right ICA/CCA ratio: Within normal limits. Right external carotid artery: No stenosis in the origin. Right vertebral artery: Unremarkable. Antegrade flow. Left common carotid artery: See above. Left internal carotid artery: Left internal carotid artery peak systolic velocity of 214 cm/s consistent with 50-75% stenosis. Left ICA/CCA ratio: Within normal limits. Left external carotid artery: No stenosis in the origin. Left vertebral artery: Unremarkable. Antegrade flow. Other findings: Scattered atherosclerotic plaque throughout the carotid arterial systems. US/CV carotid duplex BI* [id number] IMPRESSION: 1. Scattered atherosclerotic plaque throughout the carotid arterial systems. 2. Right internal carotid artery peak systolic velocity of 133 cm/s consistent with less than 50% stenosis. 3. Left internal carotid artery peak systolic velocity of 214 cm/s consistent with 50-75% stenosis. REFERENCES: SRU CRITERIA. The degree of internal carotid artery stenosis is based on criteria defined by the Society of Radiologists in Ultrasound (SRU). Normal is no stenosis. Mild is less than 50% stenosis. Moderate is 50-69% stenosis. Severe is greater than 69% stenosis to near occlusion. Near occlusion is a markedly narrowed lumen. Total occlusion is no detectable patent lumen.
--- NOTE | 2023-01-18 20:29 | P.HP_ITS ---
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 Patient does give history of syncope few days ago as well which caused her to fall after which she started having right-sided chest pain which gets exacerbated when taking a deep breath along with cough. She states since her fall back on Monday she is feeling extremely weak along with poor oral intake and dizziness on standing up from sitting position. Otherwise she denies any fever, nausea, vomiting, diarrhea, dysuria. Review of Systems General: Reports: 10 or more systems reviewed and unremarkable except in HPI and below Const: Denies: fever(s), chills, body aches, change in appetite, change in weight, malaise, night sweats, diaphoresis, change in sleep pattern, daytime sleepiness or snoring Eyes: Denies: change in vision, blurry vision, photophobia, eye discomfort or eye discharge ENMT: Denies: throat pain, enlarged tonsils, hoarseness, mouth pain, oral sores, dry mouth, tinnitus, nasal congestion or post nasal drip Card: Denies: chest pain, palpitations, irregular heart rhythm, edema, swelling of feet/ankles, lightheadedness, syncope, pre-syncope, dyspnea on exertion, orthopnea, leg pain with exertion or acrocyanosis Resp: Denies: dyspnea, productive cough, non-productive cough, wheezing, stridor, pain on inspiration, change in phlegm color, hemoptysis or chest congestion GI: Denies: abdominal pain, nausea, vomiting, hematemesis, coffee ground emesis, dysphagia, heartburn, diarrhea, constipation, bloating, GI cramping, change in bowel habits, pain on defecation, hematochezia or melena : Denies: flank pain, dysuria, urinary frequency, urinary urgency, urinary hesitancy, nocturia or hematuria Musc: Denies: neck pain, back pain, extremity pain, joint pain, joint swelling, joint redness, joint stiffness or limited range of motion Neuro: Denies: headache(s), numbness in extremities, weakness in extremities, sensory changes, lack of coordination, difficulty walking, frequent falls, dizziness, vertigo, confusion, Slurred speech present, difficulty communicating thoughts or seizure-like activity Psych: Denies: anxiety, depression, mood swings, panic attacks, hopelessness or irritability Endo: Denies: polyuria, polydipsia, tired all the time, cold intolerance, excessive sweating, flushing or heat intolerance Leland/Lymph: Denies: easy bruising or easy bleeding All/Imm: Denies: tongue swelling, facial swelling or acute wheezing Medications/Allergies Home Medications Medication Instructions Recorded Confirmed Last Taken Type jctxoeu-fuaztixtbwstk-bekteaec 250 1 tab PO Q6H PRN 06/10/20 01/18/23 Unknown History mg-250 mg-65 mg tablet (Excedrin Extra Strength) ascorbic acid (vitamin C) 500 mg 2,000 mg PO DAILY 09/27/21 01/18/23 Unknown History capsule lansoprazole 30 mg capsule,delayed 30 mg PO DAILY PRN 09/27/21 01/18/23 Unknown History release (Prevacid) bisacodyl 5 mg tablet,delayed 5 mg PO DAILY PRN 12/14/21 01/18/23 Unknown History release (Dulcolax (bisacodyl)) albuterol sulfate 90 mcg/actuation 2 inh inhalation Q6H PRN shortness 03/24/22 01/18/23 Unknown Rx aerosol inhaler of breath or wheezing #8 grams cholecalciferol (vitamin D3) 25 25 mcg PO DAILY PRN 07/20/22 01/18/23 Unknown History mcg (1,000 unit) capsule lactulose 10 gram/15 mL (15 mL) 15 ml PO BID PRN 07/20/22 01/18/23 Unknown History oral solution nitrofurantoin 100 mg PO Q12H PRN 07/20/22 01/18/23 Unknown History monohydrate/macrocrystals 100 mg capsule (Macrobid) paroxetine HCl 10 mg tablet (Paxil) 10 mg PO DAILY #30 tabs 07/20/22 01/18/23 Unknown Rx alprazolam 0.5 mg tablet 0.5 mg PO BID PRN anxiety #60 tabs 12/15/22 01/18/23 Unknown Rx hydrocodone 5 mg-acetaminophen 325 1 tab PO Q8H PRN pain 2 weeks #30 01/18/23 01/18/23 Unknown Rx mg tablet tabs lidocaine 5 % topical patch 1 patch topical DAILY #30 ea 01/18/23 01/18/23 Unknown Rx (Lidoderm) Allergies Allergy/AdvReac Type Severity Reaction Status Date / Time venlafaxine [From Effexor] AdvReac Mild ADR-Vomitin Verified 07/20/22 14:23 g sulfamethoxazole AdvReac ADR-Nausea Verified 07/20/22 14:23 [From Bactrim] trimethoprim [From Bactrim] AdvReac ADR-Nausea Verified 07/20/22 14:23 PFSH Acute PFSH: Medical History (Updated 01/18/23 @ 22:37 by Cristopher Page MD) Chronic anxiety Constipation Diffuse large B cell lymphoma History of ESBL E. coli infection Hypogammaglobulinemia History of treatment related hypogammaglobulinemia Recurrent UTI Surgical History History of bilateral breast biopsy 1994--benign per patient Hx of cataract surgery 2017--bilateral S/P tubal ligation 1989--laparoscopic Family History Father Heart disease Mother Asthma Grandmother Diabetes maternal Cervical cancer paternal Family/Other Diabetes Maternal uncles Son Thyroid condition Denies family history of Colon cancer Ovarian cancer Hyperlipidemia Breast cancer Hypertension Uterine cancer Stroke Social History Smoking and tobacco status: former smoker (smoked x 25 years) Alcohol intake: current Alcohol intake frequency: holidays/special occasions only Marital status: Current occupational status: retired Vitals/I&O/Wt Last Vital Signs Temp 98.2 F 01/18/23 15:27 Pulse 101 H 01/18/23 19:00 Resp 23 H 01/18/23 19:00 BP 129/66 01/18/23 19:00 Pulse Ox 95 01/18/23 19:00 O2 Del Method 01/18/23 15:44 Weight last 48 hrs Weight 54.431 kg Physical Exam Narrative: General: No acute distress, AO x3 HEENT: PERRLA, pupils bilaterally equal and reactive Chest: Poor respiratory effort, normal vesicular breath sounds, no added sounds, decreased air entry on the right side, tenderness on right lateral chest wall CVS: S1-S2 regular, no murmurs, no tachycardia, no gallops, no rubs Abdomen: Soft, nontender, no organomegaly, bowel sounds present Neuro: No focal deficits, no facial deformity, AO x3, power 5/5 in all limbs Data 01/18/23 15:00 01/18/23 15:00 A&P Assessment and plan (1) Syncope and collapse: Unknown cause. Seems to be chronic. Most recently today morning and few days ago associated with fall causing her to have rib fracture. Check CT head without contrast, carotid Dopplers, and echocardiogram. Admit with telemetry. Check orthostatics. Check A1c, lipid panel. No leukocytosis or possible history of fever but patient does give history of recurrent UTIs. Check urinalysis. (2) Rib fractures: Aggressive pulmonary toilet. Pain control with hydrocodone 5 mg every 6 hourly as needed Incentive spirometry. Tessalon Perles 3 times a day, Robitussin as needed Qualifiers: Encounter type: initial encounter Fracture type: closed Laterality: right Qualified Code(s): S22.41XA - Multiple fractures of ribs, right side, initial encounter for closed fracture (3) Hemothorax with pneumothorax, traumatic: Seen on CT chest. Concern for mild left mediastinal shift with large right- sided pleural effusion with some component of hemothorax. Pulmonary consulted. Possible plan for chest tube placement in the morning after chest ultrasound. Monitor hemoglobin. Pneumonia highly unlikely given the clinical picture and history. For now empirically will start patient on vancomycin and meropenem given history of ESBL infection in past. Check urine Legionella, bacterial antigen, sputum culture, respiratory viral panel, MRSA swab. If MRSA swab is negative can stop vancomycin. Can most likely can switch to oral antibiotics empirically to prevent empyema within next 24 hours if patient remains hemodynamically stable and afebrile. Concerns for a possible fluid collection around the liver on CT abdomen pelvis though not read by radiology. Will confirm with radiology in a.m. Check abdominal ultrasound stat. For now exam is benign. (4) Pleural effusion: (5) Pneumonia: Oxygen supplementation keeping saturation over 90%. Ipratropium, Xopenex every 6 hourly, budesonide twice daily. Qualifiers: Laterality: right Lung location: lower lobe of lung Pneumonia type: due to unspecified organism Qualified Code(s): J18.9 - Pneumonia, unspecified organism (6) Diffuse large b-cell lymphoma, intra-abdominal lymph nodes: Post CAR-T treatment. Follows up with oncology. (7) History of ESBL E. coli infection: (8) Fall: Associated with syncope few days ago. Plan Analgesia: [place] 5 mg every 6 hourly as needed, morphine 1 mg every 4 hourly as needed Glycemic control: Not needed. Check A1c Nutrition: Regular diet CODE STATUS: Full code PUD prophylaxis: Protonix DVT prophylaxis: SCDs, hold off on medical prophylaxis given possible hemothorax Discharge planning: Discussed in detail with the patient. She states she is too weak and scared to go home till the time her ribs heal. Discussed in detail the options of possible discharge to SNF versus home with home health. Patient is agreeable for SNF for short-term while her ribs heal and she gets stronger with physical therapy. Case management consult. PT evaluation. Admit to [facility] with telemetry This documentation was created by [employer] compressor stations superintendent software. Every effort was made to ensure accuracy of compressor stations superintendent. Any obvious errors or omissions should be clarified with the author of the document. Attestations Medical Necessity Statement*: Admission for more than 2 midnights for evaluation of recurrent syncope, right rib fracture post fall along with pneumothorax, large pleural effusion with hemothorax and High Time for a total of 70 minutes, includes reviewing past or interval history, examining/interviewing patient, placing orders, counseling patient/family/other support, updating patient/family/other support, discussing plan of care with staff, communicating with other healthcare providers, documenting encounter and coordinating care Diagnoses Syncope and collapse R55 Rib fractures S22.41XA Encounter type: initial encounter Fracture type: closed Laterality: right Hemothorax with pneumothorax, traumatic S27.2XXA Pleural effusion J90 Pneumonia J18.9 Laterality: right Lung location: lower lobe of lung Pneumonia type: due to unspecified organism Diffuse large b-cell lymphoma, intra-abdominal lymph nodes C83.33 History of ESBL E. coli infection Z86.19 Fall W19.XXXA
[2023-01-18] MEDS: cefTRIAXone 1,000 MG in sodium chloride 0.9% (plus) 50 ML 100 MG IV (20:38)
[2023-01-18] MEDS: ondansetron 2 mg/ML SDV 2 mL 4 MG IVP (20:38)
[2023-01-18 21:08] LABS: Thyroid Stimulating Hormone 1.11 uIU/mL (0.27-4.20)
--- NOTE | 2023-01-18 21:12 | USR_ITS ---
PROCEDURE INFORMATION: Exam: US Abdomen Complete Exam date and time: 01/18/2023 10:47 PM Age: 72 years old Clinical indication: Injury or trauma; Fall; Fracture, traumatic; Injury date: 01/18/2023; Injury details: Fractured right ribs; Patient HX: Syncope and collapse with right rib fractures from impact; Additional info: Fluid collection around liver post fall, hemothorax TECHNIQUE: Imaging protocol: Real-time ultrasound of the abdomen with image documentation. Complete exam. COMPARISON: CT chest abdpel w/*[id number] 01/18/2023 5:20 PM FINDINGS: Heart: Pericardial effusion incidentally noted by the technologist measuring up to 1.2 cm in thickness, however, this is not confirmed on recent CT scan. Pleural spaces: Moderate right pleural effusion. Liver: Normal. No mass. Gallbladder: Normal. No gallstones. There is no gallbladder wall thickening. Biliary ducts: Normal. No stones. No dilation. Pancreas: Visualized pancreas is unremarkable. Right kidney: Normal. No mass. No hydronephrosis. Left kidney: Normal. No mass. No hydronephrosis. Spleen: Normal. No splenomegaly. Intraperitoneal space: Negative for fluid about the liver. Aorta: Normal. No aneurysm. Inferior vena cava: Normal. US/US abdomen complete* [id number] IMPRESSION: 1. Moderate right pleural effusion. 2. Negative for fluid about the liver. 3. Pericardial effusion incidentally noted by the technologist measuring up to 1.2 cm in thickness, however, this is not confirmed on recent CT scan.
[2023-01-18 21:43] LABS: Troponin 5 6HR 12.45 ng/L (0-10)
--- NOTE | 2023-01-18 21:43 | ECG_ITS ---
[facility] Test Date: 2023-01-18 Pat Name: Kaylah Arce Department: Room: 253 Gender: Female Lion Trainer: : 1950 Requested By: Clare Pelayo Order Number: [id number] Jerilyn MD: Steve Lucia M.D. Measurements Intervals [place] Rate: 90 P: 60 CA: 84 QRS: 14 QRSD: 109 T: 65 QT: 344 QTc: 422 Interpretive Statements SINUS RHYTHM WITH SHORT CA INTERVAL Compared to ECG 01/18/2023 18:09:04 Sinus tachycardia no longer present Electronically Signed On 01-18-2023 22:51:12 PRINTED CIRCUIT PHOTOGRAPHER by Steve Lucia M.D. [email or web address] [email or web address] medical ohiohealth rehabilitation hospital - [email or web address]/store/OM/[id number]
[2023-01-18 21:49] LABS: Troponin 5 6HR Delta 2.45 ng/L (0-12)
[2023-01-18] MEDS: HYDROcodone-acetaminophen 5-325 mg Tablet 1 TAB PO (22:43)
--- NOTE | 2023-01-18 22:56 | PC.PHAR ---
Pharmacokinetic dosing service Date: 01/18/23 Time: 2055 Objective: Patient: Kaylah Arce Floor: 253-2 Age: 72 yo Serum creatinine: 1.1 mg/dL Height: 66.0 Inches Weight (kg): 54.431 Diagnosis: Relevant medical/social history: Cultures and sensitivities: Other labs: Assessment: IBW (kg): 59.30 Dosing wt(kg): 54.431 Estimated Creatinine clearance (ml/min): 40.9 CRCL method: Cockcroft and Gault using ibw(default). Drug selected: Vancomycin Loading dose (mg): 0 Vd (liters): 49.0 (factor used: 0.9 L/kg) Elijah (hr-1): 0.038 Half life (hrs): 18.24 Recommended dose: 1000 mg Interval: 24 hrs Infusion time (hrs): 1.5 Predicted peak (mcg/mL): 33.2 Predicted trough (mcg/mL): 14.12 Total body weight is being used for vancomycin dosing. Renal function is stable [ ] /unstable [ ] Recommendations: Give Vancomycin 1000 mg q 24 hrs with an expected Cpeak of 33.2 mcg/ml and an expected Ctrough of 14.12 mcg/ml Renal dosing of other antibiotics (review renal dosing of other medications and list guidelines here): Thank you for the consult, will continue to follow. Signature: Christina Lira [facility]
[2023-01-18] MEDS: meropenem 1,000 MG in sodium chloride 0.9% (plus) 50 ML 100 MG IV (23:19)
[2023-01-18] MEDS: benzonatate 100 mg Capsule PO (23:20)
[2023-01-19] VITALS (9 sets, daily range): BP systolic 76–138; BP diastolic 39–78; PULSE 69–112; RESP 15–18; TEMP 36.5–36.9; O2SAT 92–96
[2023-01-19 01:18] LABS: Adenovirus Not Detected (NOT DETECT); Chlamydia Pneumoniae Not Detected (NOT DETECT); Coronavirus 229E,HKU1,NL63,OC4 Not Detected (NOT DETECT); Human Metapneumovirus Not Detected (NOT DETECT); Human Rhinovirus/Enterovirus Detected (NOT DETECT); Influenza A Not Detected (NOT DETECT); Influenza A H1 Not Detected (NOT DETECT); Influenza A H1-2009 Not Detected (NOT DETECT); Influenza A H3 Not Detected (NOT DETECT); Influenza B Not Detected (NOT DETECT); Mycoplasma Pneumoniae Not Detected (NOT DETECT); Parainfluenza Virus Type 1 Not Detected (NOT DETECT); Parainfluenza Virus Type 2 Not Detected (NOT DETECT); Parainfluenza Virus Type 3 Not Detected (NOT DETECT); Parainfluenza Virus Type 4 Not Detected (NOT DETECT); Respiratory Syncytial Virus A Not Detected (NOT DETECT); Respiratory Syncytial Virus B Not Detected (NOT DETECT); SARS-COV-2 Not Detected (NOT DETECT)
[2023-01-19] MEDS: ALPRAZolam 0.5 mg Tablet PO ×2 (02:08→19:14)
[2023-01-19] MEDS: vancomycin 1,000 MG in sodium chloride 0.9% 250 ML 250 MG IV (02:08)
[2023-01-19 02:25] LABS: Iron 25 ug/dL (37-145); Percent Saturation 10.4 % (20-50); Total Iron Binding Capacity 239 mcg/dl; Unsaturated Iron Binding 214 ug/dL (112-347)
[2023-01-19 02:40] LABS: Procalcitonin 0.13 ng/mL (0-0.5); Vitamin B12 1713 pg/mL (232-1245)
[2023-01-19 03:21] LABS: Folate Level > 20.0 ng/mL (4.8-37.3)
[2023-01-19 05:17] LABS: Basophils % 0.8 %; Eosinophils # 0.2 10^3/uL (0.0-0.8); Eosinophils % 4.2 %; Hematocrit 24.5 % (37.0-47.0); Hemoglobin 7.8 g/dL (11.5-15.3); Lymphocytes # 0.4 10^3/uL (0.8-4.8); Lymphocytes % 11.7 %; Mean Corpuscular HGB Conc 31.8 g/dL (30.0-36.0); Mean Corpuscular Hemoglobin 33.1 pg (28.0-34.0); Mean Corpuscular Volume 103.8 fl (81-99); Mean Platelet Volume 9.2 fL (7.4-10.4); Monocytes # 0.4 10^3/uL (0.2-0.9); Monocytes % 11.5 %; Neutrophils # 2.52 10^3/uL (1.8-7.7); Neutrophils % 70.4 %; Nucleated Red Blood Cells % 0 %; Platelet Count 147 10^3/cmm (130-400); Red Blood Count 2.36 10^6/uL (4.1-5.3); Red Cell Distribution Width 11.9 % (12.1-15.1); White Blood Count 3.6 10^3/uL (4.0-10.0)
[2023-01-19 05:31] LABS: Alanine Aminotransferase 7 U/L (0-33); Albumin Level 3.1 g/dL (3.5-5.2); Alkaline Phosphatase 26 U/L (35-105); Anion Gap 15.9 (5-19); Aspartate Amino Transferase 11 U/L (0-32); Blood Urea Nitrogen 8 mg/dL (8-23); Calcium 8.4 mg/dL (8.5-10.5); Carbon Dioxide 21 mmol/L (22-29); Chloride 105 mmol/L (98-107); Chol HDL Ratio 3.04 mg/dL (0.0-4.40); Cholesterol 146 mg/dL (0-200); Globulin 1.8 g/dL (1.3-4.6); Glomerular Filtration Rate 61.9 mL/min (90-130); Glucose 97 mg/dL (65-115); HDL Cholesterol 48 mg/dL (60-100); LDL Cholesterol Calculated 83 mg/dL (50-129); Magnesium 1.9 mg/dL (1.7-2.3); Osmolality Calculated 284 mOsm/kg (285-295); Phosphorus 3.3 mg/dL (2.5-4.5); Potassium 3.9 mmol/L (3.5-5.1); Sodium 138 mmol/L (136-145); Total Bilirubin 0.2 mg/dL (0.15-1.2); Total Protein 4.9 g/dL (6.6-8.7); Triglycerides 73 mg/dL (0-150); VLDL Cholestrol Calculation 15 mg/dL (0-30)
[2023-01-19 05:47] LABS: Estmated Average Glucose 88; Hemoglobin A1C 4.7 % (4.0-6.0)
--- NOTE | 2023-01-19 06:00 | XRR_ITS ---
PROCEDURE INFORMATION: Exam: XR Chest Exam date and time: 01/19/2023 7:01 AM Age: 72 years old Clinical indication: Condition or disease; Other: Covid TECHNIQUE: Imaging protocol: Radiologic exam of the chest. Views: 1 view. COMPARISON: CT chest sumayapel w/*[id number] 01/18/2023 5:20 PM FINDINGS: Lungs: Reticular changes of pulmonary interstitium. Emphysematous lung disease changes. Patchy parenchymal airspace opacities at right lung base. Pleural spaces: Small right pneumothorax. Moderate to large sized right pleural effusion. Heart/Mediastinum: Unremarkable. No cardiomegaly. Diaphragm: Elevated right diaphragm. Bones/joints: Unremarkable. Soft tissues: Small volume of right chest wall soft tissue air. XR/XR chest 1V portable [id number] IMPRESSION: 1. Stable exam of the chest since comparison. 2. Residual right chest hydropneumothorax. Continued radiographic surveillance recommended.
--- NOTE | 2023-01-19 07:32 | P.CONIM_ITS ---
Providers/Reason For Consult Consulting Physician/Specialty*: Wallace Monzon MD/ Pulmonary Critical Care Reason for Consult*: Right hemothorax/small apical pneumo-s/p trauma Requesting Physician: Dr. Radu GANN/MORGAN River? 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 She reported a fall few days ago as well which caused her to fall on 01/13/2023 since then having right-sided chest pain, worsening when she takes deep breath and cough. Since then she has been feeling extremely weak along with poor oral intake and dizziness on standing up from sitting position. She denied any fever, nausea, vomiting, diarrhea, dysuria. Patient is hemodynamically stable.CT chest revealed tiny right-sided apical pneumothorax 14.4 mm separation between lung and pleura with mild leftward mediastinal shift. Large right pleural effusion containing suspected blood products. Right lower lobe atelectasis. Subcutaneous emphysema right chest. Chest x-ray revealed right posterior seventh, eighth and ninth mildly displaced rib fractures. Patient is saturating 93% on room air. Admission H&H 09/26.6. Admitted for observation as well as work-up for syncope. Pulmonary consulted for right pneumothorax and pleural effusion. Today morning chest x-ray showed residual right chest hydropneumothorax with no significant worsening. H&H today morning 7.8/24.5 but vitals remained stable and patient saturating 93% on room air. Respiratory viral panel positive for enterovirus. Patient at bedside complaining of right-sided chest discomfort and difficulty taking deep breaths Complained of dizziness for several years and weakness Other labs and imaging reviewed Review of Systems General: Reports: 10 or more systems reviewed and unremarkable except in HPI and below Medications/Allergies Home Medications Medication Instructions Recorded Confirmed Last Taken Type znmppzf-cxdjetleeuoho-mkjftyss 250 1 tab PO Q6H PRN 06/10/20 01/18/23 Unknown History mg-250 mg-65 mg tablet (Excedrin Extra Strength) ascorbic acid (vitamin C) 500 mg 2,000 mg PO DAILY 09/27/21 01/18/23 Unknown History capsule lansoprazole 30 mg capsule,delayed 30 mg PO DAILY PRN 09/27/21 01/18/23 Unknown History release (Prevacid) albuterol sulfate 90 mcg/actuation 2 inh inhalation Q6H PRN shortness 03/24/22 01/18/23 Unknown Rx aerosol inhaler of breath or wheezing #8 grams cholecalciferol (vitamin D3) 25 25 mcg PO DAILY PRN 07/20/22 01/18/23 Unknown History mcg (1,000 unit) capsule alprazolam 0.5 mg tablet 0.5 mg PO BID PRN anxiety #60 tabs 12/15/22 01/18/23 Unknown Rx hydrocodone 5 mg-acetaminophen 325 1 tab PO Q8H PRN pain 2 weeks #30 01/18/23 01/18/23 Unknown Rx mg tablet tabs cyanocobalamin (vitamin B-12) 50 50 mcg PO DAILY 01/19/23 01/19/23 Unknown History mcg tablet (Vitamin B-12) Allergies Allergy/AdvReac Type Severity Reaction Status Date / Time venlafaxine [From Effexor] AdvReac Mild ADR-Vomitin Verified 01/19/23 08:52 g sulfamethoxazole AdvReac ADR-Nausea Verified 01/19/23 08:52 [From Bactrim] trimethoprim [From Bactrim] AdvReac ADR-Nausea Verified 01/19/23 08:52 Current Medications Generic Name Dose Route Start Last Admin Trade Name Freq PRN Reason Stop Dose Admin Albuterol Sulfate 2.5 mg 01/19/23 02:00 01/19/23 01:57 Albuterol 2.5 Mg/3 Ml Neb INHALATION Not Given Q6H.RESP REBEKAH Alprazolam 0.5 mg 01/18/23 22:29 01/19/23 02:08 Alprazolam 0.5 Mg Tablet PO 0.5 mg BID PRN Administration anxiety Benzonatate 100 mg 01/18/23 22:29 01/18/23 23:20 Benzonatate 100 Mg Capsule PO 100 mg TID REBEKAH Administration Meropenem 1,000 mg/ Sodium 50 mls @ 100 mls/hr 01/18/23 23:00 01/19/23 00:28 Chloride IV Infused Q8H REBEKAH Infusion Protocol Vancomycin HCl 1,000 mg/ 250 mls @ 250 mls/hr 01/19/23 02:00 01/19/23 03:21 Sodium Chloride IV Infused Q24H REBEKAH Infusion Ipratropium [place] 2.5 mg 01/19/23 02:00 01/19/23 01:58 Ipratropium 0.5 Mg/2.5 Ml Neb INHALATION Not Given Q6H.RESP REBEKAH PFSH Acute PFSH: Medical History Chronic anxiety Constipation Diffuse large B cell lymphoma History of ESBL E. coli infection Hypogammaglobulinemia History of treatment related hypogammaglobulinemia Recurrent UTI Surgical History History of bilateral breast biopsy 1994--benign per patient Hx of cataract surgery 2017--bilateral S/P tubal ligation 1989--laparoscopic Family History Father Heart disease Mother Asthma Grandmother Diabetes maternal Cervical cancer paternal Family/Other Diabetes Maternal uncles Son Thyroid condition Denies family history of Colon cancer Ovarian cancer Hyperlipidemia Breast cancer Hypertension Uterine cancer Stroke Social History Smoking and tobacco status: former smoker (smoked x 25 years) Alcohol intake: current Alcohol intake frequency: holidays/special occasions only Marital status: Current occupational status: retired Vitals/I&O/Wt Last Vital Signs Temp 98.3 F 01/19/23 04:00 Pulse 79 01/19/23 04:00 Resp 18 01/19/23 04:00 BP 112/52 01/19/23 04:00 Pulse Ox 92 01/19/23 04:00 O2 Del Method 01/19/23 04:00 01/18/23 01/19/23 01/19/23 22:59 06:59 14:59 Intake Total 50 / 50 540 / 590 Balance 50 / 50 540 / 590 Weight last 48 hrs Weight 120 lb 8 oz Weight 120 lb Physical Exam Narrative: General: alert, NAD HEENT: conj clear, EOMI, PERRL, mmm, Neck: supple, no meningismus Heme: no cervical LAP Respiratory: Inspection: No visible deformity of the chest wall Palpation: Trachea is mildly deviated to the right, bilateral symmetric expansion, tenderness over right chest wall Percussion: Dullness on percussion on right lower lung zone Auscultation: Reduced breath sounds right lower lung zone Cardiovascular: rrr, nl s1s2, no mrg Abdomen: soft, nt, nd, no r/g, bs+ Extremities: pulses +, no edema, no c/c : no CVA tenderness Skin: intact, no rash MSK: no back or neck pain Neurologic: grossly intact Data 01/19/23 04:56 01/19/23 04:56 Other Labs: Radiology Impressions Chest/Abdomen/Pelvis CT 01/18/23 15:43 IMPRESSION: 1. Right-sided pneumothorax with 14.4 mm separation between the lung and pleura with some mild leftward mediastinal shift. 2. Large right pleural effusion containing some suspected blood products. 3. Right lower lobe atelectasis versus infiltrate. 4. Subcutaneous emphysema over the right chest. 5. Same-day chest x-ray demonstrated several right rib fractures, however, these are not well characterized on this exam as portions of the ribs extend posteriorly off the field of view, however, at least a right posterior 9th rib fracture is suspected. IMPRESSION: 1. Negative for traumatic injury to the abdomen or pelvis 2. Constipation. THIS REPORT CONTAINS FINDINGS THAT MAY BE CRITICAL TO PATIENT CARE. The findings were verbally communicated via telephone conference with Dr. Liriano at 6:33 PM [employer]OCATION SERVICES SPECIALIST on 01/18/2023. The findings were acknowledged and understood. Head CT 01/18/23 19:28 IMPRESSION: Negative for intracranial hemorrhage or mass effect. Carotid Doppler Study 01/18/23 20:22 IMPRESSION: 1. Scattered atherosclerotic plaque throughout the carotid arterial systems. 2. Right internal carotid artery peak systolic velocity of 133 cm/s consistent with less than 50% stenosis. 3. Left internal carotid artery peak systolic velocity of 214 cm/s consistent with 50-75% stenosis. REFERENCES: SRU CRITERIA. The degree of internal carotid artery stenosis is based on criteria defined by the Society of Radiologists in Ultrasound (SRU). Normal is no stenosis. Mild is less than 50% stenosis. Moderate is 50-69% stenosis. Severe is greater than 69% stenosis to near occlusion. Near occlusion is a markedly narrowed lumen. Total occlusion is no detectable patent lumen. Abdomen Ultrasound 01/18/23 21:12 IMPRESSION: 1. Moderate right pleural effusion. 2. Negative for fluid about the liver. 3. Pericardial effusion incidentally noted by the technologist measuring up to 1.2 cm in thickness, however, this is not confirmed on recent CT scan. Chest X-Ray 01/19/23 06:00 IMPRESSION: 1. Stable exam of the chest since comparison. 2. Residual right chest hydropneumothorax. Continued radiographic surveillance recommended. Laboratory Results WBC 5.3 10^3/uL (4.0-10.0) 01/19/23 14:05 RBC 2.42 10^6/uL (4.1-5.3) L 01/19/23 14:05 Hgb 8.1 g/dL (11.5-15.3) L 01/19/23 14:05 Hct 24.6 % (37.0-47.0) L 01/19/23 14:05 MCV 101.7 fl (81-99) H 01/19/23 14:05 MCH 33.5 pg (28.0-34.0) 01/19/23 14:05 MCHC 32.9 g/dL (30.0-36.0) 01/19/23 14:05 RDW 12.1 % (12.1-15.1) 01/19/23 14:05 Plt Count 181 10^3/cmm (130-400) 01/19/23 14:05 MPV 9.3 fL (7.4-10.4) 01/19/23 14:05 Neut % (Auto) 68.7 % 01/19/23 14:05 Lymph % (Auto) 14.6 % 01/19/23 14:05 Crowley % (Auto) 10.8 % 01/19/23 14:05 Eos % (Auto) 4.2 % 01/19/23 14:05 Baso % (Auto) 0.6 % 01/19/23 14:05 Neut # (Auto) 3.62 10^3/uL (1.8-7.7) 01/19/23 14:05 Lymph # (Auto) 0.8 10^3/uL (0.8-4.8) 01/19/23 14:05 Crowley # (Auto) 0.6 10^3/uL (0.2-0.9) 01/19/23 14:05 Eos # (Auto) 0.2 10^3/uL (0.0-0.8) 01/19/23 14:05 Baso # (Auto) 0.0 10^3/uL (0.0-0.1) 01/19/23 14:05 Nucleated RBC % (auto) 0 % 01/19/23 14:05 Nucleated RBCs # 0.0 /100WBC 01/19/23 14:05 Sodium 138 mmol/L (136-145) 01/19/23 04:56 Potassium 3.9 mmol/L (3.5-5.1) 01/19/23 04:56 Chloride 105 mmol/L (98-107) 01/19/23 04:56 Carbon Dioxide 21 mmol/L (22-29) L 01/19/23 04:56 Anion Gap 15.9 (5-19) 01/19/23 04:56 BUN 8 mg/dL (8-23) 01/19/23 04:56 Creatinine 0.9 mg/dL (0.5-0.9) 01/19/23 04:56 GFR Calculation 61.9 mL/min (90-130) L 01/19/23 04:56 Glucose 97 mg/dL (65-115) 01/19/23 04:56 Estimat Average Glucose 88 01/19/23 04:56 Hemoglobin A1c 4.7 % (4.0-6.0) 01/19/23 04:56 Calculated Osmolality 284 mOsm/kg (285-295) L 01/19/23 04:56 Calcium 8.4 mg/dL (8.5-10.5) L 01/19/23 04:56 Phosphorus 3.3 mg/dL (2.5-4.5) 01/19/23 04:56 Magnesium 1.9 mg/dL (1.7-2.3) 01/19/23 04:56 Iron 25 ug/dL (37-145) L 01/18/23 15:00 TIBC 239 mcg/dl 01/18/23 15:00 % Saturation 10.4 % (20-50) L 01/18/23 15:00 Unsat Iron Binding 214 ug/dL (112-347) 01/18/23 15:00 Total Bilirubin 0.2 mg/dL (0.15-1.2) 01/19/23 04:56 AST 11 U/L (0-32) 01/19/23 04:56 ALT 7 U/L (0-33) 01/19/23 04:56 Alkaline Phosphatase 26 U/L (35-105) L 01/19/23 04:56 Troponin T Baseline 10 ng/L (0-10) 01/18/23 15:00 Troponin T 120 Minute 10.81 ng/L (0-10) H 01/18/23 18:23 Delta Troponin T 0.81 ABS# (0-10) 01/18/23 18:23 Troponin T Hi Sens 6Hr 12.45 ng/L (0-10) H 01/18/23 21:07 Troponin T Hi Sens 6Hr Delta 2.45 ng/L (0-12) 01/18/23 21:07 Total Protein 4.9 g/dL (6.6-8.7) L 01/19/23 04:56 Albumin 3.1 g/dL (3.5-5.2) L 01/19/23 04:56 Globulin 1.8 g/dL (1.3-4.6) 01/19/23 04:56 Triglycerides 73 mg/dL (0-150) 01/19/23 04:56 Cholesterol 146 mg/dL (0-200) 01/19/23 04:56 LDL Cholesterol, Calc 83 mg/dL (50-129) 01/19/23 04:56 Total VLDL Cholesterol 15 mg/dL (0-30) 01/19/23 04:56 HDL Cholesterol 48 mg/dL (60-100) L 01/19/23 04:56 Cholesterol/HDL Ratio 3.04 mg/dL (0.0-4.40) 01/19/23 04:56 Vitamin B12 1713 pg/mL (232-1245) H 01/18/23 15:00 Folate > 20.0 ng/mL (4.8-37.3) 01/18/23 15:00 Procalcitonin 0.13 ng/mL (0-0.5) 01/18/23 15:00 TSH 1.11 uIU/mL (0.27-4.20) 01/18/23 15:00 Urine Color Yellow (Yellow) 01/19/23 04:11 Urine Appearance Clear (CLEAR) 01/19/23 04:11 Urine pH 6.5 (5-7) 01/19/23 04:11 Ur Specific [place] 1.005 (1.005-1.030) 01/19/23 04:11 Urine Protein Trace (Negative) 01/19/23 04:11 Urine Glucose (UA) Norm (Normal) 01/19/23 04:11 Urine Ketones 1+ (Negative) H 01/19/23 04:11 Urine Blood Neg (Negative) 01/19/23 04:11 Urine Nitrate Negative (Negative) 01/19/23 04:11 Urine Bilirubin Neg (Negative) 01/19/23 04:11 Urine Urobilinogen Neg mg/dL (Negative) 01/19/23 04:11 Ur Leukocyte Esterase Negative (Negative) 01/19/23 04:11 Urine RBC Rare /hpf (0-2) 01/19/23 04:11 Urine WBC None /hpf (0-5) 01/19/23 04:11 Ur Squamous Epith Cells Rare /hpf (0-5) 01/19/23 04:11 Amorphous Sediment Not Reportable 01/19/23 04:11 Urine Bacteria None /hpf (NONE) 01/19/23 04:11 Nasal Influ A H1 2008 PCR Not detected (NOT DETECT) 01/18/23 21:50 Adenovirus (PCR) Not detected (NOT DETECT) 01/18/23 21:50 C. pneumoniae DNA (PCR) Not detected (NOT DETECT) 01/18/23 21:50 Coronavirus 229E (PCR) Not detected (NOT DETECT) 01/18/23 21:50 Human Metapneumovir PCR Not detected (NOT DETECT) 01/18/23 21:50 Influenza A (H1) PCR Not detected (NOT DETECT) 01/18/23 21:50 Influenza A (H3) PCR Not detected (NOT DETECT) 01/18/23 21:50 Influenza Type A (PCR) Not detected (NOT DETECT) 01/18/23 21:50 Influenza Type B (PCR) Not detected (NOT DETECT) 01/18/23 21:50 M. pneumoniae (PCR) Not detected (NOT DETECT) 01/18/23 21:50 Parainfluenza 1 (PCR) Not detected (NOT DETECT) 01/18/23 21:50 Parainfluenza 2 (PCR) Not detected (NOT DETECT) 01/18/23 21:50 Parainfluenza 3 (PCR) Not detected (NOT DETECT) 01/18/23 21:50 Parainfluenza 4 (PCR) Not detected (NOT DETECT) 01/18/23 21:50 RSV Type A (PCR) Not detected (NOT DETECT) 01/18/23 21:50 RSV Type B (PCR) Not detected (NOT DETECT) 01/18/23 21:50 Entero/Rhino (PCR) Detected (NOT DETECT) A 01/18/23 21:50 SARS-CoV-2 (PCR) Not detected (NOT DETECT) 01/18/23 21:50 Micro: Microbiology 01/18/23 21:07 Blood Culture - Preliminary Blood SPECIMEN COLLECTED 01/18/23 21:07 Blood Culture - Preliminary Blood SPECIMEN COLLECTED A&P Assessment and plan (1) Hemothorax with pneumothorax, traumatic: (2) Fall: (3) Pneumonia: Qualifiers: Laterality: right Lung location: lower lobe of lung Pneumonia type: due to unspecified organism Qualified Code(s): J18.9 - Pneumonia, unspecified organism (4) Rib fractures: Qualifiers: Encounter type: initial encounter Fracture type: closed Laterality: right Qualified Code(s): S22.41XA - Multiple fractures of ribs, right side, initial encounter for closed fracture Plan #Moderate right hemothorax with clotted blood and small right apical pneumothorax-s/p secondary to fall 6 days ago-with rib fractures -Bedside ultrasound showed large clot in the pleural cavity;Insufficient mobile fluid for thoracentesis -also confirmed by radiologist -Patient is hemodynamically stable-normal heart rate, saturating 93% on room air -H&H on admission 09/26-today morning 7.8 with stable vitals-suspect hemoconcentration on admission-we will continue to monitor H&H and transfuse if H&H < 06/16 -If this clot remains undrained it may compromise ventilation and cause infection and pulmonary fibrosis in future -I have recommended CT surgery for VATS and tube thoracostomy to completely evacuate hemothorax and facilitate lung expansion and ventilation-unfortunately we do not have CT surgeon on-call; currently awaiting response from [facility] -Encourage pulmonary toileting -Agree with antibiotic coverage -Russell as needed for pain; morphine as needed for pain -Monitor H&H Medical condition and management plan explained to patient and she verbalized understanding with the plan and agreed for transfer to [place] if necessary Recommendations conveyed to hospitalist, RN taking care of the patient Consult Attestations Medical Necessity Statement: She needs CT surgery evaluation Time Spent in Patient Care: Greater than 35 minutes (>than 50% of time spent in counselling and/or direct pt care on unit) . Coding Level of Care Code Critical Care >/= 30 minutes Critical care time (in minutes): 53 The high probability of a clinically significant, sudden or life threatening deterioration, as referenced in this documentation, required my full and direct attention, intervention and personal management. The critical care time shown is in addition to time spent performing any reported separately billable procedures and includes the following: [x] Data and vital sign review and interpretation [x ] Patient assessment, examination and intervention [x] Medication orders and management [x] Patient/Family updates as able [x] Care Coordination and Documentation. Diagnoses Hemothorax with pneumothorax, traumatic S27.2XXA Fall W19.XXXA Pneumonia J18.9 Laterality: right Lung location: lower lobe of lung Pneumonia type: due to unspecified organism Rib fractures S22.41XA Encounter type: initial encounter Fracture type: closed Laterality: right Time Spent (min) 53
[2023-01-19] MEDS: PARoxetine 20 mg Tablet 10 MG PO (07:40)
[2023-01-19] MEDS: ferrous gluconate 324 mg Tablet PO ×2 (07:40→18:42)
[2023-01-19] MEDS: docusate sodium 100 mg Capsule PO ×2 (07:41→18:44)
[2023-01-19] MEDS: benzonatate 100 mg Capsule PO ×2 (07:41→14:54)
[2023-01-19] MEDS: pantoprazole DR 40 mg Tablet PO (07:41)
[2023-01-19] MEDS: HYDROcodone-acetaminophen 5-325 mg Tablet 1 TAB PO ×3 (07:42→18:44)
[2023-01-19] MEDS: ondansetron 2 mg/ML SDV 2 mL 4 MG IVP ×3 (08:24→19:25)
--- NOTE | 2023-01-19 08:44 | US_ITS ---
WS: [id number] Ultrasound RIGHT chest. HISTORY: Evaluate pleural fluid. No significant mobile fluid is identified within either the LEFT or RIGHT chest. There is dense heter ogeneous material within the RIGHT thorax consistent with blood clot. US/US chest [id number] IMPRESSION: Hemothorax within the RIGHT pleural space. Insufficient mobile fluid for thorac entesis.
[2023-01-19] MEDS: meropenem 1,000 MG in sodium chloride 0.9% (plus) 50 ML 100 MG IV (09:00)
[2023-01-19 11:55] LABS: Add Urine Culture? No; Add Urine Microscopic? YES; Bilirubin Urine Neg (Negative); Blood Urine Neg (Negative); Glucose Urine UA Norm (Normal); Ketones Urine 1+ (Negative); Leukocyte Esterase Urine Negative (Negative); Nitrate Urine Negative (Negative); Protein Urine Trace (Negative); RBC Urine RARE /hpf (0-2); Specific Gravity, Urine 1.005 (1.005-1.030); Squamous Epithelial Cell Urine RARE /hpf (0-5); Urine Appearance Clear (CLEAR); Urine Color Yellow (Yellow); Urobilinogen Urine Neg (Negative); pH Urine 6.5 (5-7)
--- NOTE | 2023-01-19 13:01 | PC.OT ---
OT ORDERS RECEIVED. PATIENT TO HAVE CHEST TUBE PLACED TODAY;HOLD AND ATTEMPT TOMORROW.
[2023-01-19 14:13] LABS: Basophils % 0.6 %; Eosinophils # 0.2 10^3/uL (0.0-0.8); Eosinophils % 4.2 %; Hematocrit 24.6 % (37.0-47.0); Hemoglobin 8.1 g/dL (11.5-15.3); Lymphocytes # 0.8 10^3/uL (0.8-4.8); Lymphocytes % 14.6 %; Mean Corpuscular HGB Conc 32.9 g/dL (30.0-36.0); Mean Corpuscular Hemoglobin 33.5 pg (28.0-34.0); Mean Corpuscular Volume 101.7 fl (81-99); Mean Platelet Volume 9.3 fL (7.4-10.4); Monocytes # 0.6 10^3/uL (0.2-0.9); Monocytes % 10.8 %; Neutrophils # 3.62 10^3/uL (1.8-7.7); Neutrophils % 68.7 %; Nucleated Red Blood Cells % 0 %; Platelet Count 181 10^3/cmm (130-400); Red Blood Count 2.42 10^6/uL (4.1-5.3); Red Cell Distribution Width 12.1 % (12.1-15.1); White Blood Count 5.3 10^3/uL (4.0-10.0)
--- NOTE | 2023-01-19 16:50 | P.PN_ITS ---
Subjective Subjective: Attempted thoracentesis today by IR, unsuccessful attempt as mainly clotted blood. c/o discomfort right side of chest. No syncopal episodes since admission. Medications: Reviewed: Yes Vitals/I&O/Wt Last Vital Signs Temp 98.5 F 01/19/23 16:00 Pulse 80 01/19/23 16:00 Resp 17 01/19/23 16:00 BP 135/70 01/19/23 16:00 Pulse Ox 92 01/19/23 16:00 O2 Del Method 01/19/23 08:00 01/19/23 01/19/23 01/19/23 06:59 14:59 22:59 Intake Total 540 / 590 120 / 120 Balance 540 / 590 120 / 120 Weight last 48 hrs Weight 54.658 kg Weight 54.431 kg Physical Exam Narrative: General: No acute distress, AO x3 HEENT: PERRLA, pupils bilaterally equal and reactive, pallors not present Chest: Normal vesicular breath sounds, no added sounds, equal good air entry bilaterally CVS: S1-S2 regular, no murmurs, no tachycardia, no gallops, no rubs Abdomen: Soft, nontender, no organomegaly, bowel sounds present Neuro: No focal deficits, no facial deformity, AO x3, power 5/5 in all limbs Data 01/19/23 14:05 01/19/23 04:56 Micro: Microbiology 01/19/23 04:11 Bacterial Antigens - Final Urine Kidney 01/19/23 04:11 Legionella Urinary Antigen - Final Urine,Voided 01/18/23 21:07 Blood Culture - Preliminary Blood SPECIMEN COLLECTED 01/18/23 21:07 Blood Culture - Preliminary Blood SPECIMEN COLLECTED A&P Assessment and plan (1) Syncope and collapse: Patient has had recurrent episodes of syncope since childhood. It appears there has been no cause that has been able to be a certain. Patient thinks this is because of childhood polio. Uncertain if she has some kind of autonomic dysfunction. Seems to be chronic. Most recently she fell 6 days and then again 1 day prior to admission. Carotid duplex showing right ICA with 50% stenosis, left ICA with 50 to 75% stenosis. Will likely need outpatient follow- up for this. Negative CT head for intracranial bleeding. no events on telemetry. no orthostatic drop in BP. negative urinalysis for UTI. (2) Rib fractures: involves right 7th, 8th and 9th ribs Aggressive pulmonary toilet. Pain control with hydrocodone 5 mg every 6 hourly as needed Incentive spirometry Tessalon Perles 3 times a day, Robitussin as needed Qualifiers: Encounter type: initial encounter Fracture type: closed Laterality: right Qualified Code(s): S22.41XA - Multiple fractures of ribs, right side, initial encounter for closed fracture (3) Hemothorax with pneumothorax, traumatic: Seen on CT chest. Pulmonary consulted. Appreciate recommendations. Unable to perform thoracentesis this morning as collection is clotted. Pulmonology recommends transfer for VATS. Monitor hemoglobin trended 10 >> 8.1 . Pneumonia highly unlikely given the clinical picture and history of trauma. D/c abx. (4) Pleural effusion: (5) Pneumonia: Oxygen supplementation keeping saturation over 90%. Ipratropium, Xopenex every 6 hourly, budesonide twice daily. Qualifiers: Laterality: right Lung location: lower lobe of lung Pneumonia type: due to unspecified organism Qualified Code(s): J18.9 - Pneumonia, unspecified organism (6) Diffuse large b-cell lymphoma, intra-abdominal lymph nodes: Post CAR-T treatment at [facility]. Follows up with oncology. Currently in remission. (7) History of ESBL E. coli infection: (8) Fall: Associated with syncope few days ago. Plan Analgesia: [place] 5 mg every 6 hourly as needed, morphine 1 mg every 4 hourly as needed Glycemic control: Not needed. Check A1c Nutrition: Regular diet CODE STATUS: Full code PUD prophylaxis: Protonix DVT prophylaxis: SCDs, hold off on medical prophylaxis given hemothorax This documentation was created by [employer] logistics system engineer software. Every effort was made to ensure accuracy of logistics system engineer. Any obvious errors or omissions should be clarified with the author of the document. Attestations Medical Necessity Statement*: needs care for hydropnuemothorax. attempting to arramge transfer for VATS Coding Level of Care Code 60673 High Time for a total of 75 minutes, includes reviewing past or interval history, examining/interviewing patient, placing orders, counseling patient/family/other support, discussing plan of care with staff, communicating with other healthcare providers, documenting encounter and coordinating care Other Coding Information Prolonged care (total time indicated above or notated here) transfer attempts at higher center, reveiwing data, coordinating care Diagnoses Syncope and collapse R55 Rib fractures S22.41XA Encounter type: initial encounter Fracture type: closed Laterality: right Hemothorax with pneumothorax, traumatic S27.2XXA Pleural effusion J90 Pneumonia J18.9 Laterality: right Lung location: lower lobe of lung Pneumonia type: due to unspecified organism Diffuse large b-cell lymphoma, intra-abdominal lymph nodes C83.33 History of ESBL E. coli infection Z86.19 Fall W19.XXXA
== END 2023-01-19 19:30 | disposition short-term general hospital (02) | DRG 200 ==
LOC: ER 19:38 → MEDSURG 23:15
PROVIDERS: Internal Medicine Pulmonary Disease; Physician Assistant; Admitting Provider Student in an Organized Health Care Education/Training Program; Emergency Provider Nurse Practitioner Family; PCP Family Medicine; Visit Provider Student in an Organized Health Care Education/Training Program
DX: S27.2XXA Traumatic hemopneumothorax, initial encounter (principal); J91.8 Pleural effusion in other conditions classified elsewhere; S22.41XA Multiple fractures of ribs, right side, initial encounter for closed fracture; T79.7XXA Traumatic subcutaneous emphysema, initial encounter; W18.39XA Other fall on same level, initial encounter; Y92.019 Unspecified place in single-family (private) house as the place of occurrence of the external cause; R55 Syncope and collapse; B34.1 Enterovirus infection, unspecified; I65.23 Occlusion and stenosis of bilateral carotid arteries; Z87.440 Personal history of urinary (tract) infections; Z87.891 Personal history of nicotine dependence; Z85.72 Personal history of non-Hodgkin lymphomas; Z92.850 Personal history of Chimeric Antigen Receptor T-cell therapy; Z86.12 Personal history of poliomyelitis
CPT/HCPCS: 36415; 70450; 71045; 71260; 74177; 76604; 76700; 80053; 80061; 81001; 82607; 82746; 83036; 83540; 83550; 83735; 84100; 84145; 84443; 84484; 85025; 86403; 87040; 87449; 87486; 87581; 87633; 93005; 93306; 93880; 94664; 96365; 96375; 99285; J0696; J2185; J2405; J3370; J7050; J7613; J7626; J7644; Q9967

== ENCOUNTER 2023-02-09 16:28 | Emergency (ER) | payer MEDICARE, OTHER, SELFPAY ==
[2023-02-09 16:32] VITALS: BP 195/79; PULSE 95; RESP 18; TEMP 36.4; O2SAT 96; BMI 17.1
--- NOTE | 2023-02-09 17:04 | XRR_ITS ---
PROCEDURE INFORMATION: Exam: XR Abdomen Exam date and time: 02/09/2023 5:32 PM Age: 72 years old Clinical indication: Abdominal pain; Prior surgery; Surgery date: <1 month; Surgery type: Patient states she had 4 liters of blood drained 2 weeks ago off lung. Also states broken ribs; Additional info: N/v TECHNIQUE: Imaging protocol: Radiologic exam of the abdomen. Views: Frontal supine view of the abdomen. 1 View. COMPARISON: CT chest abdpel w/*[id number] 01/18/2023 5:20 PM FINDINGS: Gastrointestinal tract: Normal. No bowel dilation. Bones/joints: Leftward lumbar curvature. XR/XR abdomen 1V* [id number] IMPRESSION: No acute findings.
--- NOTE | 2023-02-09 17:06 | ED_ITS ---
HPI - Nausea/Vomiting/Diarrhea General: Chief complaint: Nausea/Vomiting/Diarrhea Stated complaint: n/v Time Seen by Provider: 02/09/23 16:51 History of Present Illness: Patient presents to the ER today with complaints of nausea and vomiting x2 days. Patient states she was just released from [facility] last Monday for a stay related to a fractured rib that punctured her lungs. Patient states during last 2 days she cannot keep anything down at all. Patient denies abdominal pain chest pain or shortness of breath at this time MD elicited complaint: nausea and vomiting Onset (ago): day(s) (2 days) Description of vomiting: watery Associated nausea: Yes Associated abdominal pain: No Exacerbating factors: eating Relieving factors: none Associated symtoms: Reports anxiety and nausea; Denies change in vision, chest pain, headache(s) or palpitations Review of Systems General: Reports: 10 or more systems reviewed and unremarkable except in HPI and below Const: Denies: fever(s), chills or body aches Eyes: Denies: change in vision ENMT: Denies: throat pain or odynophagia Card: Denies: chest pain, palpitations or irregular heart rhythm Resp: Denies: dyspnea, productive cough or non-productive cough GI: Reports: nausea and vomiting; Denies: abdominal pain : Denies: flank pain or difficulty voiding Musc: Denies: neck pain or back pain Skin/Breast: Denies: rash, pruritus or erythema Neuro: Denies: headache(s), numbness in extremities or weakness in extremities Psych: Reports: anxiety; Denies: depression Endo: Denies: polyuria or polydipsia [place]/Lymph: Denies: easy bruising or easy bleeding All/Imm: Denies: urticaria or throat swelling PFSH ED PFSH: Medical History Chronic anxiety Constipation Diffuse large B cell lymphoma History of ESBL E. coli infection Hypogammaglobulinemia History of treatment related hypogammaglobulinemia Recurrent UTI Surgical History History of bilateral breast biopsy 1994--benign per patient Hx of cataract surgery 2017--bilateral S/P tubal ligation 1989--laparoscopic Family History Father Heart disease Mother Asthma Grandmother Diabetes maternal Cervical cancer paternal Family/Other Diabetes Maternal uncles Son Thyroid condition Denies family history of Colon cancer Ovarian cancer Hyperlipidemia Breast cancer Hypertension Uterine cancer Stroke Social History Smoking and tobacco status: former smoker (smoked x 25 years) Alcohol intake: current Alcohol intake frequency: holidays/special occasions only Marital status: Current occupational status: retired Physical Exam Const: COMMON NORMALS: average body habitus, patient oriented x3, no limitations, healthy appearing and alert GENERAL APPEARANCE: anxious HENMT: COMMON NORMALS: normocephalic, atraumatic, hearing grossly normal bilaterally and Normal nasal mucous membranes and turbinates present HEAD & SCALP: normocephalic and atraumatic NOSE: Normal nasal mucous membranes and turbinates present Neck/C-Spine: COMMON NORMALS: full ROM, no lymphadenopathy, supple, no JVD and Thyroid normal THYROID: Thyroid normal Chest: COMMONS NORMALS: normal inspection of the chest and normal palpation of entire chest wall Resp: COMMON NORMALS: normal respiratory effort, No retractions, No use of accessory muscles and clear to auscultation bilaterally AUSCULTATION: clear to auscultation bilaterally Cardio: COMMON NORMALS: no JVD, regular rate, regular rhythm, S1 normal heart sound present, S2 normal heart sound present and No gallops present (Cardio) RATE: regular rate RHYTHM: regular rhythm HEART SOUNDS: S1 normal heart sound present and S2 normal heart sound present GI: COMMON NORMALS: Normal to inspection, nondistended, normoactive bowel sounds present, Soft to palpation, non-tender and No hepatosplenomegaly present PALPATION: Yes Soft to palpation and Yes No hepatosplenomegaly present Neuro: COMMON NORMALS: patient oriented x3, CN's II-XII intact bilaterally, moves all extremities and no focal motor deficits SENSORIUM/ORIENTATION: Yes alert Course Vital Signs: Vital signs: Vital Signs Temperature 97.5 F L 02/09/23 16:32 Pulse Rate 88 02/09/23 19:48 Respiratory Rate 18 02/09/23 19:48 Blood Pressure 195/79 02/09/23 16:32 Pulse Oximetry 99 02/09/23 19:48 Oxygen Delivery Me thod 02/09/23 18:01 MDM - Nausea/Vomiting/Diarrhea Medical Decision Making Patient presents to the ER with complaints of nausea vomiting. Patient has tried her Zofran at home. With no relief. Patient had recent hospitalization along with intermediate stay for broken ribs and chest tube placement. Patient did fine while she was in the intermediate when she went home this uncontrolled nausea vomiting started. Upon physical exam of the patient as well as review of the labs and x-rays, is felt patient does not have anything acute going on other than nausea and vomiting. Patient was bolused with 1 L normal saline in ER and given Reglan per her IV which significantly helped the nausea to the point patient tolerated Jell-O with no emesis. Patient will be discharged home on Reglan and instructed to follow-up with her primary care physician within the next week. Differential Diagnosis Likely dehydration; Unlikely traveler's diarrhea, food poisoning, gastroen teritis, clostridium difficile infection or drug-induced nausea and vomiting Medical Records I reviewed the patient's medical records. Lab Data I reviewed the patient's lab results. 02/09/23 17:05 02/09/23 17:05 Radiology Impressions Abdomen X-Ray 02/09/23 17:04 IMPRESSION: No acute findings. Laboratory Results WBC 4.9 10^3/uL (4.0-10.0) 02/09/23 17:05 RBC 3.49 10^6/uL (4.1-5.3) L 02/09/23 17:05 Hgb 11.5 g/dL (11.5-15.3) 02/09/23 17:05 Hct 34.3 % (37.0-47.0) L 02/09/23 17:05 MCV 98.3 fl (81-99) 02/09/23 17:05 MCH 33.0 pg (28.0-34.0) 02/09/23 17:05 MCHC 33.5 g/dL (30.0-36.0) 02/09/23 17:05 RDW 12.6 % (12.1-15.1) 02/09/23 17:05 Plt Count 225 10^3/cmm (130-400) 02/09/23 17:05 MPV 9.3 fL (7.4-10.4) 02/09/23 17:05 Neut % (Auto) 73.7 % 02/09/23 17:05 Lymph % (Auto) 7.7 % 02/09/23 17:05 [place] % (Auto) 9.4 % 02/09/23 17:05 Eos % (Auto) 4.3 % 02/09/23 17:05 Baso % (Auto) 0.6 % 02/09/23 17:05 Neut # (Auto) 3.62 10^3/uL (1.8-7.7) 02/09/23 17:05 Lymph # (Auto) 0.4 10^3/uL (0.8-4.8) L 02/09/23 17:05 [place] # (Auto) 0.5 10^3/uL (0.2-0.9) 02/09/23 17:05 Eos # (Auto) 0.2 10^3/uL (0.0-0.8) 02/09/23 17:05 Baso # (Auto) 0.0 10^3/uL (0.0-0.1) 02/09/23 17:05 Nucleated RBC % (auto) 0 % 02/09/23 17:05 Nucleated RBCs # 0.0 /100WBC 02/09/23 17:05 Sodium 133 mmol/L (136-145) L 02/09/23 17:05 Potassium 3.8 mmol/L (3.5-5.1) 02/09/23 17:05 Chloride 97 mmol/L (98-107) L 02/09/23 17:05 Carbon Dioxide 23 mmol/L (22-29) 02/09/23 17:05 Anion Gap 16.8 (5-19) 02/09/23 17:05 BUN 7 mg/dL (8-23) L 02/09/23 17:05 Creatinine 0.7 mg/dL (0.5-0.9) 02/09/23 17:05 GFR Calculation 82.7 mL/min (90-130) L 02/09/23 17:05 Glucose 127 mg/dL (65-115) H 02/09/23 17:05 Calculated Osmolality 276 mOsm/kg (285-295) L 02/09/23 17:05 Calcium 9.6 mg/dL (8.5-10.5) 02/09/23 17:05 Magnesium 2.0 mg/dL (1.7-2.3) 02/09/23 17:05 Total Bilirubin 0.2 mg/dL (0.15-1.2) 02/09/23 17:05 AST 21 U/L (0-32) 02/09/23 17:05 ALT 14 U/L (0-33) 02/09/23 17:05 Alkaline Phosphatase 43 U/L (35-105) 02/09/23 17:05 Total Protein 6.6 g/dL (6.6-8.7) 02/09/23 17:05 Albumin 4.3 g/dL (3.5-5.2) 02/09/23 17:05 Globulin 2.3 g/dL (1.3-4.6) 02/09/23 17:05 Urine Color Light yellow (Yellow) 02/09/23 18:00 Urine Appearance Clear (CLEAR) 02/09/23 18:00 Urine pH 7 (5-7) 02/09/23 18:00 Ur Specific [place] 1.010 (1.005-1.030) 02/09/23 18:00 Urine Protein Neg (Negative) 02/09/23 18:00 Urine Glucose (UA) Norm (Normal) 02/09/23 18:00 Urine Ketones Negative (Negative) 02/09/23 18:00 Urine Blood Neg (Negative) 02/09/23 18:00 Urine Nitrate Negative (Negative) 02/09/23 18:00 Urine Bilirubin Neg (Negative) 02/09/23 18:00 Urine Urobilinogen Norm mg/dL (Negative) 02/09/23 18:00 Ur Leukocyte Esterase Negative (Negative) 02/09/23 18:00 Discharge Plan Discharge Patient Disposition: Home Clinical Impression: Nausea & vomiting Qualifiers: Vomiting type: unspecified Qualified Code(s): R11.2 - Nausea with vomiting, unspecified Condition: Stable Prescriptions: New Reglan 10 mg tablet 10 mg PO Q6H PRN (Reason: nausea and vomiting) Qty: 10 0RF No Action lansoprazole [Prevacid] 30 mg capsule,delayed release(DR/EC) 30 mg PO DAILY cholecalciferol (vitamin D3) 25 mcg (1,000 unit) capsule 25 mcg PO DAILY ascorbic acid (vitamin C) 500 mg capsule 2,000 mg PO DAILY Excedrin Extra Strength 250-250-65 mg tablet 1 tab PO Q6H PRN (Reason: Pain) hydrocodone-acetaminophen 5-325 mg tablet 1 tab PO Q8H PRN (Reason: pain) 14 Days Qty: 30 0RF alprazolam 0.5 mg tablet 0.5 mg PO BID MDD 1 mg PRN (Reason: anxiety) Qty: 60 2RF Vitamin B-12 50 mcg Tablet 50 mcg PO DAILY albuterol sulfate 90 mcg/actuation HFA aerosol inhaler 2 inh INHALATION Q6H PRN (Reason: shortness of breath or wheezing) Qty: 8 0RF Discharge Orders: Discharge ED (Routine); Ordered 02/09/23 Ordered By: Sang Herbert Referrals: Ruy Haro MD [Primary Care Provider] - Discharge Diet: Advance as tolerated and Full LIquid Patient Instructions: Acute Nausea and Vomiting (ED) Coding Level of Care Code ED Am[employer]rig[employer] Technician for Tiera Rosenthal
[2023-02-09] MEDS: sodium chloride 0.9% 1,000 ML 999 ML IV (17:21)
[2023-02-09 17:22] LABS: Basophils % 0.6 %; Eosinophils # 0.2 10^3/uL (0.0-0.8); Eosinophils % 4.3 %; Hematocrit 34.3 % (37.0-47.0); Hemoglobin 11.5 g/dL (11.5-15.3); Lymphocytes # 0.4 10^3/uL (0.8-4.8); Lymphocytes % 7.7 %; Mean Corpuscular HGB Conc 33.5 g/dL (30.0-36.0); Mean Corpuscular Volume 98.3 fl (81-99); Mean Platelet Volume 9.3 fL (7.4-10.4); Monocytes # 0.5 10^3/uL (0.2-0.9); Monocytes % 9.4 %; Neutrophils # 3.62 10^3/uL (1.8-7.7); Neutrophils % 73.7 %; Nucleated Red Blood Cells % 0 %; Platelet Count 225 10^3/cmm (130-400); Red Blood Count 3.49 10^6/uL (4.1-5.3); Red Cell Distribution Width 12.6 % (12.1-15.1); White Blood Count 4.9 10^3/uL (4.0-10.0)
[2023-02-09] MEDS: metoclopramide 5 mg/mL SDV 2 mL 10 MG IVP (17:22)
[2023-02-09 17:47] LABS: Alanine Aminotransferase 14 U/L (0-33); Albumin Level 4.3 g/dL (3.5-5.2); Alkaline Phosphatase 43 U/L (35-105); Anion Gap 16.8 (5-19); Aspartate Amino Transferase 21 U/L (0-32); Blood Urea Nitrogen 7 mg/dL (8-23); Calcium 9.6 mg/dL (8.5-10.5); Carbon Dioxide 23 mmol/L (22-29); Chloride 97 mmol/L (98-107); Globulin 2.3 g/dL (1.3-4.6); Glomerular Filtration Rate 82.7 mL/min (90-130); Glucose 127 mg/dL (65-115); Osmolality Calculated 276 mOsm/kg (285-295); Potassium 3.8 mmol/L (3.5-5.1); Sodium 133 mmol/L (136-145); Total Bilirubin 0.2 mg/dL (0.15-1.2); Total Protein 6.6 g/dL (6.6-8.7)
[2023-02-09 18:01] VITALS: PULSE 91; RESP 20; O2SAT 96
[2023-02-09 18:08] LABS: Add Urine Microscopic? NO; Charge for UA Resulting for Rev
[2023-02-09 18:18] LABS: Urine Appearance Clear (CLEAR); Urine Color Light yellow (Yellow); pH Urine 7 (5-7)
[2023-02-09 18:19] LABS: Bilirubin Urine Neg (Negative); Blood Urine Neg (Negative); Glucose Urine UA Norm (Normal); Ketones Urine Negative (Negative); Leukocyte Esterase Urine Negative (Negative); Nitrate Urine Negative (Negative); Protein Urine Neg (Negative); Urobilinogen Urine Norm (Negative)
[2023-02-09] MEDS: LORazepam 2 mg/mL INJ 1 mL 1 MG IVP (19:03)
[2023-02-09 19:48] VITALS: PULSE 88; RESP 18; O2SAT 99
== END 2023-02-09 19:49 | disposition home or self-care (01) ==
PROVIDERS: Physician Assistant; Emergency Provider Emergency Medicine; PCP Family Medicine
DX: R11.2 Nausea with vomiting, unspecified (principal)
CPT/HCPCS: 36415; 74018; 80053; 81003; 83735; 85025; 96361; 96374; 96375; 99284; J2060; J2765; J7030

== ENCOUNTER 2023-03-08 12:34 | Oncology outpatient (recurring) (ONCR) | payer MEDICARE, OTHER, SELFPAY ==
[2023-03-08 12:59] LABS: Basophils % 0.9 %; Eosinophils # 0.1 10^3/uL (0.0-0.8); Eosinophils % 3.4 %; Hematocrit 34.6 % (37.0-47.0); Hemoglobin 11.5 g/dL (11.5-15.3); Lymphocytes # 0.6 10^3/uL (0.8-4.8); Lymphocytes % 19.1 %; Mean Corpuscular HGB Conc 33.2 g/dL (30.0-36.0); Mean Corpuscular Hemoglobin 33.1 pg (28.0-34.0); Mean Corpuscular Volume 99.7 fl (81-99); Mean Platelet Volume 9.6 fL (7.4-10.4); Monocytes # 0.5 10^3/uL (0.2-0.9); Monocytes % 14.4 %; Neutrophils # 1.87 10^3/uL (1.8-7.7); Neutrophils % 58.8 %; Nucleated Red Blood Cells % 0 %; Platelet Count 154 10^3/cmm (130-400); Red Blood Count 3.47 10^6/uL (4.1-5.3); Red Cell Distribution Width 12.5 % (12.1-15.1); White Blood Count 3.2 10^3/uL (4.0-10.0)
[2023-03-08 13:40] LABS: Alanine Aminotransferase 12 U/L (0-33); Albumin Level 4.1 g/dL (3.5-5.2); Alkaline Phosphatase 34 U/L (35-105); Anion Gap 14.2 (5-19); Aspartate Amino Transferase 16 U/L (0-32); Blood Urea Nitrogen 9 mg/dL (8-23); Calcium 8.7 mg/dL (8.5-10.5); Carbon Dioxide 23 mmol/L (22-29); Chloride 104 mmol/L (98-107); Glomerular Filtration Rate 61.9 mL/min (90-130); Glucose 99 mg/dL (65-115); Lactate Dehydrogenase 225 U/L (135-214); Osmolality Calculated 283 mOsm/kg (285-295); Potassium 4.2 mmol/L (3.5-5.1); Sodium 137 mmol/L (136-145); Total Bilirubin 0.2 mg/dL (0.15-1.2); Total Protein 6.1 g/dL (6.6-8.7)
== END 2023-03-26 23:59 | disposition home or self-care (01) ==
PROVIDERS: PCP Family Medicine; Visit Provider Internal Medicine Medical Oncology
DX: F41.9 Anxiety disorder, unspecified; R53.83 Other fatigue; Z87.891 Personal history of nicotine dependence; Z85.72 Personal history of non-Hodgkin lymphomas; Z08 Encounter for follow-up examination after completed treatment for malignant neoplasm; R50.9 Fever, unspecified; H53.8 Other visual disturbances; Z79.899 Other long term (current) drug therapy; R63.4 Abnormal weight loss; Z68.1 Body mass index [BMI] 19.9 or less, adult; C83.33 Diffuse large B-cell lymphoma, intra-abdominal lymph nodes; D80.1 Nonfamilial hypogammaglobulinemia
CPT/HCPCS: 36415; 80053; 83615; 85025; 99213

== ENCOUNTER 2023-03-14 14:28 | Outpatient (CLI) | payer MEDICARE, OTHER, SELFPAY ==
--- NOTE | 2023-03-14 | XR_ITS ---
WS: [id number] DEXA (DUAL ENERGY X-RAY ABSORPTIOMETRY) Bone mineral density was performed using a InsightETE machine. HISTORY: postmenopausal COMPARISON: None available. Lumbar spine BMD (L1-L4): 0.727 g/cm2 T score: -3.8 Z score: -1.6 Total hip BMD: Left: 0.475 g/cm2. T score: -4.2 Z score: -2.4 Right: 0.454 g/cm2. T score: -4.4 Z score: -2.5 10 year probability of a major osteoporotic fracture is 42.4%. LEFT curvature lumbar spine. XR/XR DEXA axial skeleton* [id number] IMPRESSION: OSTEOPOROSIS based upon the WHO classification for females.
== END 2023-03-14 14:29 | disposition home or self-care (01) ==
PROVIDERS: PCP Family Medicine; Visit Provider Nurse Practitioner Family
DX: Z78.0 Asymptomatic menopausal state (principal); M81.0 Age-related osteoporosis without current pathological fracture
CPT/HCPCS: 77080

== ENCOUNTER → 2023-07-06 09:50 | Outpatient (BNVA) | payer MEDICARE, OTHER, SELFPAY | PROVIDERS: PCP Family Medicine; Visit Provider Nurse Practitioner Women's Health | DX: N39.0 Urinary tract infection, site not specified (principal) | CPT/HCPCS: 84315; 87086 ==

== ENCOUNTER 2023-08-24 08:22 | Outpatient (CLI) | payer MEDICARE, OTHER, SELFPAY ==
--- NOTE | 2023-08-24 09:30 | CT_ITS ---
WS: [id number] CT CHEST, ABDOMEN AND PELVIS WITH CONTRAST HISTORY: 6 month follow up, history of lymphoma. TECHNIQUE: Contiguous 5 mm axial imaging performed through the chest, abdomen and pelvis with IV cont rast, oral contrast has been provided. Coronal and sagittal reformats chest. Coronal and sagittal ref ormats through the abdomen and pelvis. All CT scans at [facility] use at least one of these d ose optimization techniques: automated exposure control; mA and/or kV adjustment per patient size (in cludes targeted exams where dose is matched to clinical indication); or iterative reconstruction. CONTRAST: Omnipaque 350; 100 mL IV. DLP: 584.44 mGy.cm COMPARISON: 01/18/2023, 08/10/[address]: Mild hyperexpansion of the lungs. No pulmonary mass, nodule or pneumonia. No pleural or per icardial effusion. Heart is normal size no mediastinal or hilar adenopathy. No axillary adenopathy. M ild atherosclerosis aorta. Normal sized pulmonary artery. Abdomen CT: Mild motion artifact. No masses or abnormal enhancement within the liver, spleen, adrenal glands, pancreas or kidneys. There is significant motion artifact which decreases the sensitivity of the imaging evaluation. Gallbladder is present and slightly contracted. Moderate atherosclerosis wit hin the abdominal aorta. No ascites and no adenopathy is appreciated. No GI tract obstruction. Pelvic CT: No free fluid or adenopathy. Well distended urinary bladder. Mild thoracolumbar scoliosis. Bones appear mildly osteopenic. No destructive bone lesions. Healed rib fractures in the posterior lateral RIGHT thorax. IMPRESSION: 1. No evidence for recurrent lymphoma or adenopathy within the chest, abdomen or pelvis. 2. Normal size spleen. No splenomegaly. 3. No ascites. 4. No pulmonary mass or pneumonia. 5. Moderate atherosclerosis aorta.
[2023-08-24] MEDS: iohexol 350 mg/mL 500 mL Btl (per mL) IV (09:37)
[2023-08-24] MEDS: iohexol 350 mg/mL 500 mL Btl (per mL) PO (09:59)
== END 2023-08-24 08:23 | disposition home or self-care (01) ==
PROVIDERS: PCP Family Medicine; Visit Provider Internal Medicine Medical Oncology
DX: C83.33 Diffuse large B-cell lymphoma, intra-abdominal lymph nodes (principal); I70.0 Atherosclerosis of aorta
CPT/HCPCS: 71260; 74177; Q9967

== ENCOUNTER 2023-09-12 10:57 | Oncology outpatient (recurring) (ONCR) | payer MEDICARE, OTHER, SELFPAY ==
[2023-09-12 11:02] VITALS: BP 135/77; PULSE 69; RESP 16; TEMP 36.6; O2SAT 97
[2023-09-12 11:17] LABS: Basophils % 0.8 %; Eosinophils # 0.1 10^3/uL (0.0-0.8); Eosinophils % 3.4 %; Hematocrit 37.1 % (36-47); Lymphocytes # 0.6 10^3/uL (0.8-4.8); Lymphocytes % 15.8 %; Mean Corpuscular HGB Conc 33.2 g/dL (30-55); Mean Corpuscular Hemoglobin 33.3 pg (27-33); Mean Corpuscular Volume 100.5 fl (85-98); Mean Platelet Volume 8.8 fL (7.4-10.4); Monocytes # 0.4 10^3/uL (0.2-0.9); Monocytes % 12.1 %; Neutrophils # 2.37 10^3/uL (1.8-7.7); Neutrophils % 66.8 %; Nucleated Red Blood Cells % 0 %; Platelet Count 160 10^3/cmm (157-399); Red Blood Count 3.69 10^6/uL (3.85-5.65); Red Cell Distribution Width 11.8 % (12.1-15.1); White Blood Count 3.55 10^3/uL (3.29-11.43)
[2023-09-12 12:02] LABS: Alanine Aminotransferase 12 U/L (0-33); Albumin Level 4.3 g/dL (3.5-5.2); Alkaline Phosphatase 31 U/L (35-105); Anion Gap 15.2 (5-19); Aspartate Amino Transferase 17 U/L (0-32); Blood Urea Nitrogen 12 mg/dL (8-23); Calcium 9.4 mg/dL (8.5-10.5); Carbon Dioxide 25 mmol/L (22-29); Chloride 101 mmol/L (98-107); Globulin 2.1 g/dL (1.3-4.6); Glomerular Filtration Rate 61.9 mL/min (90-130); Glucose 98 mg/dL (65-115); Lactate Dehydrogenase 195 U/L (135-214); Osmolality Calculated 284 mOsm/kg (285-295); Potassium 4.2 mmol/L (3.5-5.1); Sodium 137 mmol/L (136-145); Total Bilirubin 0.3 mg/dL (0.15-1.2); Total Protein 6.4 g/dL (6.6-8.7)
== END 2023-09-26 23:59 | disposition home or self-care (01) ==
PROVIDERS: Nurse Practitioner Family; PCP Family Medicine; Visit Provider Internal Medicine Medical Oncology
DX: C83.33 Diffuse large B-cell lymphoma, intra-abdominal lymph nodes (principal); R53.0 Neoplastic (malignant) related fatigue; R42 Dizziness and giddiness; Z87.891 Personal history of nicotine dependence
CPT/HCPCS: 36415; 80053; 83615; 85025; 99213

== ENCOUNTER 2023-10-06 10:01 | Emergency (ER) | payer MEDICARE, OTHER, SELFPAY ==
[2023-10-06 10:12] VITALS: BP 152/81; PULSE 63; RESP 17; TEMP 36.4; O2SAT 97; BMI 19.1
--- NOTE | 2023-10-06 10:41 | W.ED.BACK ---
HPI - Back Pain/Injury General: Chief Complaint: Back Pain/Injury Stated Complaint: abd pain/cough Time Seen by Provider: 10/06/23 10:34 Source: patient Mode of arrival: ambulatory History of Present Illness: 72-year-old female presents emergency room complaining of right-sided rib pain. She has history of previous rib fractures She is coughing this morning and has severe pain on that side and she felt a popping sensation. No fever sweats chills cough is nonproductive Pertinent past history: prior back pain Exacerbating factors: deep breaths and coughing/sneezing Relieving factors: none Associated symptoms: Deny abdominal pain, arthralgias, chills, change in bowel habits, difficulty walking, dysuria, fatigue, fecal incontinence, fever(s), hematuria, myalgias, nausea, numbness, syncope, tingling/numbness/burning, urinary frequency, urinary urgency, vomiting or weakness Review of Systems Const: Denies: fever(s), chills or fatigue Card: Denies: syncope GI: Denies: abdominal pain, nausea, vomiting, fecal incontinence or change in bowel habits : Denies: dysuria, urinary urgency or hematuria Neuro: Denies: difficulty walking PFSH ED PFSH: Medical History Chronic anxiety Constipation Diffuse large B cell lymphoma Hemothorax with pneumothorax, traumatic (~12/2022) History of ESBL E. coli infection Hypogammaglobulinemia History of treatment related hypogammaglobulinemia Osteoporosis Recurrent UTI Rib fractures Surgical History History of bilateral breast biopsy 1994--benign per patient Hx of cataract surgery 2017--bilateral S/P tubal ligation 1989--laparoscopic Family History Father Heart disease Mother Asthma Grandmother Diabetes maternal Cervical cancer paternal Family/Other Diabetes Maternal uncles Son Thyroid disease Denies family history of Colon cancer Ovarian cancer Hyperlipidemia Breast cancer Hypertension Uterine cancer Stroke Social History Smoking and tobacco/nicotine status: former use of tobacco/nicotine Quit status (tobacco/nicotine): has quit using Year quit tobacco: 2016 Former quit date comment: smoked 25 years Physical Exam Const: COMMON NORMALS: no acute distress GENERAL APPEARANCE: cooperative and comfortable ORIENTATION/CONSCIOUSNESS: Yes awake, Yes oriented to person, Yes oriented to place and Yes oriented to time HENMT: COMMON NORMALS: normocephalic, atraumatic and hearing grossly normal bilaterally HEAD & SCALP: normocephalic and atraumatic Resp: COMMON NORMALS: normal respiratory effort, No retractions, No use of accessory muscles and clear to auscultation bilaterally AUSCULTATION: clear to auscultation bilaterally Cardio: COMMON NORMALS: regular rate, regular rhythm and No murmurs present (Cardio) RATE: regular rate RHYTHM: regular rhythm GI: COMMON NORMALS: Soft to palpation and No hepatosplenomegaly present AUSCULTATION: Yes normoactive bowel sounds PALPATION: Yes Soft to palpation, No Tenderness to palpation present (GI), No Guarding due to palpation present (GI) and Yes No hepatosplenomegaly present Extremity: COMMON NORMALS: normal to inspection, capillary refill normal, no clubbing, cyanosis or edema, no calf tenderness and no pedal edema Neuro: SENSORIUM/ORIENTATION: Yes oriented to person, Yes oriented to place and Yes oriented to time Skin: COMMON NORMALS: no rashes or lesions noted GENERAL SKIN EXAM: no rashes or lesions noted Course Vital Signs: Vital signs: Vital Signs Temperature 97.5 F L 10/06/23 10:12 Pulse Rate 97 10/06/23 12:54 Respiratory Rate 18 10/06/23 10:55 Blood Pressure 170/94 10/06/23 10:55 Pulse Oximetry 99 10/06/23 12:54 Oxygen Delivery Me thod Room Air 10/06/23 12:54 MDM - Back Pain/Injury Medical Decision Making Right rib pain no radiographic findings of fracture treat with anti-inflammatories ice minimize movement follow-up with primary care if not improving Medical Records I reviewed the patient's medical records. Labs I reviewed the patient's lab results. 10/06/23 10:53 10/06/23 10:53 Radiology Impressions Ribs X-Ray 10/06/23 11:20 IMPRESSION: No acute findings. Laboratory Results WBC 4.34 10^3/uL (3.29-11.43) 10/06/23 10:53 RBC 3.91 10^6/uL (3.85-5.65) 10/06/23 10:53 Hgb 13.20 g/dL (11.27-16.99) 10/06/23 10:53 Hct 39.6 % (36-47) 10/06/23 10:53 MCV 101.3 fl (85-98) H 10/06/23 10:53 MCH 33.8 pg (27-33) H 10/06/23 10:53 MCHC 33.3 g/dL (30-55) 10/06/23 10:53 RDW 11.9 % (12.1-15.1) L 10/06/23 10:53 Plt Count 194 10^3/cmm (157-399) 10/06/23 10:53 MPV 9.2 fL (7.4-10.4) 10/06/23 10:53 Neut % (Auto) 76.3 % 10/06/23 10:53 Lymph % (Auto) 9.9 % 10/06/23 10:53 [place] % (Auto) 9.7 % 10/06/23 10:53 Eos % (Auto) 1.6 % 10/06/23 10:53 Baso % (Auto) 0.9 % 10/06/23 10:53 Neut # (Auto) 3.31 10^3/uL (1.8-7.7) 10/06/23 10:53 Lymph # (Auto) 0.4 10^3/uL (0.8-4.8) L 10/06/23 10:53 [place] # (Auto) 0.4 10^3/uL (0.2-0.9) 10/06/23 10:53 Eos # (Auto) 0.1 10^3/uL (0.0-0.8) 10/06/23 10:53 Baso # (Auto) 0.0 10^3/uL (0.0-0.1) 10/06/23 10:53 Nucleated RBC % (auto) 0 % 10/06/23 10:53 Nucleated RBCs # 0.0 /100WBC 10/06/23 10:53 Sodium 136 mmol/L (136-145) 10/06/23 10:53 Potassium 4.1 mmol/L (3.5-5.1) 10/06/23 10:53 Chloride 101 mmol/L (98-107) 10/06/23 10:53 Carbon Dioxide 24 mmol/L (22-29) 10/06/23 10:53 Anion Gap 15.1 (5-19) 10/06/23 10:53 BUN 12 mg/dL (8-23) 10/06/23 10:53 Creatinine 0.9 mg/dL (0.5-0.9) 10/06/23 10:53 GFR Calculation 61.9 mL/min (90-130) L 10/06/23 10:53 Glucose 92 mg/dL (65-115) 10/06/23 10:53 Calculated Osmolality 281 mOsm/kg (285-295) L 10/06/23 10:53 Calcium 9.8 mg/dL (8.5-10.5) 10/06/23 10:53 Total Bilirubin 0.2 mg/dL (0.15-1.2) 10/06/23 10:53 AST 17 U/L (0-32) 10/06/23 10:53 ALT 14 U/L (0-33) 10/06/23 10:53 Alkaline Phosphatase 34 U/L (35-105) L 10/06/23 10:53 Total Protein 7.2 g/dL (6.6-8.7) 10/06/23 10:53 Albumin 4.8 g/dL (3.5-5.2) 10/06/23 10:53 Globulin 2.4 g/dL (1.3-4.6) 10/06/23 10:53 Urine Color Yellow (Yellow) 10/06/23 12:47 Urine Appearance Clear (CLEAR) 10/06/23 12:47 Urine pH 7 (5-7) 10/06/23 12:47 Ur Specific [place] 1.010 (1.005-1.030) 10/06/23 12:47 Urine Protein Neg (Negative) 10/06/23 12:47 Urine Glucose (UA) Norm (Normal) 10/06/23 12:47 Urine Ketones Negative (Negative) 10/06/23 12:47 Urine Blood Neg (Negative) 10/06/23 12:47 Urine Nitrate Negative (Negative) 10/06/23 12:47 Urine Bilirubin Neg (Negative) 10/06/23 12:47 Urine Urobilinogen Neg mg/dL (Negative) 10/06/23 12:47 Ur Leukocyte Esterase Negative (Negative) 10/06/23 12:47 All radiology interpretation(s) finalized by discharge Discharge Plan Discharge Patient Disposition: Home Clinical Impression: Rib pain on right side Condition: Stable Prescriptions: New diclofenac sodium 75 mg tablet,delayed release (DR/EC) 75 mg PO Q12H PRN (Reason: pain) Qty: 20 0RF No Action lansoprazole [Prevacid] 30 mg capsule,delayed release(DR/EC) 30 mg PO DAILY PRN (Reason: Acid Reflux) cholecalciferol (vitamin D3) 25 mcg (1,000 unit) capsule 25 mcg PO DAILY ascorbic acid (vitamin C) 500 mg capsule 2,000 mg PO DAILY Excedrin Extra Strength 250-250-65 mg tablet 1 tab PO Q6H PRN (Reason: Pain) alendronate [Fosamax] 70 mg tablet 70 mg PO .weekly Qty: 10 3RF Rx Instructions: stay upright for 1 hour after taking it. alprazolam 0.5 mg tablet 0.5 mg PO TID MDD 1 mg PRN (Reason: anxiety) Qty: 90 2RF ondansetron HCl 4 mg tablet See Rx Instructions .ROUTE .COMPLEX Qty: 120 0RF Dose Instruction: TAKE 1 TABLET BY MOUTH EVERY 6 HOURS NEEDED FOR NAUSEA AND VOMITING Rx Instructions: TAKE 1 TABLET BY MOUTH EVERY 6 HOURS NEEDED FOR NAUSEA AND VOMITING Vitamin B-12 50 mcg Tablet 50 mcg PO DAILY Discharge Orders: Discharge ED (Routine); Ordered 10/06/23 Ordered By: Josep Alcala Referrals: Ruy Haro MD [Primary Care Provider] - Discharge Diet: Usual diet Discharge Activity: Resume usual activity Patient Instructions: Opioid Safety, Pain Management Activity Restrictions/Additional Instructions: Thank you for choosing [facility] for your healthcare needs today. Please realize this is an emergency room and that we are providing you with a medical screening exam and this may not be complete and all inclusive of all the testing and or work up that you may need to determine your ailment or severity of your illness. It is very important that you follow up as instructed or that you return to the Emergency Department should you have concerns or if your condition changes or worsens in any way. X-rays did not show any acute fractures chest x-ray was unremarkable. Use diclofenac as needed for discomfort follow-up with your primary care doctor Dr. Fontanez if not improving or if the symptoms change. If symptoms significantly worsen you can return to the emergency room. Coding Level of Care Code ED Police [employer] Dispatcher for Tiera Rosenthal
[2023-10-06 10:55] VITALS: BP 170/94; PULSE 66; RESP 18; O2SAT 98
[2023-10-06 11:02] LABS: Basophils % 0.9 %; Eosinophils # 0.1 10^3/uL (0.0-0.8); Eosinophils % 1.6 %; Hematocrit 39.6 % (36-47); Lymphocytes # 0.4 10^3/uL (0.8-4.8); Lymphocytes % 9.9 %; Mean Corpuscular HGB Conc 33.3 g/dL (30-55); Mean Corpuscular Hemoglobin 33.8 pg (27-33); Mean Corpuscular Volume 101.3 fl (85-98); Mean Platelet Volume 9.2 fL (7.4-10.4); Monocytes # 0.4 10^3/uL (0.2-0.9); Monocytes % 9.7 %; Neutrophils # 3.31 10^3/uL (1.8-7.7); Neutrophils % 76.3 %; Nucleated Red Blood Cells % 0 %; Platelet Count 194 10^3/cmm (157-399); Red Blood Count 3.91 10^6/uL (3.85-5.65); Red Cell Distribution Width 11.9 % (12.1-15.1); White Blood Count 4.34 10^3/uL (3.29-11.43)
[2023-10-06 11:18] LABS: Alanine Aminotransferase 14 U/L (0-33); Albumin Level 4.8 g/dL (3.5-5.2); Alkaline Phosphatase 34 U/L (35-105); Anion Gap 15.1 (5-19); Aspartate Amino Transferase 17 U/L (0-32); Blood Urea Nitrogen 12 mg/dL (8-23); Calcium 9.8 mg/dL (8.5-10.5); Carbon Dioxide 24 mmol/L (22-29); Chloride 101 mmol/L (98-107); Globulin 2.4 g/dL (1.3-4.6); Glomerular Filtration Rate 61.9 mL/min (90-130); Glucose 92 mg/dL (65-115); Osmolality Calculated 281 mOsm/kg (285-295); Potassium 4.1 mmol/L (3.5-5.1); Sodium 136 mmol/L (136-145); Total Bilirubin 0.2 mg/dL (0.15-1.2); Total Protein 7.2 g/dL (6.6-8.7)
--- NOTE | 2023-10-06 11:20 | XRR_ITS ---
PROCEDURE INFORMATION: Exam: XR Right Ribs with PA Chest Exam date and time: 10/06/2023 11:27 AM Age: 72 years old Clinical indication: Chest wall pain; Right; Additional info: Chest pain right rib pain TECHNIQUE: Imaging protocol: Radiologic exam of the right ribs with PA chest. Views: 3 views COMPARISON: CT chest abdpel w/*[id number] 08/24/2023 9:33 AM FINDINGS: Lungs: Unremarkable. No consolidation. Pleural spaces: Unremarkable. No pleural effusion. No pneumothorax. Heart/Mediastinum: Unremarkable. No cardiomegaly. Bones/joints: No acute rib fracture. There appears to be an old healed rib fracture involving the right 8th rib. There is a mild scoliosis. XR/XR ribs RT mn 3V w CXR1V [id number] IMPRESSION: No acute findings.
[2023-10-06 12:51] LABS: Add Urine Microscopic? NO; Charge for UA Resulting for Rev
[2023-10-06 12:54] VITALS: PULSE 97; O2SAT 99
[2023-10-06 13:01] LABS: Bilirubin Urine Neg (Negative); Blood Urine Neg (Negative); Glucose Urine UA Norm (Normal); Ketones Urine Negative (Negative); Leukocyte Esterase Urine Negative (Negative); Nitrate Urine Negative (Negative); Protein Urine Neg (Negative); Urine Appearance Clear (CLEAR); Urine Color Yellow (Yellow); Urobilinogen Urine Neg (Negative); pH Urine 7 (5-7)
== END 2023-10-06 13:44 | disposition home or self-care (01) ==
PROVIDERS: Emergency Provider Family Medicine; PCP Family Medicine
DX: R07.81 Pleurodynia (principal); Z87.891 Personal history of nicotine dependence; Z85.72 Personal history of non-Hodgkin lymphomas
CPT/HCPCS: 36415; 71101; 80053; 81003; 85025; 99284

== ENCOUNTER 2023-11-19 17:09 | Emergency (ER) | payer MEDICARE, OTHER, SELFPAY ==
[2023-11-19 17:12] VITALS: BP 174/80; PULSE 81; RESP 17; TEMP 36.8; O2SAT 98
--- NOTE | 2023-11-19 17:18 | XRR_ITS ---
PROCEDURE INFORMATION: Exam: XR Chest Exam date and time: 11/19/2023 5:48 PM Age: 72 years old Clinical indication: Patient HX: Cough; Congestion; HX recent right thoracotomy TECHNIQUE: Imaging protocol: Radiologic exam of the chest. Views: 1 view. COMPARISON: CR XR ribs RT mn 3V w CXR1V [id number] 10/06/2023 11:27 AM FINDINGS: Lungs: Suggestion of hyperinflation. No focal infiltrate or consolidation. Pleural spaces: No pleural effusion or pneumothorax. Heart/Mediastinum: Cardiac size is within normal limits. Vasculature: Arteriosclerosis of the thoracic aorta. Bones/joints: Mild thoracolumbar scoliosis. A few prior rib fractures on the right (history of prior thoracotomy). Other findings: No significant change with prior exam. XR/XR chest 1V portable [id number] IMPRESSION: Stable appearance of the chest with prior exam, without acute findings.
--- NOTE | 2023-11-19 17:31 | ED_ITS ---
HPI - URI/Sore Throat General: Chief Complaint: Upper Respiratory Infection Stated Complaint: sinus, conjestion, cough Time Seen by Provider: 11/19/23 17:30 History of Present Illness: 72-year-old female comes in today with r ight facial sinus pain, and cough with chest congestion. Patient has been ill for about 2 weeks. Patient appears nontoxic. Patient appears in mild to no pain. Patient has a history of osteopenia, GERD, B12 deficiency. Associated symptoms: Reports sinus pain Review of Systems General: Reports: 10 or more systems reviewed and unremarkable except in HPI and below ENMT: Reports: sinus pain Resp: Reports: non-productive cough PFSH ED PFSH: Medical History Chronic anxiety Constipation Diffuse large B cell lymphoma Hemothorax with pneumothorax, traumatic (~12/2022) History of ESBL E. coli infection Hypogammaglobulinemia History of treatment related hypogammaglobulinemia Osteoporosis Recurrent UTI Rib fractures Surgical History History of bilateral breast biopsy 1994--benign per patient Hx of cataract surgery 2017--bilateral S/P tubal ligation 1989--laparoscopic Family History Father Heart disease Mother Asthma Grandmother Diabetes maternal Cervical cancer paternal Family/Other Diabetes Maternal uncles Son Thyroid disease Denies family history of Colon cancer Ovarian cancer Hyperlipidemia Breast cancer Hypertension Uterine cancer Stroke Social History Smoking and tobacco/nicotine status: former use of tobacco/nicotine Quit status (tobacco/nicotine): has quit using Year quit tobacco: 2016 Former quit date comment: smoked 25 years Physical Exam Const: COMMON NORMALS: alert HENMT: COMMON NORMALS: normocephalic HEAD & SCALP: normocephalic FACE & SINUS: Facial tenderness on exam of face and sinuses Neck/C-Spine: COMMON NORMALS: full ROM and no meningeal signs Resp: COMMON NORMALS: normal respiratory effort and clear to auscultation bilaterally AUSCULTATION: clear to auscultation bilaterally Cardio: COMMON NORMALS: regular rate and regular rhythm RATE: regular rate RHYTHM: regular rhythm GI: COMMON NORMALS: non-tender Extremity: COMMON NORMALS: no pedal edema Neuro: SENSORIUM/ORIENTATION: Yes alert MENINGEAL SIGNS: Yes no meningeal signs Skin: COMMON NORMALS: turgor normal GENERAL SKIN EXAM: turgor normal Course Vital Signs: Vital signs: Vital Signs Temperature 98.3 F 11/19/23 17:12 Pulse Rate 81 11/19/23 17:12 Respiratory Rate 15 11/19/23 18:11 Blood Pressure 174/80 11/19/23 17:12 Pulse Oximetry 98 11/19/23 18:11 Oxygen Delivery Me thod Room Air 11/19/23 17:12 MDM - URI/Sore Throat Medical Decision Making 72-year-old female comes in today for complaints of respiratory symptoms x 2 weeks with cough worsening over the last 24 to 48 hours. Patient also reports some increasing sinus pain on the right side of the face. On exam patient appears nontoxic. Lungs are decreased in the bases. Vital signs are normal except for some elevated blood pressure. Differential diagnosis includes but not limited to upper respiratory infection, pneumonia, rhinosinusitis. Chest x- ray was negative for pneumonia. Reviewed exam with patient with recommendations for treatment for rhinosinusitis with doxycycline. Patient reported understanding agreed to plan. Patient was stable and discharged home. Lab Data Radiology Impressions Chest X-Ray 11/19/23 17:18 IMPRESSION: Stable appearance of the chest with prior exam, without acute findings. All radiology interpretation(s) finalized by discharge Discharge Plan Discharge Patient Disposition: Home Clinical Impression: Acute rhinosinusitis Condition: Stable Prescriptions: New doxycycline hyclate 100 mg tablet 100 mg PO BID 7 Days Qty: 14 0RF No Action lansoprazole [Prevacid] 30 mg capsule,delayed release(DR/EC) 30 mg PO DAILY PRN (Reason: Acid Reflux) cholecalciferol (vitamin D3) 25 mcg (1,000 unit) capsule 25 mcg PO DAILY ascorbic acid (vitamin C) 500 mg capsule 2,000 mg PO DAILY Excedrin Extra Strength 250-250-65 mg tablet 1 tab PO Q6H PRN (Reason: Pain) alendronate [Fosamax] 70 mg tablet 70 mg PO .weekly Qty: 10 3RF Rx Instructions: stay upright for 1 hour after taking it. ondansetron HCl 4 mg tablet See Rx Instructions .ROUTE .COMPLEX Qty: 120 0RF Dose Instruction: TAKE 1 TABLET BY MOUTH EVERY 6 HOURS NEEDED FOR NAUSEA AND VOMITING Rx Instructions: TAKE 1 TABLET BY MOUTH EVERY 6 HOURS NEEDED FOR NAUSEA AND VOMITING alprazolam 0.5 mg tablet 0.5 mg PO TID MDD 1 mg PRN (Reason: anxiety) Qty: 90 2RF Vitamin B-12 50 mcg Tablet 50 mcg PO DAILY diclofenac sodium 75 mg tablet,delayed release (DR/EC) 75 mg PO Q12H PRN (Reason: pain) Qty: 20 0RF Discharge Orders: Discharge ED (Routine); Ordered 11/19/23 Ordered By: Geoff Liriano Referrals: Ruy Haro MD [Primary Care Provider] - Discharge Diet: Usual diet Discharge Activity: Increase activity as tolerated Patient Instructions: Rhinosinusitis (ED) Activity Restrictions/Additional Instructions: Home and rest. Drink plenty water and fluids. Take antibiotic as directed. Follow-up with primary care for further instructions. Return to ED for new concerns or worsening symptoms such as increased shortness of breath or inability to hold fluids down. Coding Level of Care Code ED [employer] for Tiera Rosenthal
[2023-11-19 18:11] VITALS: RESP 15; O2SAT 98
[2023-11-19] MEDS: doxycycline 100 mg Tablet 300 MG PO (18:11)
--- NOTE | 2023-11-19 18:14 | PC.NURSE ---
pt was sent home with doxycycline 100mg x2 tabs per TIGRE Liriano d/t pharmacy being closed on 11/20/2023.
== END 2023-11-19 18:15 | disposition home or self-care (01) ==
PROVIDERS: Emergency Provider Nurse Practitioner Family; PCP Family Medicine
DX: J01.90 Acute sinusitis, unspecified (principal); Z87.891 Personal history of nicotine dependence; Z85.72 Personal history of non-Hodgkin lymphomas
CPT/HCPCS: 71045; 99283

== ENCOUNTER 2023-12-20 13:47 | Oncology outpatient (recurring) (ONCR) | payer MEDICARE, OTHER, SELFPAY ==
[2023-12-20 14:09] VITALS: BP 150/85; PULSE 72; RESP 16; TEMP 36.9; O2SAT 100
[2023-12-20 14:24] LABS: Basophils % 1.1 %; Eosinophils # 0.1 10^3/uL (0.0-0.8); Eosinophils % 3.2 %; Hematocrit 34.7 % (36-47); Lymphocytes # 0.4 10^3/uL (0.8-4.8); Lymphocytes % 9.8 %; Mean Corpuscular HGB Conc 33.4 g/dL (30-55); Mean Corpuscular Volume 98.6 fl (85-98); Mean Platelet Volume 8.8 fL (7.4-10.4); Monocytes # 0.5 10^3/uL (0.2-0.9); Monocytes % 12.5 %; Neutrophils % 71.8 %; Nucleated Red Blood Cells % 0 %; Platelet Count 184 10^3/cmm (157-399); Red Blood Count 3.52 10^6/uL (3.85-5.65); Red Cell Distribution Width 11.9 % (12.1-15.1); White Blood Count 3.76 10^3/uL (3.29-11.43)
[2023-12-20 14:40] LABS: Erythrocyte Sedimentation Rate 12 mm/hr (0-15)
[2023-12-20 15:05] LABS: Alanine Aminotransferase 14 U/L (0-33); Albumin Level 3.8 g/dL (3.5-5.2); Alkaline Phosphatase 35 U/L (35-105); Aspartate Amino Transferase 18 U/L (0-32); Blood Urea Nitrogen 11 mg/dL (8-23); Calcium 9.2 mg/dL (8.5-10.5); Carbon Dioxide 25 mmol/L (22-29); Chloride 99 mmol/L (98-107); Globulin 2.5 g/dL (1.3-4.6); Glucose 97 mg/dL (65-115); Lactate Dehydrogenase 210 U/L (135-214); Osmolality Calculated 277 mOsm/kg (285-295); Sodium 134 mmol/L (136-145); Thyroid Stimulating Hormone 0.38 uIU/mL (0.27-4.20); Total Bilirubin 0.2 mg/dL (0.15-1.2); Total Protein 6.3 g/dL (6.6-8.7)
[2023-12-20 15:43] LABS: Vitamin B12 > 2000 pg/mL (232-1245)
== END 2023-12-27 23:59 | disposition home or self-care (01) ==
LOC: ONCMED 13:48
PROVIDERS: PCP Family Medicine; Visit Provider Internal Medicine Medical Oncology
DX: C83.33 Diffuse large B-cell lymphoma, intra-abdominal lymph nodes (principal); R53.0 Neoplastic (malignant) related fatigue; R42 Dizziness and giddiness; Z87.891 Personal history of nicotine dependence; D80.1 Nonfamilial hypogammaglobulinemia; Z08 Encounter for follow-up examination after completed treatment for malignant neoplasm; F41.9 Anxiety disorder, unspecified; R53.83 Other fatigue; D64.9 Anemia, unspecified; Z85.72 Personal history of non-Hodgkin lymphomas
CPT/HCPCS: 36415; 80053; 82607; 83615; 84443; 85025; 85651

== ENCOUNTER → 2024-04-09 14:21 | Outpatient (BNVA) | payer MEDICARE, OTHER, SELFPAY | PROVIDERS: PCP Family Medicine; Visit Provider Nurse Practitioner Women's Health | DX: N39.0 Urinary tract infection, site not specified (principal) | CPT/HCPCS: 84315; 87077; 87086; 87184 ==

== ENCOUNTER → 2024-05-15 09:34 | Outpatient (BNVA) | payer MEDICARE, OTHER, SELFPAY | PROVIDERS: PCP Family Medicine; Visit Provider Nurse Practitioner Women's Health | DX: R30.0 Dysuria (principal) | CPT/HCPCS: 84315; 87086 ==

== ENCOUNTER → 2024-06-20 08:01 | Outpatient (BNVA) | payer MEDICARE, OTHER, SELFPAY | PROVIDERS: PCP Family Medicine; Visit Provider Nurse Practitioner Women's Health | DX: Z86.19 Personal history of other infectious and parasitic diseases (principal); N39.0 Urinary tract infection, site not specified | CPT/HCPCS: 84315; 87086 ==

== ENCOUNTER 2024-07-10 08:31 | Oncology outpatient (recurring) (ONCR) | payer MEDICARE, OTHER, SELFPAY ==
--- NOTE | 2024-07-10 09:30 | CTR_ITS ---
PROCEDURE INFORMATION: Exam: CT Chest With Contrast; Diagnostic Exam date and time: 07/10/2024 10:16 AM Age: 73 years old Clinical indication: Condition or disease; Other: Lymphoma; Prior surgery; Surgery date: 6+ months; Surgery type: Hyst; Additional info: Fu on lymphoma TECHNIQUE: Imaging protocol: Diagnostic computed tomography of the chest with contrast. Radiation optimization: All CT scans at this facility use at least one of these dose optimization techniques: automated exposure control; mA and/or kV adjustment per patient size (includes targeted exams where dose is matched to clinical indication); or iterative reconstruction. Contrast material: OMNI 350; Contrast volume: 100 ml; Contrast route: INTRAVENOUS (IV); COMPARISON: CT chest abdpel w/*[id number] 08/24/2023 9:33 AM RADIATION DOSE METRICS: Total DLP (mGy-cm): 411.75 FINDINGS: Lungs: Unremarkable. No consolidation. No masses. Pleural spaces: Unremarkable. No pneumothorax. No pleural effusion. Heart: Unremarkable. No cardiomegaly. No pericardial effusion. Lymph nodes: Unremarkable. No enlarged lymph nodes. Vasculature: Unremarkable. No aortic aneurysm. Bones/joints: Old right-sided rib fractures are noted. No acute bony abnormality is noted. Soft tissues: Unremarkable. PROCEDURE INFORMATION: Exam: CT Abdomen And Pelvis With Contrast Exam date and time: 07/10/2024 10:16 AM Age: 73 years old Clinical indication: Condition or disease; Other: Lymphoma; Prior surgery; Surgery date: 6+ months; Surgery type: Hyst; Additional info: Fu on lymphoma TECHNIQUE: Imaging protocol: Computed tomography of the abdomen and pelvis with contrast. Radiation optimization: All CT scans at this facility use at least one of these dose optimization techniques: automated exposure control; mA and/or kV adjustment per patient size (includes targeted exams where dose is matched to clinical indication); or iterative reconstruction. Contrast material: OMNI 350; Contrast volume: 100 ml; Contrast route: INTRAVENOUS (IV); COMPARISON: CT chest abdpel w/*[id number] 08/24/2023 9:33 AM RADIATION DOSE METRICS: Total DLP (mGy-cm): 411.75 FINDINGS: Lungs: Lung bases are clear. No pleural effusion. Liver: Normal. No mass. Gallbladder and biliary ducts: Normal. No calcified stones. No ductal dilation. Pancreas: Normal. No ductal dilation. Spleen: Normal. No splenomegaly. Adrenal glands: Normal. No mass. Kidneys and ureters: Normal. No hydronephrosis. Stomach and bowel: Unremarkable. No obstruction. No mucosal thickening. Appendix: No evidence of appendicitis. Intraperitoneal space: Unremarkable. No free air. No significant fluid collection. Vasculature: Unremarkable. No abdominal aortic aneurysm. Lymph nodes: Unremarkable. No enlarged lymph nodes. Urinary bladder: Unremarkable as visualized. Reproductive: Unremarkable as visualized. Bones/joints: Unremarkable. No acute fracture. Soft tissues: Unremarkable. CT[facility]/*[id number] IMPRESSION: There is no evidence of active neoplastic disease. IMPRESSION: No acute findings. There is no evidence of active neoplastic disease.
[2024-07-10 09:57] LABS: Blood Urea Nitrogen 9 mg/dL (8-23)
[2024-07-10] MEDS: iohexol 350 mg/mL 500 mL Btl (per mL) PO (11:22)
[2024-07-10] MEDS: iohexol 350 mg/mL 500 mL Btl (per mL) IV (11:22)
== END 2024-07-27 23:59 | disposition home or self-care (01) ==
LOC: RAD 08:34 → ONCMED 07-11 10:53
PROVIDERS: PCP Family Medicine; Visit Provider Family Medicine
DX: C83.33 Diffuse large B-cell lymphoma, intra-abdominal lymph nodes (principal); R53.0 Neoplastic (malignant) related fatigue; R42 Dizziness and giddiness; Z87.891 Personal history of nicotine dependence; D80.1 Nonfamilial hypogammaglobulinemia; Z08 Encounter for follow-up examination after completed treatment for malignant neoplasm; F41.9 Anxiety disorder, unspecified; R53.83 Other fatigue; D64.9 Anemia, unspecified; Z85.72 Personal history of non-Hodgkin lymphomas
CPT/HCPCS: 71260; 74177; 82565; 84520; Q9967

== ENCOUNTER → 2024-07-11 10:06 | Outpatient (BNVA) | payer MEDICARE, OTHER, SELFPAY | PROVIDERS: PCP Family Medicine; Visit Provider Nurse Practitioner Women's Health | DX: N39.0 Urinary tract infection, site not specified (principal) | CPT/HCPCS: 81000; 87086 ==

== ENCOUNTER → 2024-08-14 13:40 | Outpatient (BNVA) | payer MEDICARE, OTHER, SELFPAY | PROVIDERS: PCP Family Medicine; Visit Provider Nurse Practitioner Family | DX: L57.0 Actinic keratosis (principal); D17.22 Benign lipomatous neoplasm of skin and subcutaneous tissue of left arm; D22.72 Melanocytic nevi of left lower limb, including hip; L82.1 Other seborrheic keratosis; Z85.828 Personal history of other malignant neoplasm of skin | CPT/HCPCS: 99203 ==

== ENCOUNTER 2024-09-04 10:52 | Oncology outpatient (recurring) (ONCR) | payer MEDICARE, OTHER, SELFPAY ==
[2024-09-04 12:58] LABS: Eosinophils # 0.1 10^3/uL (0.0-0.8); Eosinophils % 1.5 %; Lymphocytes # 0.6 10^3/uL (0.8-4.8); Lymphocytes % 15.3 %; Mean Corpuscular HGB Conc 32.7 g/dL (30-55); Mean Corpuscular Hemoglobin 32.7 pg (27-33); Mean Platelet Volume 9.9 fL (7.4-10.4); Monocytes # 0.4 10^3/uL (0.2-0.9); Monocytes % 10.7 %; Neutrophils # 2.86 10^3/uL (1.8-7.7); Neutrophils % 69.1 %; Nucleated Red Blood Cells % 0 %; Platelet Count 211 10^3/cmm (157-399); Red Cell Distribution Width 12.5 % (12.1-15.1); White Blood Count 4.13 10^3/uL (3.29-11.43)
[2024-09-04 13:31] LABS: Alanine Aminotransferase 18 U/L (0-33); Albumin Level 4.3 g/dL (3.5-5.2); Alkaline Phosphatase 26 U/L (35-105); Anion Gap 14.2 (5-19); Aspartate Amino Transferase 24 U/L (0-32); Blood Urea Nitrogen 9 mg/dL (8-23); Calcium 9.2 mg/dL (8.5-10.5); Carbon Dioxide 22 mmol/L (22-29); Chloride 100 mmol/L (98-107); Creatinine Clr Calc Pharmacy 43.5835; Globulin 2.2 g/dL (1.3-4.6); Glucose 90 mg/dL (65-115); Lactate Dehydrogenase 249 U/L (135-214); Osmolality Calculated 272 mOsm/kg (285-295); Potassium 4.2 mmol/L (3.5-5.1); Sodium 132 mmol/L (136-145); Total Bilirubin 0.2 mg/dL (0.15-1.2); Total Protein 6.5 g/dL (6.6-8.7)
== END 2024-09-26 23:59 | disposition home or self-care (01) ==
PROVIDERS: Internal Medicine Medical Oncology; PCP Family Medicine; Visit Provider Family Medicine
DX: C83.33 Diffuse large B-cell lymphoma, intra-abdominal lymph nodes (principal); R53.83 Other fatigue; D64.9 Anemia, unspecified; Z87.891 Personal history of nicotine dependence
CPT/HCPCS: 36415; 80053; 83615; 85025; 99214

== ENCOUNTER 2024-10-14 12:22 | Outpatient (CLI) | payer MEDICARE, OTHER, SELFPAY ==
--- NOTE | 2024-10-14 12:30 | MM_ITS ---
WS: [email or web address] VIEWS: MLO and CC views both breasts. 3D digital tomosynthesis is also included in this exam. Comparison made with prior exam of 05/10/2017, 06/04/2020, 11/07/2022, 03/23/2007, 03/24/2008, 03/02/2009, .. Findings: The breasts are heterogeneously dense, which may obscure small masses. No suspicious mass, tumor calcification or architectural distortion. MM/MM scr BI tomosynthesis [id number] Impression: BI-RADS: 2 - Benign FOLLOW-UP: 1 Year Follow-up This mammogram was also analyzed by the Computer Aided Detection System R2 Imag e Horse Doctor.
== END 2024-10-14 12:23 | disposition home or self-care (01) ==
LOC: RAD 12:23
PROVIDERS: PCP Family Medicine; Visit Provider Nurse Practitioner Women's Health
DX: Z12.31 Encounter for screening mammogram for malignant neoplasm of breast (principal); R92.333 Mammographic heterogeneous density, bilateral breasts
CPT/HCPCS: 77063; 77067

== ENCOUNTER → 2024-10-29 15:20 | Outpatient (BNVA) | payer MEDICARE, OTHER, SELFPAY | PROVIDERS: PCP Family Medicine; Visit Provider Internal Medicine Cardiovascular Disease | DX: R07.9 Chest pain, unspecified (principal); I65.23 Occlusion and stenosis of bilateral carotid arteries; E78.5 Hyperlipidemia, unspecified; R53.83 Other fatigue; F41.9 Anxiety disorder, unspecified; C83.33 Diffuse large B-cell lymphoma, intra-abdominal lymph nodes; Z87.891 Personal history of nicotine dependence | CPT/HCPCS: 93005; 99214 ==

== ENCOUNTER 2024-11-06 16:19 | Outpatient (CLI) | payer MEDICARE, OTHER, SELFPAY ==
--- NOTE | 2024-11-06 16:30 | USCV_ITS ---
Kaylah Arce (Nichole) Age: 73 Gender: F : 1950 Exam Date: 11/06/2024 16:31 Ordering Phys: Patrick Yoo MD ([email or web address] Technologist: DURGA Exam Location: [facility] [place] Indication: carotid stenosis Risk Factors: Previous Vascular Surgery: Right Brachial BP: / Left Brachial BP: / Right Left Velocity (cm/s) Spectral Plaque Velocity (cm/s) Spectral Plaque Syst/Diast Broadening Syst/Diast Broadening 84.10/ 11.50 Prox CCA 93.10 / 15.70 82.60/ 18.00 Mid CCA 86.10 / 15.70 64.50/ 8.90 Distal CCA 87.80 / 17.40 50.30/ 8.30 Prox ICA 155.90/ 34.90 60.10/ 8.10 Mid ICA 102.10/ 17.70 57.70/ 8.10 Distal ICA 75.30 / 21.80 61.00 ECA 68.70 0.90 ICA/CCA 1.80 Antegrade Vertebral Antegrade 42.40/ 10.50 cm/s 68.10/ 14.70 cm/s Tri Subclavian Tri 62.50 145.1 0 FINDINGS Moderate irregular plaques at the right bifurcation and proximal internal carotid artery. Intimal thickening in the common carotid artery. Moderate to heavy heterogenous plaques of the left bifurcation and proximal internal carotid artery. Antegrade flow in the vertebral arteries bilaterally. Normal Doppler flow velocity in the external carotid, subclavian and vertebral arteries bilaterally CONCLUSIONS Moderate irregular plaques at the right bifurcation and proximal internal carotid artery with the Doppler features, suggesting less than 50% stenosis. Moderate to heavy heterogenous plaques of the left bifurcation and proximal internal carotid artery with the Doppler features, suggesting 50 to 69% stenosis Antegrade flow in the vertebral arteries bilaterally. Compared to the study from 01/18/2023, there may not be a significant change Dr Patrick Yoo MD [facility] (Electronically Signed) Final Date: 10 November 2024 20:14 S
== END 2024-11-06 16:20 | disposition home or self-care (01) ==
PROVIDERS: PCP Family Medicine; Visit Provider Internal Medicine Cardiovascular Disease
DX: I65.23 Occlusion and stenosis of bilateral carotid arteries (principal); I65.03 Occlusion and stenosis of bilateral vertebral arteries
CPT/HCPCS: 93880

== ENCOUNTER 2024-11-08 07:10 | Outpatient (CLI) | payer MEDICARE, OTHER, SELFPAY ==
[2024-11-08 07:39] VITALS: BMI 17.9
--- NOTE | 2024-11-08 07:44 | NMCV_ITS ---
NM nelida perf SPECT r/s* [id number] Kaylah Arce (Nichole) Age: 73 Gender: F : 1950 Exam Date: 11/08/2024 07:44 Ordering Phys: Patrick Yoo MD ([email or web address]) Technologist: DANY Lipscomb Exam Location: [facility] Indications: CP STRESS TEST Please see separate stress test report in [facility] for full findings IMAGE PROTOCOL Rest/Stress 1 Exercise Day Radiopharmaceutical Dose (mCi) Administration Site Administered by Rest: Tc-99m 10.8 IV Felisha Maya, AUDITOR TAX Sestamibi Stress:Tc-99m 32.5 IV Felisha Maya, AUDITOR TAX Sestamibi Rest: 08-Nov-2024 60 Discovery 630 Stress: 08-Nov-2024 30 Discovery 630 Radiopharmaceutical was injected at 96 % maximum heart rate. Images obtained in supine and prone position. SPECT RESULTS Technical Quality: Excellent Raw Data Analysis: Normal Image Corrections: No attenuation or motion correction applied Summed Stress Score: 1 Summed Rest Score: 1 Summed Difference Score: 0 PERFUSION FINDINGS Small area of slightly decreased tracer uptake was noted in the apical inferior wall region. No significant reversibility was noted in this area. Segmental wall motion analysis revealing no gross wall motion abnormalities FUNCTIONAL RESULTS (calculated via Gated SPECT) Stress Image LV EF (%): 71 Stress EDV (mL):75 TID: 1.07 Stress ESV (mL):22 FUNCTIONAL FINDINGS: Segmental wall motion analysis revealing no gross wall motion abnormalities IMPRESSIONS 1. Myocardial perfusion imaging revealing small area of slightly decreased persistent tracer uptake in the apical inferior wall region suggestive of myocardial scarring versus attenuation artifact 2. Normal LV ejection fraction 71%. 3. LV wall motion analysis revealing no gross wall motion abnormalities. 4. Normal LV volume Low probability for coronary ischemia, based on the above findings No similar previous studies are available for comparison Dr Patrick Yoo MD [facility] (Electronically Signed) Final Date: 08 November 2024 11:47 S
--- NOTE | 2024-11-08 07:44 | ECG_ITS ---
[facility] Test Date: 2024-11-08 Pat Name: Kaylah Arce (Terri) Department: Room: Gender: Female Hoop Maker: : 1950 Requested By: Patrick Yoo Order Number: [id number] Reading MD: Interpretive Statements Lung unchanged pre/post procedure; Intraprocedure shortess of breath; Symptoms resoled by discharge [email or web address]
[2024-11-08 09:02] VITALS: BP 169/55; PULSE 88
== END 2024-11-08 07:11 | disposition home or self-care (01) ==
LOC: CDL 07:11
PROVIDERS: PCP Family Medicine; Visit Provider Internal Medicine Cardiovascular Disease
DX: Z98.61 Coronary angioplasty status (principal); R06.02 Shortness of breath
CPT/HCPCS: 36415; 78452; 93017; A9500

== ENCOUNTER → 2024-12-12 13:49 | Outpatient (BNVA) | payer MEDICARE, OTHER, SELFPAY | PROVIDERS: PCP Family Medicine; Visit Provider Nurse Practitioner Family | DX: L57.0 Actinic keratosis (principal); L82.1 Other seborrheic keratosis; Z85.828 Personal history of other malignant neoplasm of skin; D48.5 Neoplasm of uncertain behavior of skin | CPT/HCPCS: 11102; 17000; 99213 ==

== ENCOUNTER 2024-12-18 09:09 | Oncology outpatient (recurring) (ONCR) | payer MEDICARE, OTHER, SELFPAY ==
[2024-12-18 09:50] LABS: Basophils % 0.7 %; Eosinophils # 0.1 10^3/uL (0.0-0.8); Eosinophils % 3.1 %; Lymphocytes # 0.6 10^3/uL (0.8-4.8); Lymphocytes % 14.2 %; Mean Corpuscular HGB Conc 33.1 g/dL (30-55); Mean Corpuscular Hemoglobin 32.6 pg (27-33); Mean Corpuscular Volume 98.5 fl (85-98); Mean Platelet Volume 8.9 fL (7.4-10.4); Monocytes # 0.5 10^3/uL (0.2-0.9); Monocytes % 11.8 %; Neutrophils # 2.83 10^3/uL (1.8-7.7); Nucleated Red Blood Cells % 0 %; Platelet Count 206 10^3/cmm (157-399); Red Blood Count 3.96 10^6/uL (3.85-5.65); Red Cell Distribution Width 11.9 % (12.1-15.1); White Blood Count 4.16 10^3/uL (3.29-11.43)
[2024-12-18 10:06] LABS: Alanine Aminotransferase 16 U/L (0-33); Albumin Level 4.5 g/dL (3.5-5.2); Alkaline Phosphatase 31 U/L (35-105); Anion Gap 17.9 (5-19); Aspartate Amino Transferase 22 U/L (0-32); Blood Urea Nitrogen 15 mg/dL (8-23); Calcium 9.7 mg/dL (8.5-10.5); Carbon Dioxide 22 mmol/L (22-29); Chloride 101 mmol/L (98-107); Globulin 2.8 g/dL (1.3-4.6); Glucose 67 mg/dL (65-115); Osmolality Calculated 283 mOsm/kg (285-295); Potassium 3.9 mmol/L (3.5-5.1); Sodium 137 mmol/L (136-145); Total Bilirubin 0.2 mg/dL (0.15-1.2); Total Protein 7.3 g/dL (6.6-8.7)
[2024-12-18 10:09] LABS: Lactate Dehydrogenase 298 U/L (135-214)
== END 2024-12-27 23:59 | disposition home or self-care (01) ==
PROVIDERS: Nurse Practitioner Family; PCP Family Medicine; Visit Provider Family Medicine
DX: Z08 Encounter for follow-up examination after completed treatment for malignant neoplasm (principal); Z85.72 Personal history of non-Hodgkin lymphomas; K59.00 Constipation, unspecified; Z87.891 Personal history of nicotine dependence; Z92.21 Personal history of antineoplastic chemotherapy; Z94.84 Stem cells transplant status
CPT/HCPCS: 36415; 80053; 83615; 85025; 99213

== ENCOUNTER → 2025-01-07 09:49 | Outpatient (BNVA) | payer MEDICARE, OTHER, SELFPAY | PROVIDERS: PCP Family Medicine; Visit Provider Dermatology | DX: C44.529 Squamous cell carcinoma of skin of other part of trunk (principal) | CPT/HCPCS: 12032; 17313 ==

== ENCOUNTER → 2025-01-27 09:48 | Outpatient (BNVA) | payer MEDICARE, OTHER, SELFPAY | PROVIDERS: PCP Family Medicine; Visit Provider Nurse Practitioner Family | DX: I65.21 Occlusion and stenosis of right carotid artery (principal); R53.83 Other fatigue; F41.9 Anxiety disorder, unspecified; R94.31 Abnormal electrocardiogram [ECG] [EKG]; C83.33 Diffuse large B-cell lymphoma, intra-abdominal lymph nodes; Z87.891 Personal history of nicotine dependence | CPT/HCPCS: 99213 ==

== ENCOUNTER → 2025-02-11 10:42 | Outpatient (BNVA) | payer MEDICARE, OTHER, SELFPAY | PROVIDERS: PCP Family Medicine; Visit Provider Nurse Practitioner Family | DX: L81.4 Other melanin hyperpigmentation (principal); X32.XXXA Exposure to sunlight, initial encounter; L82.1 Other seborrheic keratosis; Z08 Encounter for follow-up examination after completed treatment for malignant neoplasm; Z85.828 Personal history of other malignant neoplasm of skin; D48.5 Neoplasm of uncertain behavior of skin | CPT/HCPCS: 11102; 99213 ==

== ENCOUNTER → 2025-03-17 14:51 | Outpatient (BNVA) | payer MEDICARE, OTHER, SELFPAY | PROVIDERS: PCP Family Medicine; Visit Provider Dermatology | DX: C44.92 Squamous cell carcinoma of skin, unspecified (principal) | CPT/HCPCS: 99213 ==

== ENCOUNTER 2025-03-18 13:55 | Outpatient (CLI) | payer MEDICARE, OTHER, SELFPAY ==
--- NOTE | 2025-03-18 14:00 | XR_ITS ---
WS: [email or web address] SCREENING DEXA SCAN Shoutly CLINICAL INFORMATION: M81.0 - Age-related osteoporosis without current patholog... COMPARISON: 2022 FINDINGS: The L1-L4 bone mineral density measures 0.790 g/cm2. This corresponds to a T score score of -3.3 and Z score of -1.1. Left femoral neck bone mineral density measures 0.476 g/cm2. This corresponds to a T score of -4.2 and Z score of -2.3. Right femoral neck bone mineral density measures 0.488 g/cm2. This corresponds to a T score -4.1of and Z score of -2.2. Mean femoral neck bone mineral density measures 0.482 g/cm2. This corresponds to a T score of -4.2 and Z score of -2.3. XR/XR DEXA axial skeleton* [id number] IMPRESSION: Osteoporosis lumbar spine. Osteoporosis femoral necks. Patient's FRAX calculated 10 year probability for major osteoporotic fracture i s 43.2 % and osteoporotic hip fracture is 25.7%.
== END 2025-03-18 13:56 | disposition home or self-care (01) ==
LOC: RAD 13:56
PROVIDERS: PCP Family Medicine; Visit Provider Nurse Practitioner Women's Health
DX: M81.0 Age-related osteoporosis without current pathological fracture (principal)
CPT/HCPCS: 77080

== ENCOUNTER → 2025-03-24 08:15 | Outpatient (BNVA) | payer MEDICARE, OTHER, SELFPAY | PROVIDERS: PCP Family Medicine; Visit Provider Dermatology | DX: L57.0 Actinic keratosis (principal); C44.519 Basal cell carcinoma of skin of other part of trunk | CPT/HCPCS: 12032; 17313; 99213 ==

== ENCOUNTER → 2025-04-14 11:15 | Outpatient (BNVA) | payer MEDICARE, OTHER, SELFPAY | PROVIDERS: PCP Family Medicine; Visit Provider Family Medicine | DX: M81.0 Age-related osteoporosis without current pathological fracture (principal); R53.83 Other fatigue; F41.9 Anxiety disorder, unspecified | CPT/HCPCS: 82306; 82310; 83970; 84439; 84443 ==

== ENCOUNTER 2025-05-01 13:58 | Oncology outpatient (recurring) (ONCR) | payer MEDICARE, OTHER, SELFPAY ==
[2025-05-01 14:20] LABS: Basophils % 0.8 %; Eosinophils # 0.1 10^3/uL (0.0-0.8); Eosinophils % 2.5 %; Hematocrit 36.1 % (36-47); Lymphocytes # 0.5 10^3/uL (0.8-4.8); Mean Corpuscular HGB Conc 33.2 g/dL (30-55); Mean Corpuscular Hemoglobin 32.8 pg (27-33); Mean Corpuscular Volume 98.6 fl (85-98); Mean Platelet Volume 9.3 fL (7.4-10.4); Monocytes # 0.4 10^3/uL (0.2-0.9); Monocytes % 8.3 %; Neutrophils # 3.63 10^3/uL (1.8-7.7); Neutrophils % 77.1 %; Nucleated Red Blood Cells % 0 %; Platelet Count 190 10^3/cmm (157-399); Red Blood Count 3.66 10^6/uL (3.85-5.65); Red Cell Distribution Width 11.9 % (12.1-15.1); White Blood Count 4.71 10^3/uL (3.29-11.43)
[2025-05-01 14:28] LABS: Erythrocyte Sedimentation Rate 5 mm/hr (0-15)
[2025-05-01 14:39] LABS: Alanine Aminotransferase 16 U/L (0-33); Albumin Level 4.3 g/dL (3.5-5.2); Alkaline Phosphatase 26 U/L (35-105); Anion Gap 17.9 (5-19); Aspartate Amino Transferase 20 U/L (0-32); Blood Urea Nitrogen 14 mg/dL (8-23); Calcium 9.3 mg/dL (8.5-10.5); Carbon Dioxide 20 mmol/L (22-29); Chloride 102 mmol/L (98-107); Globulin 2.3 g/dL (1.3-4.6); Glucose 89 mg/dL (65-115); Lactate Dehydrogenase 200 U/L (135-214); Osmolality Calculated 282 mOsm/kg (285-295); Potassium 3.9 mmol/L (3.5-5.1); Sodium 136 mmol/L (136-145); Total Bilirubin 0.2 mg/dL (0.15-1.2); Total Protein 6.6 g/dL (6.6-8.7)
[2025-05-02 13:54] LABS: Beta-2-Microglobulin 2.96 mg/L (< OR = 2.51)
== END 2025-05-26 23:59 | disposition home or self-care (01) ==
PROVIDERS: Internal Medicine; PCP Family Medicine; Visit Provider Family Medicine
DX: Z08 Encounter for follow-up examination after completed treatment for malignant neoplasm (principal); Z85.72 Personal history of non-Hodgkin lymphomas; R03.0 Elevated blood-pressure reading, without diagnosis of hypertension; F41.9 Anxiety disorder, unspecified; Z87.891 Personal history of nicotine dependence; Z92.21 Personal history of antineoplastic chemotherapy
CPT/HCPCS: 36415; 80053; 82232; 83615; 85025; 85651; 99214

== ENCOUNTER → 2025-05-05 11:22 | Outpatient (BNVA) | payer MEDICARE, OTHER, SELFPAY | PROVIDERS: PCP Family Medicine; Visit Provider Nurse Practitioner Family | DX: L23.9 Allergic contact dermatitis, unspecified cause (principal); D22.5 Melanocytic nevi of trunk | CPT/HCPCS: 99213 ==

== ENCOUNTER 2025-05-29 14:04 | Outpatient (RCR) | payer MEDICARE, OTHER, SELFPAY | END 2025-06-26 23:55 | disposition home or self-care (01) | LOC: SPT 14:04 | PROVIDERS: PCP Family Medicine; Visit Provider Family Medicine | DX: M54.2 Cervicalgia (principal); G89.29 Other chronic pain | CPT/HCPCS: 97110; 97161 ==

== ENCOUNTER → 2025-06-13 09:36 | Outpatient (BNVA) | payer MEDICARE, OTHER, SELFPAY | PROVIDERS: PCP Family Medicine; Visit Provider Nurse Practitioner Family | DX: D22.72 Melanocytic nevi of left lower limb, including hip (principal); L57.8 Other skin changes due to chronic exposure to nonionizing radiation; X32.XXXA Exposure to sunlight, initial encounter; L81.4 Other melanin hyperpigmentation; L57.0 Actinic keratosis; Z08 Encounter for follow-up examination after completed treatment for malignant neoplasm; Z85.828 Personal history of other malignant neoplasm of skin | CPT/HCPCS: 17000; 99213 ==

== ENCOUNTER 2025-06-25 11:01 | Outpatient (CLI) | payer MEDICARE, OTHER, SELFPAY ==
--- NOTE | 2025-06-25 11:15 | CT_ITS ---
WS: [email or web address] LDCT LUNG CANCER SCREENING TECHNIQUE: Noncontrast CT of the chest with coronal and sagittal reformatted images. CLINICAL INFORMATION: screening; quit 10yrs ago; 24pk yr COMPARISON: 06/2024 DLP: 43.50 mGy.cm DIvol: Mean CTDIvol: 0.70 (mGy) All CT scans at [facility] use at least one of these dose optimization techniques: automated exposure control; mA and/or kV adjustment per patient size (includes targeted exams where dose is matched to clinical indication); or iterative reconstruction. FINDINGS: No suspicious pulmonary parenchymal abnormalities. A few tiny scattered micronodules. Calcified granuloma RIGHT lower lobe. Chronic RIGHT rib fractures with callus formation. Aortic calcification. No mediastinal or hilar lymphadenopathy. Tiny pericardial effusion. No axillary lymphadenopathy. Mild thoracic curve. Moderate thoracic kyphosis. CT/CT lung screening [id number] IMPRESSION: LUNG-RADS: 2-Benign Appearance or Behavior FOLLOW UP: 12 Month: Continue annual screening with LDCT
--- NOTE | 2025-06-25 11:27 | XR_ITS ---
WS: [email or web address] Cervical spine, 3 views, 06/25/2025 Clinical Data: chronic neck pain Comparison: None. Findings: No compression fractures are seen. There is degenerative disc narrowing at C4-C5 and C5-C6 with osteoarthritis. There is no prevertebral soft tissue swelling. The odontoid is unremarkable. The soft tissues of the neck show bilateral carotid calcifications. 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
--- NOTE | 2025-06-25 11:27 | XR_ITS ---
WS: [email or web address] Lumbar spine, AP and lateral views, 06/25/2025 Clinical Data: chronic low back pain Comparison: None. Findings: No compression fractures or subluxation is seen. No disc space narrowing is seen. The transverse processes and SI joints are normal. There is a levoscoliosis. The abdominal aorta shows calcification of the wall but no aneurysm. XR/XR lumbar spine 2-3V* [id number] Impression: Levoscoliosis of the lumbar spine.
== END 2025-06-25 11:02 | disposition home or self-care (01) ==
LOC: RAD 11:02
PROVIDERS: PCP Family Medicine; Visit Provider Family Medicine
DX: F17.211 Nicotine dependence, cigarettes, in remission (principal); M54.50 Low back pain, unspecified; G89.29 Other chronic pain; M54.2 Cervicalgia
CPT/HCPCS: 71271; 72040; 72100

== ENCOUNTER 2025-06-27 06:30 | Outpatient (RCR) | payer MEDICARE, OTHER, SELFPAY | END 2025-07-27 23:59 | disposition home or self-care (01) | LOC: SPT 06:30 | PROVIDERS: PCP Family Medicine; Visit Provider Family Medicine | DX: M54.2 Cervicalgia (principal); G89.29 Other chronic pain | CPT/HCPCS: 97110 ==

== ENCOUNTER 2025-07-02 08:48 | Outpatient (CLI) | payer MEDICARE, OTHER, SELFPAY ==
--- NOTE | 2025-07-02 09:00 | CT_ITS ---
WS: [id number] CT CERVICAL SPINE HISTORY: neck pain; past surgery TECHNIQUE: Contiguous 2.0 mm axial imaging performed through the entire cervical spine. Sagittal and coronal reformats also performed. All CT scans at [facility] use at least one of these dose optimization techniques: automated exposure control; mA and/or kV adjustment per patient size (includes targeted exams where dose is matched to clinical indication); or iterative reconstruction. DLP: 151.17 mGy.cm COMPARISON: None available. Normal cervical alignment. Craniocervical junction, atlantodental interval and C1-C2 alignment is normal. C2-C3: Normal. C3-C4: Moderate LEFT facet joint arthropathy. Small central disc protrusion. Mild LEFT foraminal stenosis. C4-C5: Mild osteophytic ridging with very mild facet arthropathy. Mild RIGHT foraminal stenosis. C5-C6: Moderate osteophytic ridging with encroachment upon the ventral thecal sac. Mild facet arthritis. Mild central stenosis. C6-C7: Very minimal osteophytic ridging. Mild bilateral foraminal stenosis. C7-T1: Normal. Calcified granuloma LEFT apex. Dense calcified plaque in the cervical carotid arteries at the bifurcations. Mild cerebellar atrophy. CT/CT cervical spin wo con* [id number] IMPRESSION: 1. Multilevel mild facet joint arthropathy. Moderate facet joint arthropathy o n the LEFT at C3-4. 2. No high-grade central or foraminal stenosis. 3. Mild central stenosis at C5-6. 4. Mild bilateral foraminal stenosis at C6-7, LEFT at C3-4 and RIGHT C4-5.
== END 2025-07-02 08:49 | disposition home or self-care (01) ==
LOC: RAD 08:49
PROVIDERS: PCP Family Medicine; Visit Provider Family Medicine
DX: M47.892 Other spondylosis, cervical region (principal); G89.29 Other chronic pain
CPT/HCPCS: 72125

== ENCOUNTER 2025-07-28 05:00 | Outpatient (RCR) | payer MEDICARE, OTHER, SELFPAY | END 2025-08-26 23:59 | disposition home or self-care (01) | LOC: SPT 05:00 | PROVIDERS: PCP Family Medicine; Visit Provider Family Medicine | DX: M54.2 Cervicalgia (principal); G89.29 Other chronic pain | CPT/HCPCS: 97110 ==

== ENCOUNTER → 2025-08-13 13:50 | Outpatient (BNVA) | payer MEDICARE, OTHER, SELFPAY | PROVIDERS: PCP Family Medicine; Visit Provider Internal Medicine Cardiovascular Disease | DX: R55 Syncope and collapse (principal); I65.21 Occlusion and stenosis of right carotid artery; F41.9 Anxiety disorder, unspecified; R94.31 Abnormal electrocardiogram [ECG] [EKG]; C83.33 Diffuse large B-cell lymphoma, intra-abdominal lymph nodes; Z87.891 Personal history of nicotine dependence; I65.23 Occlusion and stenosis of bilateral carotid arteries | CPT/HCPCS: 99214 ==

== ENCOUNTER 2025-08-20 08:52 | Oncology outpatient (recurring) (ONCR) | payer MEDICARE, OTHER, SELFPAY ==
[2025-08-20 09:15] LABS: Hematocrit 35.4 % (36-47); Hemoglobin 11.90 g/dL (11.27-16.99); Mean Corpuscular HGB Conc 33.6 g/dL (30-55); Mean Corpuscular Hemoglobin 32.5 pg (27-33); Mean Corpuscular Volume 96.7 fl (85-98); Nucleated Red Blood Cells % 0 %; Platelet Count 218 10^3/cmm (157-399); Red Blood Count 3.66 10^6/uL (3.85-5.65); White Blood Count 5.73 10^3/uL (3.29-11.43)
[2025-08-20 09:46] LABS: Alanine Aminotransferase 14 U/L (0-33); Albumin Level 4.2 g/dL (3.5-5.2); Alkaline Phosphatase 28 U/L (35-105); Anion Gap 15.2 (5-19); Aspartate Amino Transferase 18 U/L (0-32); Blood Urea Nitrogen 11 mg/dL (8-23); Calcium 9.3 mg/dL (8.5-10.5); Carbon Dioxide 23 mmol/L (22-29); Chloride 100 mmol/L (98-107); Creatinine Clr Calc Pharmacy 43.9139; Globulin 2.3 g/dL (1.3-4.6); Glucose 107 mg/dL (65-115); Osmolality Calculated 278 mOsm/kg (285-295); Potassium 4.2 mmol/L (3.5-5.1); Sodium 134 mmol/L (136-145); Total Protein 6.5 g/dL (6.6-8.7)
== END 2025-08-26 23:59 | disposition home or self-care (01) ==
PROVIDERS: Nurse Practitioner Family; PCP Family Medicine; Visit Provider Family Medicine
DX: Z08 Encounter for follow-up examination after completed treatment for malignant neoplasm (principal); Z85.72 Personal history of non-Hodgkin lymphomas; Z87.891 Personal history of nicotine dependence; R05.3 Chronic cough; K21.9 Gastro-esophageal reflux disease without esophagitis; R53.83 Other fatigue
CPT/HCPCS: 36415; 80053; 83615; 85025; 99214

== ENCOUNTER 2025-09-29 09:25 | Oncology outpatient (recurring) (ONCR) | payer MEDICARE, OTHER, SELFPAY ==
--- NOTE | 2025-09-29 09:30 | USCV_ITS ---
Claude Kaylah (Nichole) Age: 74 Gender: F : 1950 Exam Date: 09/29/2025 09:42 Ordering Phys: Patrick Yoo MD ([email or web address]) Technologist: LAINE Exam Location: [facility] [place] Indication: stenosis Risk Factors: Previous Vascular Surgery: Right Brachial BP: / Left Brachial BP: / Right Left Velocity (cm/s) Spectral Plaque Velocity (cm/s) Spectral Plaque Syst/Diast Broadening Syst/Diast Broadening 97.00/ 14.10 Prox CCA 96.00 / 15.70 69.70/ 14.10 Mid CCA 75.30 / 13.80 83.90/ 21.90 Distal CCA 68.10 / 19.20 88.40/ 22.90 Prox ICA 194.50/ 36.90 94.90/ 29.90 Mid ICA 87.50 / 19.20 87.60/ 24.50 Distal ICA 44.60 / 12.20 68.40 ECA 64.40 1.10 ICA/CCA 2.90 Antegrade Vertebral Antegrade 62.40/ 10.10 cm/s 75.10/ 16.50 cm/s Tri Subclavian Tri 289.6 115.9 0 0 FINDINGS comp 2023 CONCLUSIONS Right ICA stenosis <50%. Moderate atheromatous plaque right carotid bulb/ICA. Left ICA stenosis 50-69% progressed since 11/19. . Moderate atheromatous plaque left carotid bulb/ICA. Intimal thickening in the common carotid arteries and internal carotid arteries bilaterally. Normal antegrade Doppler flow noted in the right vertebral artery. Normal antegrade Doppler flow noted in the left vertebral artery. Irvin Khanna MD (Electronically Signed) Final Date: 29 September 2025 13:26 S
== END 2025-10-26 23:59 | disposition home or self-care (01) ==
LOC: RAD 09:26 → ONCMED 09:30
PROVIDERS: PCP Family Medicine; Visit Provider Family Medicine
DX: I65.23 Occlusion and stenosis of bilateral carotid arteries (principal)
CPT/HCPCS: 93880

== ENCOUNTER 2025-10-13 18:32 | Emergency (ER) | payer MEDICARE, OTHER, SELFPAY ==
[2025-10-13 18:28] VITALS: BP 160/89; PULSE 91; RESP 18; TEMP 37; O2SAT 94; BMI 18.1
--- NOTE | 2025-10-13 18:45 | XRR_ITS ---
PROCEDURE INFORMATION: Exam: XR Chest Exam date and time: 10/13/2025 7:09 PM Age: 74 years old Clinical indication: Shortness of breath; Prior surgery; Surgery date: 6+ months; Surgery type: HX right chest tubes; Additional info: Short of breath TECHNIQUE: Imaging protocol: Radiologic exam of the chest. Views: 1 view. COMPARISON: CT lung screening [id number] 06/25/2025 11:24 AM FINDINGS: Lungs: Lungs are hyperinflated no consolidation Pleural spaces: Unremarkable. No pleural effusion. No pneumothorax. Heart/Mediastinum: Heart normal size. Bones/joints: There are findings of old healed right lateral rib fracture deformities involving the right lateral 7th and 8th ribs. XR/XR chest 1V portable [id number] IMPRESSION: Hyperinflation no consolidation.
[2025-10-13 18:59] VITALS: BP 160/89; O2SAT 96
--- NOTE | 2025-10-13 19:03 | W.ED.GENADLT ---
HPI - General Adult General: Chief complaint: General Medical Stated complaint: ickness x 10 days - chest pain - n/v Time Seen by Provider: 10/13/25 18:44 History of Present Illness: Patient is 74-year-old female with history of hypogammaglobinemia, previous pneumothorax, presents to the emergency room due to shortness of breath, weakness x 10 days. No known sick exposure. No fevers. Nonproductive cough is worse. Since her previous pneumothorax 2 years ago, this has been present with a nonproductive cough, however she states it is worse. She was able to go to spiritism just over a week ago, and fellow sabianist members stated she appeared to be short winded. She has not seen a primary care physician. No urinary symptoms. Associated symptoms: Reports dyspnea and malaise; Deny chest pain, headache(s), nausea, rash, palpitations or vomiting Related Data Home Medications ?Medication ?Instructions ?Recorded ?Confirmed [id number]-[id number] 250 1 tab PO Q6H PRN Pain 06/10/20 08/20/25 mg-250 mg-65 mg tablet (Excedrin Extra Strength) ascorbic acid (vitamin C) 500 mg 2,000 mg PO DAILY 09/27/21 08/20/25 capsule cholecalciferol (vitamin D3) 25 25 mcg PO DAILY 07/20/22 08/20/25 mcg (1,000 unit) capsule cyanocobalamin (vitamin B-12) 50 50 mcg PO DAILY 01/19/23 08/20/25 mcg tablet (Vitamin B-12) Previous Rx's ?Medication ?Instructions ?Recorded aspirin 81 mg tablet 81 mg PO DAILY #90 tabs 04/14/25 esomeprazole magnesium 40 mg 40 mg PO QAM #90 caps 04/14/25 capsule,delayed release ondansetron HCl 4 mg tablet See Rx Instructions .Route 05/06/25 .COMPLEX #120 tabs estradiol 0.01% (0.1 mg/gram) See Rx Instructions .Route 06/12/25 vaginal cream .COMPLEX #42.5 grams klacykjc-dujrcouft-rxgkzfwu 3.5 2 drp ophthalmic (eye) QID 5 days 06/16/25 mg/mL-10,000 unit/mL-0.1% eye #5 mL drops (Maxitrol) alendronate 70 mg tablet See Rx Instructions .Route 06/20/25 .COMPLEX #10 tabs alprazolam 0.5 mg tablet 0.5 mg PO TID PRN anxiety #90 tabs 07/29/25 azithromycin 250 mg tablet See Rx Instructions PO .COMPLEX #6 10/13/25 (Zithromax Z-Amish) tabs methylprednisolone 4 mg tablets in See Rx Instructions PO .COMPLEX 10/13/25 a dose pack (Medrol (Amish)) #21 ea Allergies Allergy/AdvReac Type Severity Reaction Status Date / Time venlafaxine (From Effexor) AdvReac Mild ADR-Vomitin Verified 08/20/25 09:02 g sulfamethoxazole (From AdvReac ADR-Nausea Verified 08/20/25 09:02 Bactrim) trimethoprim (From Bactrim) AdvReac ADR-Nausea Verified 08/20/25 09:02 Review of Systems General: Reports: 10 or more systems reviewed and unremarkable except in HPI and below Const: Reports: fatigue and malaise; Denies: fever(s) or chills Eyes: Denies: change in vision or blurry vision ENMT: Reports: nasal discharge and nasal congestion; Denies: throat pain, dry mouth or nasal obstruction Card: Denies: chest pain or palpitations Resp: Reports: dyspnea and non-productive cough; Denies: wheezing, change in phlegm color or hemoptysis GI: Denies: abdominal pain, nausea or vomiting : Denies: flank pain or difficulty voiding Musc: Denies: neck pain or back pain Skin/Breast: Denies: rash or pruritus Neuro: Denies: headache(s) or numbness in extremities Psych: Denies: anxiety or depression [facility] PFSH: Medical History (Updated 10/13/25 @ 19:53 by PAT Lucas) Screening for lung cancer quit smoking 2014; 24pk yr hx; last CT 07.10.24 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 Haywood now, has had basal cells removed Nicotine dependence, cigarettes, in remission had CT last year Chronic coughing neg CT Chest 07/20; hx of rib fractures/chest tubes prior Chronic GERD without esophagitis Syncope reports long history of this; has had testing; can feel it coming on when it happens Diffuse large b-cell lymphoma, intra-abdominal lymph nodes sees oncology; had Car T cell therapy in [place] Osteoporosis dxed 2022; start fosamax--minimal improvement on 2024 DEXA History of ESBL E. coli infection Hypogammaglobulinemia History of treatment related hypogammaglobulinemia Chronic anxiety Constipation Recurrent UTI vaginal estrogen has helped Surgical History Hemothorax with pneumothorax, traumatic (~12/2022) had to have chest tubes R side, after fall and rib fxes; History of bone marrow biopsy Hx of cataract surgery 2017--bilateral S/P tubal ligation 1989--laparoscopic History of bilateral breast biopsy 1994--benign per patient Family History Father Heart disease Mother Asthma Grandmother Diabetes maternal Cervical cancer paternal Family/Other Diabetes Maternal uncles Son Thyroid disease Denies family history of Colon cancer Ovarian cancer Hyperlipidemia Breast cancer Hypertension Uterine cancer Stroke Social History Smoking and tobacco/nicotine status: former use of tobacco/nicotine Quit status (tobacco/nicotine): has quit using Year quit tobacco: 2014 Former quit date comment: started 32; 4ppd X 32yrs = 24 pk yr Alcohol intake: current Alcohol intake frequency: holidays/special occasions only Alcohol type: other Substance/Drug Use: never Household members: none Marital status: Number of children: 2 Highest education level completed: Some College, No Degree Current occupational status: retired Previous occupational history: patient accounts at [employer] Female Reproductive History: Spontaneous abortions: No Physical Exam Const: COMMON NORMALS: no acute distress, average body habitus, patient oriented x3, no limitations and alert HENMT: COMMON NORMALS: normocephalic and atraumatic HEAD & SCALP: normocephalic and atraumatic Neck/C-Spine: COMMON NORMALS: full ROM, no lymphadenopathy and supple Lymph: LYMPHATIC: no lymphadenopathy noted Chest: COMMONS NORMALS: normal inspection of the chest and normal palpation of entire chest wall Resp: COMMON NORMALS: normal respiratory effort and No retractions Cardio: COMMON NORMALS: regular rate and regular rhythm RATE: regular rate RHYTHM: regular rhythm GI: COMMON NORMALS: Normal to inspection, nondistended, normoactive bowel sounds present, Soft to palpation and non-tender PALPATION: Yes Soft to palpation : COMMON NORMALS: Yes no CVA tenderness BLADDER/KIDNEY EXAM: Yes no CVA tenderness Back/Pelvis: COMMON NORMALS: no CVA tenderness Extremity: COMMON NORMALS: normal to inspection, full ROM and capillary refill normal Neuro: COMMON NORMALS: patient oriented x3 SENSORIUM/ORIENTATION: Yes alert Course Vital Signs: Vital signs: Vital Signs Temperature 98.6 F 10/13/25 18:28 Pulse Rate 91 10/13/25 18:28 Respiratory Rate 18 10/13/25 18:28 Blood Pressure 156/81 10/13/25 20:11 Pulse Oximetry 95 10/13/25 20:11 Oxygen Delivery Me thod Room Air 10/13/25 20:11 MDM - General Adult Medical Decision Making Patient is 74-year-old female that is frustrated with ongoing weakness, malaise, shortness of breath, and cough. X-ray is negative for infiltrate. Procalcitonin is pending. Regardless, we will most likely treat her with both Medrol Dosepak given her shortness of breath, and cover her for pneumonia with azithromycin. Will further await labs for further designation making. She is out of the window for COVID, flu so therefore no reason to check at this juncture. Medical Records I reviewed the patient's medical records. Lab Data 10/13/25 19:29 10/13/25 19:29 Radiology Impressions Chest X-Ray 10/13/25 18:45 IMPRESSION: Hyperinflation no consolidation. Laboratory Results WBC 5.59 10^3/uL (3.29-11.43) 10/13/25 19: RBC 3.41 10^6/uL (3.85-5.65) L 10/13/25 19:29 Hgb 10.80 g/dL (11.27-16.99) L 10/13/25 19: Hct 32.6 % (36-47) L 10/13/25 19: MCV 95.6 fl (85-98) 10/13/25 19: MCH 31.7 pg (27-33) 10/13/25: MCHC 33.1 g/dL (30-55) 10/13/25: RDW 11.6 % (12.1-15.1) L 10/13/25: Plt Count 307 10^3/cmm (157-399) 10/13/25: MPV 9.2 fL (7.4-10.4) 10/13/25: Neut % (Auto) 76.0 % 10/13/25: Lymph % (Auto) 3.4 % 10/13/25: Brooks % (Auto) 10.6 % 10/13/25: Eos % (Auto) 0.0 % 10/13/25 Baso % (Auto) 1.1 % 10/13/25 Neut # (Auto) 4.25 10^3/uL (1.8-7.7) 10/13/25 Lymph # (Auto) 0.2 10^3/uL (0.8-4.8) L 10/13/25: Brooks # (Auto) 0.6 10^3/uL (0.2-0.9) 10/13/25: Eos # (Auto) 0.0 10^3/uL (0.0-0.8) 10/13/25: Baso # (Auto) 0.1 10^3/uL (0.0-0.1) 10/13/25 Nucleated RBC % (auto) 0 % 10/13/25 Nucleated RBCs # 0.0 /100WBC 10/13/25: Lactic Acid 0.8 mmol/L (0.5-2.2) 10/13/25: Urine Color Yellow (Yellow) 10/13/25: Urine Appearance Cloudy (CLEAR) A 10/13/25: Urine pH 7.0 (5-7) 10/13/25: Ur Specific [place] 1.007 (1.005-1.030) 10/13/25: Urine Protein Trace (Negative) A 10/13/25: Urine Glucose (UA) Negative (Normal) 11/17/25 19:10 Urine Ketones 2+ (Negative) H 10/13/25 19:10 Urine Blood Negative (Negative) 10/13/25 19:10 Urine Nitrate Negative (Negative) 10/13/25 19:10 Urine Bilirubin Negative (Negative) 10/13/25 19:10 Urine Urobilinogen 0.2 mg/dL (Negative) 10/13/25 19:10 Ur Leukocyte Esterase Trace (Negative) A 10/13/25 19:10 Urine RBC 0-4 /hpf (0-2) H 10/13/25 19:10 Urine WBC 6-10 /hpf (0-5) 10/13/25 19:10 Ur Squamous Epith Cells 0-5 /hpf (0-5) 10/13/25 19:10 Amorphous Sediment Not Reportable 10/13/25 19:10 Urine Bacteria 2+ /hpf (NONE) H 10/13/25 19:10 Hyaline Casts 0.40 /lpf 10/13/25 19:10 All radiology interpretation(s) finalized by discharge ED provider radiology interpretation(s): No acute findings Discharge Plan Discharge Patient Disposition: Home Clinical Impression: Viral respiratory illness Condition: Stable Prescriptions: New methylprednisolone [Medrol (Amish)] 4 mg tablets,dose pack See Rx Instructions .ROUTE .COMPLEX Qty: 21 0RF Rx Instructions: for 6 days azithromycin [Zithromax Z-Amish] 250 mg tablet See Rx Instructions PO .COMPLEX Qty: 6 0RF Rx Instructions: For 250 mg dose pack: take 500 mg today (day 1), then 250 mg for 4 days (days 2-5) No Action cholecalciferol (vitamin D3) 25 mcg (1,000 unit) capsule 25 mcg PO DAILY ascorbic acid (vitamin C) 500 mg capsule 2,000 mg PO DAILY Excedrin Extra Strength 250-250-65 mg tablet 1 tab PO Q6H PRN (Reason: Pain) aspirin 81 mg tablet 81 mg PO DAILY Qty: 90 0RF esomeprazole magnesium 40 mg capsule,delayed release(DR/EC) 40 mg PO QAM Qty: 90 1RF alendronate 70 mg tablet See Rx Instructions .ROUTE .COMPLEX Qty: 10 3RF Dose Instruction: TAKE 1 TABLET BY MOUTH every week. STAY UPRIGHT FOR ONE HOUR AFTER TAKING FOR ITCHING Rx Instructions: TAKE 1 TABLET BY MOUTH every week. STAY UPRIGHT FOR ONE HOUR AFTER TAKING FOR ITCHING neomycin-polymyxin B-dexameth [Maxitrol] 3.5mg/mL-10,000 unit/mL-0.1 % drops,suspension 2 drp ophthalmic (eye) QID 5 Days Qty: 5 0RF ondansetron HCl 4 mg tablet See Rx Instructions .ROUTE .COMPLEX Qty: 120 6RF Dose Instruction: TAKE 1 TABLET BY MOUTH EVERY 6 HOURS NEEDED FOR NAUSEA AND VOMITING Rx Instructions: TAKE 1 TABLET BY MOUTH EVERY 6 HOURS NEEDED FOR NAUSEA AND VOMITING estradiol 0.01 % (0.1 mg/gram) cream See Rx Instructions .ROUTE .COMPLEX Qty: 42.5 3RF Dose Instruction: USE ONE grams in THE VAGINA AT BEDTIME FOR TWO weeks THEN decrease TO twice weekly ON monday and monday Rx Instructions: USE ONE grams in THE VAGINA AT BEDTIME FOR TWO weeks THEN decrease TO twice weekly ON monday and monday alprazolam 0.5 mg tablet 0.5 mg PO TID MDD 1 mg PRN (Reason: anxiety) Qty: 90 2RF Vitamin B-12 50 mcg Tablet 50 mcg PO DAILY Discharge Orders: Discharge ED (Routine); Ordered 10/13/25 Ordered By: Melody Hayden Referrals: Zainab Pennington MD [Primary Care Provider, Family Practice] Patient Instructions: Viral Syndrome (ED), Patient Portal & Lucy Instructions Activity Restrictions/Additional Instructions: - Eat foods rich in iron and protein - Increase activity as tolerated - Drink appropriate amount of fluids daily - This appears to be consistent with viral syndrome. Multivitamins, zinc, vitamin C are all recommended - Return to ED if you have worsening symptoms. Make sure you make an appointment with your primary care physician this week Thank you for choosing [facility] for your healthcare needs today. You have been screened and evaluated and felt safe for discharge. Health conditions do change or evolve sometimes and as such it is important that you follow up with your Primary Doctor to be re checked, 3-5 days is a general good time frame for follow up. You are always welcome to return to the ED for re assessment if your symptoms are worsening or you have new concerns Print Language: Bahraini Coding Level of Care Code ED [employer] Pourer for Tiera Rosenthal
[2025-10-13 19:25] LABS: Glucose Urine UA Negative (Normal); Nitrate Urine Negative (Negative); Specific Gravity, Urine 1.007 (1.005-1.030)
[2025-10-13 19:30] LABS: Add Urine Microscopic? YES
[2025-10-13 20:04] LABS: Hematocrit 32.6 % (36-47); Hemoglobin 10.80 g/dL (11.27-16.99); Mean Corpuscular HGB Conc 33.1 g/dL (30-55); Mean Corpuscular Hemoglobin 31.7 pg (27-33); Mean Corpuscular Volume 95.6 fl (85-98); Nucleated Red Blood Cells % 0 %; Platelet Count 307 10^3/cmm (157-399); Red Blood Count 3.41 10^6/uL (3.85-5.65); White Blood Count 5.59 10^3/uL (3.29-11.43)
[2025-10-13 20:11] VITALS: BP 156/81; O2SAT 95
[2025-10-13 20:18] LABS: Slide Review Slide Review Perform
[2025-10-13 20:24] LABS: Lactic Sepsis W/Reflex 0.8 mmol/L (0.5-2.2)
[2025-10-13 20:35] LABS: Procalcitonin 0.28 ng/mL (0-0.5)
[2025-10-13 20:46] LABS: Alanine Aminotransferase 14 U/L (0-33); Albumin Level 3.5 g/dL (3.5-5.2); Alkaline Phosphatase 32 U/L (35-105); Anion Gap 17.6 (5-19); Aspartate Amino Transferase 23 U/L (0-32); Blood Urea Nitrogen 6 mg/dL (8-23); Calcium 8.2 mg/dL (8.5-10.5); Carbon Dioxide 21 mmol/L (22-29); Chloride 97 mmol/L (98-107); Globulin 2.9 g/dL (1.3-4.6); Glucose 94 mg/dL (65-115); Osmolality Calculated 271 mOsm/kg (285-295); Potassium 3.6 mmol/L (3.5-5.1); Sodium 132 mmol/L (136-145); Total Protein 6.4 g/dL (6.6-8.7)
[2025-10-13 20:52] VITALS: BP 138/63; PULSE 95; RESP 17; O2SAT 96
== END 2025-10-13 20:53 | disposition home or self-care (01) ==
PROVIDERS: Emergency Provider Physician Assistant; PCP Family Medicine
DX: J06.9 Acute upper respiratory infection, unspecified (principal); Z79.82 Long term (current) use of aspirin; Z87.891 Personal history of nicotine dependence
CPT/HCPCS: 36415; 71045; 80053; 81001; 83605; 84145; 85025; 96374; 99284; J1100

== ENCOUNTER 2025-10-28 10:23 | Outpatient (CLI) | payer MEDICARE, OTHER, SELFPAY ==
[2025-10-28 11:24] LABS: Cholesterol 238 mg/dL (0-200); HDL Cholesterol 62 mg/dL (60-100); Triglycerides 131 mg/dL (0-150)
== END 2025-10-28 10:24 | disposition home or self-care (01) ==
LOC: LAB 10:24
PROVIDERS: PCP Family Medicine; Visit Provider Internal Medicine Cardiovascular Disease
DX: I65.21 Occlusion and stenosis of right carotid artery (principal)
CPT/HCPCS: 36415; 80061